=== PATIENT | female | born 1995 | race Caucasian/White ===

== ENCOUNTER 2021-02-16 08:00 | Outpatient (CLI) | payer SELFPAY | END 2021-02-16 23:59 | LOC: LAB 08:00 | PROVIDERS: ATTEND Nurse Practitioner | DX: L02.91 Cutaneous abscess, unspecified (principal) | CPT/HCPCS: 87070; 87205 ==

== ENCOUNTER 2021-06-28 07:49 | Emergency (ER) | payer OTHER ==
--- NOTE | 2021-06-28 08:19 | ED Physician Documentation ---
PD HPI UPPER EXT INJURY - Stated complaint Stated Complaint: NECK/ARM PX - Chief complaint Chief Complaint: Neuro - History obtained from History obtained from: Patient - History of Present Illness Location: Left, Shoulder, Forearm, Finger Type of injury: No: Fall, Twist (she has noted worsening of chronic neck pain, but with now feeling of radiation to shoulder and down upper arm to forearm/thumb, c/w nerve irritation, either out from neck or more likely at shoulder.) Where injury occurred: Home Timing - onset: How many days ago (few) Timing - duration: Days Timing - details: Gradual onset, Still present Improved by: No: Rest Worsened by: Moving, Palpating Associated symptoms: No: Weakness, Numbness Contributing factors: No: Anticoagulated Review of Systems Constitutional: denies: Fever, Chills Nose: denies: Rhinorrhea / runny nose, Congestion Throat: denies: Sore throat Respiratory: denies: Cough Skin: denies: Rash, Lesions PD PAST MEDICAL HISTORY - Past Medical History Cardiovascular: None Respiratory: None Neuro: Migraines - Present Medications Home Medications: Ambulatory Orders Medication Instructions Recorded Confirmed Acetaminophen [Acetaminophen Extra 500 mg PO QID PRN #50 tablet 06/28/21 Strength] Fluoxetine HCl [Prozac] 20 mg PO DAILY 06/28/21 06/28/21 dexAMETHasone [Decadron] 4 mg PO DAILY #5 tablet 06/28/21 oxyCODONE [Roxicodone] 5 mg PO Q6H PRN #15 tablet 06/28/21 tiZANidine [Zanaflex] 4 mg PO Q8H PRN #20 tablet 06/28/21 - Allergies Allergies/Adverse Reactions: Allergies Allergy/AdvReac Type Severity Reaction Status Date / Time Penicillins Allergy Unknown Verified 06/28/21 08:13 Sulfa (Sulfonamide Allergy Unknown Verified 06/28/21 08:13 Antibiotics) vancomycin Allergy Unknown Verified 06/28/21 08:13 PD ED PE NORMAL - Vitals Vital signs reviewed: Yes - General General: Alert and oriented X 3, Well developed/nourished - HEENT HEENT: PERRL, Pharynx benign - Neck Neck: Supple, no meningeal sign, No adenopathy, Other (soft tissue/muscle tenderness left paracertical area. no rash nor redness. ) - Cardiac Cardiac: RRR, No murmur Results - Vitals Vitals: Vital Signs - 24 hr 06/28/21 06/28/21 08:00 09:10 Temperature 36.5 C 36.5 C Heart Rate 74 57 L Respiratory 18 16 Rate Blood Pressure 138/85 H 120/74 O2 Saturation 98 100 Oxygen O2 Source Room air PD MEDICAL DECISION MAKING - ED course Complexity details: considered differential (seems like cervical nerve distribution. No rash nor sores. No red flags per se. ), d/w patient Departure - Departure Disposition: 01 Home, Self Care Clinical Impression: Cervical radiculopathy Condition: Stable Record reviewed to determine appropriate education?: Yes Instructions: ED Cervical Radiculopathy Follow-Up: AUGUSTO Burrell [Provider Group] Prescriptions: Acetaminophen [Acetaminophen Extra Strength] 500 mg PO QID PRN #50 tablet PRN Reason: Pain dexAMETHasone [Decadron] 4 mg PO DAILY #5 tablet oxyCODONE [Roxicodone] 5 mg PO Q6H PRN #15 tablet PRN Reason: Pain tiZANidine [Zanaflex] 4 mg PO Q8H PRN #20 tablet PRN Reason: Spasms Comments: Your symptoms sound like an irritation of a nerve root from the neck with the pattern of pain and now some numbness in the arm. We can try a combination of some anti-inflammatories and muscle relaxants along with pain medicine. Start with Decadron steroid daily for the next 5 days. You did have a dose today here in the ER. Add tizanidine muscle relaxant 3 times daily over the next week as there can be an element of spasming around the nerve roots. To that add acetaminophen 4 times daily for the pain and then oxycodone every 6- 8 hours if needed for worse pain. See how your symptoms do over the next few days. Look for signs of other symptoms such as other areas involved, rash or sores, skin sensitivity etc. These may suggest other causes. Otherwise if your symptoms persist, follow-up with your primary care later this week if possible or follow-up with walk-in or back here in the ER if not improving or worsening. I transmitted your prescriptions to [facility] in [place]. I am prescribing a short course of narcotic pain medication for you. These are potentially dangerous and addictive medications that should be used carefully. These medications may constipate you. Take an tlem-nij-qwbevie stool softener such as docusate twice daily with plenty of water while taking these medications. If you go 24 hours without a bowel movement, take dzoa-gcf-hwlhjto MiraLAX, per package instructions. Do not drink or drive while taking these medications. If you received narcotic or sedating medications while in the emergency department do not drive for 24 hours. Store this medication in a safe, secure place and out of reach of children. It is a violation of federal law to give or sell this medication to another person or to use in a manner other than prescribed. The ED will not refill narcotic prescriptions, including prescriptions lost or stolen. You can dispose of unwanted medications at the [facility]'s office or at several pharmacies such as [facility]. Discharge Date/Time: 06/28/21 09:12
[2021-06-28] MEDS ORDERED: CHERRY SYRUP 10 ML UDC PO ONE (08:39)
[2021-06-28] MEDS ORDERED: ACETAMINOPHEN 325 MG TABLET PO STA (08:39)
[2021-06-28] MEDS ORDERED: DEXAMETHASONE 10 MG/ML VIAL PO STA (08:39)
[2021-06-28] MEDS ORDERED: methocarbamoL 500 MG TABLET PO STA (08:39)
[2021-06-28 09:12] VITALS: BP 120/74
== END 2021-06-28 09:12 | disposition home or self-care (01) ==
LOC: ED 07:49
DX: M54.12 Radiculopathy, cervical region (principal)
CPT/HCPCS: 99283; 99284; A9270

== ENCOUNTER 2021-07-03 11:34 | Emergency (ER) | payer OTHER ==
[2021-07-03] MEDS ORDERED: KETOROLAC 60 MG/2 ML VIAL IM STA (12:37)
[2021-07-03] MEDS ORDERED: LIDOCAINE PATCH 5% TOP STA (12:37)
--- NOTE | 2021-07-03 12:40 | ED Physician Documentation ---
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 She is always had some level of neck pain which has never really been debilitating. 8 days ago she started to have severe left-sided neck pain radiating down to the third through fifth fingers of the left hand associated with weakness in the left hand. She was seen by my partner on Tuesday and given steroids and pain medications. Finished the steroids yesterday and pain is just as bad as it was. Denies fevers, chills. No saddle anesthesia. She has chronic stress incontinence, no overflow sounding incontinence. Review of Systems Constitutional: reports: Reviewed and negative Eyes: reports: Reviewed and negative Ears: reports: Reviewed and negative Nose: reports: Reviewed and negative Throat: reports: Reviewed and negative Cardiac: reports: Reviewed and negative PD PAST MEDICAL HISTORY - Past Medical History Past Medical History: Yes Cardiovascular: None Respiratory: None Neuro: Migraines - Present Medications Home Medications: Ambulatory Orders Medication Instructions Recorded Confirmed Acetaminophen [Acetaminophen Extra 500 mg PO QID PRN #50 tablet 06/28/21 Strength] Fluoxetine HCl [Prozac] 20 mg PO DAILY 06/28/21 06/28/21 dexAMETHasone [Decadron] 4 mg PO DAILY #5 tablet 06/28/21 oxyCODONE [Roxicodone] 5 mg PO Q6H PRN #15 tablet 06/28/21 tiZANidine [Zanaflex] 4 mg PO Q8H PRN #20 tablet 06/28/21 Morphine Ir [Ms Ir] 15 mg PO Q6H PRN #20 tablet 07/03/21 predniSONE [Deltasone] 20 mg PO [id number] #21 tab 07/03/21 - Allergies Allergies/Adverse Reactions: Allergies Allergy/AdvReac Type Severity Reaction Status Date / Time Penicillins Allergy Unknown Verified 07/03/21 11:49 Sulfa (Sulfonamide Allergy Unknown Verified 07/03/21 11:49 Antibiotics) vancomycin Allergy Unknown Verified 07/03/21 11:49 - Social History Does the pt smoke?: No Smoking Status: Never smoker PD ED PE NORMAL - Vitals Vital signs reviewed: Yes - General General: Alert and oriented X 3, No acute distress - HEENT HEENT: PERRL, EOMI - Neck Neck: Other (Tender to the left side of the neck, seemingly full range of motion.) - Extremities Extremities: Other (Weakness in flexion and extension of the left wrist with intact thumb extension and interosseous strength. Moderate loss of sensation on the medial side of the left hand.) - Neuro Neuro: Alert and oriented X 3, No motor deficit, No sensory deficit, Normal speech Eye Opening: Spontaneous Motor: Obeys Commands Verbal: Oriented GCS Score: 15 - Psych Psych: Normal mood, Normal affect Results - Vitals Vitals: Vital Signs - 24 hr 07/03/21 11:45 Temperature 37.2 C Heart Rate 73 Respiratory 16 Rate Blood Pressure 117/85 H O2 Saturation 97 Oxygen O2 Source Room air PD MEDICAL DECISION MAKING - ED course ED course: 26-year-old woman with signs and symptoms of a cervical radiculopathy, C7 likely. Discussed need for follow-up with PCM and advanced imaging which is not available today if symptoms are persistent. Departure - Departure Disposition: 01 Home, Self Care Clinical Impression: Cervical radiculopathy Condition: Good Record reviewed to determine appropriate education?: Yes Instructions: ED Cervical Radiculopathy Prescriptions: predniSONE [Deltasone] 20 mg PO [id number] #21 tab Morphine Ir [Ms Ir] 15 mg PO Q6H PRN #20 tablet PRN Reason: Pain Comments: As discussed, your symptoms are consistent with a cervical radiculopathy AKA pinched nerve in your neck. The pain can be quite severe and you will need to follow-up with your PCM to discuss further evaluation and treatment. I sent your prescriptions electronically to [facility] in [place]. I am prescribing a short course of narcotic pain medication for you. These are potentially dangerous and addictive medications that should be used carefully. These medications may constipate you. Take an naju-xai-mhrtbys stool softener (docusate) twice daily with plenty of water while taking these medications. If you go 24 hours without a bowel movement, take owyl-fdc-bmpnlpt miralax, per package instructions. Do not drink or drive while taking these medications. If you received narcotic or sedating medications while in the emergency department, do not drive for 24 hours. Store this medication in a safe, secure place and out of reach of children. It is a violation of federal law to give or sell this medication to another person or to use in a manner other than prescribed. The ED will not refill narcotic prescriptions, including prescriptions lost or stolen. To dispose of unwanted medications: 1. [facility] at [address] in [place] has a medication drop box. They accept prescription medications (in pill form) Tuesday through Tuesday 9:00 a.m. to 5:00 p.m. 2. [facility] accepts prescription medications (in pill form only) for disposal year round. Call for more information. 3. Contact the [facility] for the next [facility] sponsored prescription drug collection event. , [phone], or [phone]; Note that many narcotic pain relievers also contain Tylenol/acetaminophen. Pl ease ensure that your total dose of acetaminophen from all sources does not exceed 3 g (3000 mg) per day.
[2021-07-03 12:56] VITALS: BP 122/70
== END 2021-07-03 12:55 | disposition home or self-care (01) ==
LOC: ED 11:34
DX: M54.12 Radiculopathy, cervical region (principal)
CPT/HCPCS: 96372; 99282; 99283; A9270

== ENCOUNTER 2021-09-10 18:12 | Emergency (ER) | payer OTHER ==
--- NOTE | 2021-09-10 18:44 | ED Physician Documentation ---
PD HPI HEADACHE - Stated complaint Stated Complaint: MIGRAINE,VOMITING - Chief complaint Chief Complaint: Neuro - History obtained from History obtained from: Patient - Additional information Additional information: As a toddler she had ALL, and she also has problems with migraines. About 3 weeks ago developed a rash. It was all over and on the palms and soles. She went to her doctor who told her it was chickenpox. Rash defervesced about a week ago but then subsequently her hands peeled and she developed a migraine. She was seen again in the office and was given Nurtec and her migraine is worse after that with more vomiting. Review of Systems Constitutional: reports: Reviewed and negative Eyes: reports: Reviewed and negative Ears: reports: Reviewed and negative Throat: reports: Reviewed and negative Cardiac: reports: Reviewed and negative Respiratory: reports: Reviewed and negative PD PAST MEDICAL HISTORY - Past Medical History Cardiovascular: None Respiratory: None Neuro: Migraines - Present Medications Home Medications: Ambulatory Orders Medication Instructions Recorded Confirmed Acetaminophen [Acetaminophen Extra 500 mg PO QID PRN #50 tablet 06/28/21 Strength] Fluoxetine HCl [Prozac] 20 mg PO DAILY 06/28/21 06/28/21 dexAMETHasone [Decadron] 4 mg PO DAILY #5 tablet 06/28/21 oxyCODONE [Roxicodone] 5 mg PO Q6H PRN #15 tablet 06/28/21 tiZANidine [Zanaflex] 4 mg PO Q8H PRN #20 tablet 06/28/21 Morphine Ir [Ms Ir] 15 mg PO Q6H PRN #20 tablet 07/03/21 predniSONE [Deltasone] 20 mg PO [id number] #21 tab 07/03/21 - Allergies Allergies/Adverse Reactions: Allergies Allergy/AdvReac Type Severity Reaction Status Date / Time Penicillins Allergy Unknown Verified 09/10/21 18:24 Sulfa (Sulfonamide Allergy Unknown Verified 09/10/21 18:24 Antibiotics) vancomycin Allergy Unknown Verified 09/10/21 18:24 - Social History Does the pt smoke?: No Smoking Status: Never smoker PD ED PE NORMAL - Vitals Vital signs reviewed: Yes - General General: Alert and oriented X 3, No acute distress - HEENT HEENT: PERRL, EOMI - Neck Neck: Supple, no meningeal sign, No bony TTP, No adenopathy - Cardiac Cardiac: RRR, No murmur - Respiratory Respiratory: No respiratory distress, Clear bilaterally - Abdomen Abdomen: Non tender - Back Back: No spinal TTP - Derm Derm: Normal color, Warm and dry, Other (There is little peeling to the hands, it looks more like eczema than anything else. No other diffuse rash at this point.) - Neuro Neuro: Alert and oriented X 3, Normal speech Results - Vitals Vitals: Vital Signs - 24 hr 09/10/21 18:24 Temperature 37.1 C Heart Rate 97 Respiratory 18 Rate Blood Pressure 149/86 H O2 Saturation 99 Oxygen O2 Source Room air - Labs Labs: Laboratory Tests 09/10/21 09/10/21 09/10/21 18:53 18:53 18:53 WBC 8.3 RBC 4.28 Hgb 13.8 Hct 40.3 MCV 94.2 MCH 32.2 H MCHC 34.2 RDW 12.2 Plt Count 247 MPV 10.5 Neut # (Auto) 4.8 Lymph # (Auto) 2.2 [place] # (Auto) 0.5 Eos # (Auto) 0.7 Baso # (Auto) 0.1 Absolute Nucleated RBC 0.00 Nucleated RBC % 0.0 ESR 1 Sodium 141 Potassium 3.4 L Chloride 103 Carbon Dioxide 28 Anion Gap 10.0 BUN 11 Creatinine 0.7 Estimated GFR (MDRD) 100 Glucose 93 Calcium 9.8 Total Bilirubin 0.9 AST 16 ALT 14 Alkaline Phosphatase 42 C-Reactive Protein < 1.0 Total Protein 7.3 Albumin 5.0 Globulin 2.3 Albumin/Globulin Ratio 2.2 Urine Color Urine Clarity Urine pH Ur Specific [place] Urine Protein Urine Glucose (UA) Urine Ketones Urine Occult Blood Urine Nitrite Urine Bilirubin Urine Urobilinogen Ur Leukocyte Esterase Ur Microscopic Review Urine Culture Comments Urine HCG, Qual 09/10/21 09/10/21 18:55 18:55 WBC RBC Hgb Hct MCV MCH MCHC RDW Plt Count MPV Neut # (Auto) Lymph # (Auto) [place] # (Auto) Eos # (Auto) Baso # (Auto) Absolute Nucleated RBC Nucleated RBC % ESR Sodium Potassium Chloride Carbon Dioxide Anion Gap BUN Creatinine Estimated GFR (MDRD) Glucose Calcium Total Bilirubin AST ALT Alkaline Phosphatase C-Reactive Protein Total Protein Albumin Globulin Albumin/Globulin Ratio Urine Color YELLOW Urine Clarity CLEAR Urine pH 6.0 Ur Specific [place] 1.025 Urine Protein TRACE Urine Glucose (UA) NEGATIVE Urine Ketones TRACE Urine Occult Blood NEGATIVE Urine Nitrite NEGATIVE Urine Bilirubin NEGATIVE Urine Urobilinogen 1 (NORMAL) Ur Leukocyte Esterase NEGATIVE Ur Microscopic Review NOT INDICATED Urine Culture Comments NOT INDICATED Urine HCG, Qual NEGATIVE PD MEDICAL DECISION MAKING - ED course ED course: 26-year-old woman with resolving rash of unclear etiology. Also migraine headache. Labs were checked and unremarkable including normal sed rate and CRP making a inflammatory or infectious cause unlikely. For the migraine she was driving but was administered Toradol and Reglan with relief. Departure - Departure Disposition: 01 Home, Self Care Clinical Impression: Rash and nonspecific skin eruption Migraine Qualifiers: Migraine type: unspecified Status migrainosus presence: with status migrainosus Intractability: not intractable Qualified Code(s): G43.901 - Migraine, unspecified, not intractable, with status migrainosus Condition: Good Record reviewed to determine appropriate education?: Yes Instructions: ED Headache Migraine Comments: As discussed your inflammatory markers, specifically erythrocyte sedimentation r ate and C-reactive protein are normal. This makes a serious cause of the rash very unlikely. Return for new or worsening symptoms. Follow-up with your primary care physician for recheck next week,
[2021-09-10] MEDS ORDERED: SODIUM CHLORIDE 0.9% 1,000 ML IV STA (18:45)
[2021-09-10] MEDS ORDERED: METOCLOPRAMIDE 10 MG/2 ML VIAL IVP STA (18:45)
[2021-09-10] MEDS ORDERED: KETOROLAC 15 MG/ML VIAL IVP STA (18:45)
[2021-09-10 18:59] LABS: BASOPHILS # (AUTO) 0.1 10^3/uL (0.0-0.1); EOSINOPHILS # (AUTO) 0.7 10^3/uL (0.0-0.7); HCT - HEMATOCRIT 40.3 % (37.0-47.0); HGB - HEMOGLOBIN 13.8 g/dL (12.0-16.0); LYMPHOCYTES # (AUTO) 2.2 10^3/uL (1.5-3.5); LYMPHOCYTES % (AUTO) 26.8 %; MEAN CORPUSCULAR HEMOGLOBIN 32.2 pg (27.0-31.0); MEAN CORPUSCULAR HGB CONC 34.2 g/dL (32.0-36.0); MEAN CORPUSCULAR VOLUME 94.2 fL (81.0-99.0); MEAN PLATELET VOLUME 10.5 fL (7.9-10.8); MONOCYTES # (AUTO) 0.5 10^3/uL (0.0-1.0); MONOCYTES % (AUTO) 6.3 %; NEUTROPHILS # (AUTO) 4.8 10^3/uL (1.5-6.6); NEUTROPHILS % (AUTO) 57.7 %; PLT - PLATELET COUNT 247 10^3/uL (130-450); RED BLOOD COUNT 4.28 10^6/uL (4.20-5.40); RED CELL DISTRIBUTION WIDTH 12.2 % (12.0-15.0); WHITE BLOOD COUNT 8.3 x10^3/uL (4.8-10.8)
--- OUTSIDE RECORDS SUMMARY | 2021-09-10 19:00 | EXTERNAL MEDICAL SUMMARY RPT | Continuity of Care Document ---
:1995 Author Organization [place] Address [address] [place] [address] Phone Allergies and Intolerances date description facility type (no date) [place] [facility] (unknown) (no date) Sulfa (Sulfonamide Antibiotics) [facility] (unknown) (no date) vancomycin [facility] (unknown) Encounters No information. Functional Status No information. Immunizations No information. Medications date description facility + [facility]ocarbamol 750 [facility] gab[facility] 300 MG Oral Capsule [facility] +0000 tramadol hydrochloride 50 MG Oral Tabl et [facility] +0000 Diclofenac Sodium 0.01 MG/MG Topical G el [facility] Problems No information. Procedures date description facility +0000 General Physician [facility] Results/Labs test date author facility value unit interpret ation Result panel 1 (unknown) (no date) (unknown) (unknown) 0 /uL (unkn own) (unknown) (no date) (unknown) (unknown) 0 /uL (unkn own) (unknown) (no date) (unknown) (unknown) 0.1 % (unkn own) (unknown) (no date) (unknown) (unknown) 0.2 % (unkn own) (unknown) (no date) (unknown) (unknown) 1.7 % (unkn own) (unknown) (no date) (unknown) (unknown) 91857 /uL (unkn own) (unknown) (no date) (unknown) (unknown) 13.1 X10 3/uL (unkn own) (unknown) (no date) (unknown) (unknown) 13.5 % (unkn own) (unknown) (no date) (unknown) (unknown) 13.6 g/dL (unkn own) (unknown) (no date) (unknown) (unknown) 200 /uL (unkn own) (unknown) (no date) (unknown) (unknown) 290 X10 3/uL (unkn own) (unknown) (no date) (unknown) (unknown) 31.9 PG (unkn own) (unknown) (no date) (unknown) (unknown) 33.7 % (unkn own) (unknown) (no date) (unknown) (unknown) 4.27 X10 6/uL (unkn own) (unknown) (no date) (unknown) (unknown) 40.4 % (unkn own) (unknown) (no date) (unknown) (unknown) 6.5 % (unkn own) (unknown) (no date) (unknown) (unknown) 800 /uL (unkn own) (unknown) (no date) (unknown) (unknown) 91.5 % (unkn own) (unknown) (no date) (unknown) (unknown) 94.6 fL (unkn own) Result panel 2 (unknown) (no date) (unknown) (unknown) > 60 mL/min (unkn own) (unknown) (no date) (unknown) (unknown) < 0.5 mg/dL (unkn own) (unknown) (no date) (unknown) (unknown) 0.2 mg/dL (unkn own) (unknown) (no date) (unknown) (unknown) 0.92 mg/dL (unkn own) (unknown) (no date) (unknown) (unknown) 1.9 (units unknown) (unknown) (unknown) (no date) (unknown) (unknown) 100 mmol/L (unkn own) (unknown) (no date) (unknown) (unknown) 138 mmol/L (unkn own) (unknown) (no date) (unknown) (unknown) 142 mg/dL (unkn own) (unknown) (no date) (unknown) (unknown) 19 mg/dL (unkn own) (unknown) (no date) (unknown) (unknown) 2.5 g/dL (unkn own) (unknown) (no date) (unknown) (unknown) 20.7 (units unknown) (unknown) (unknown) (no date) (unknown) (unknown) 26 IU/L (unkn own) (unknown) (no date) (unknown) (unknown) 32 mmol/L (unkn own) (unknown) (no date) (unknown) (unknown) 4.6 mmol/L (unkn own) (unknown) (no date) (unknown) (unknown) 4.7 g/dL (unkn own) (unknown) (no date) (unknown) (unknown) 53 IU/L (unkn own) (unknown) (no date) (unknown) (unknown) 55 U/L (unkn own) (unknown) (no date) (unknown) (unknown) 7.2 g/dL (unkn own) (unknown) (no date) (unknown) (unknown) 9.2 mg/dL (unkn own) Result panel 3 (unknown) (no date) (unknown) (unknown) 0 /uL (unkn own) (unknown) (no date) (unknown) (unknown) 0 /uL (unkn own) (unknown) (no date) (unknown) (unknown) 0.1 % (unkn own) (unknown) (no date) (unknown) (unknown) 0.2 % (unkn own) (unknown) (no date) (unknown) (unknown) 1.7 % (unkn own) (unknown) (no date) (unknown) (unknown) 94545 /uL (unkn own) (unknown) (no date) (unknown) (unknown) 13.1 X10 3/uL (unkn own) (unknown) (no date) (unknown) (unknown) 13.5 % (unkn own) (unknown) (no date) (unknown) (unknown) 13.6 g/dL (unkn own) (unknown) (no date) (unknown) (unknown) 2 MM/HR (unkn own) (unknown) (no date) (unknown) (unknown) 200 /uL (unkn own) (unknown) (no date) (unknown) (unknown) 290 X10 3/uL (unkn own) (unknown) (no date) (unknown) (unknown) 31.9 PG (unkn own) (unknown) (no date) (unknown) (unknown) 33.7 % (unkn own) (unknown) (no date) (unknown) (unknown) 4.27 X10 6/uL (unkn own) (unknown) (no date) (unknown) (unknown) 40.4 % (unkn own) (unknown) (no date) (unknown) (unknown) 6.5 % (unkn own) (unknown) (no date) (unknown) (unknown) 800 /uL (unkn own) (unknown) (no date) (unknown) (unknown) 91.5 % (unkn own) (unknown) (no date) (unknown) (unknown) 94.6 fL (unkn own) Result panel 4 (unknown) (no (unknown) (unknown) (no value) (units (unk nown) date) unknown) (unknown) (no (unknown) (unknown) [address] [place] [address] (units (unknown) date) unknown) (unknown) (no (unknown) (unknown) [place], [place] (units ( unknown) date) [id number] unknown) (unknown) (no (unknown) (unknown) CT Scan Report (units (unknown) date) unknown) (unknown) (no (unknown) (unknown) [facility] (units (unknown) date) unknown) (unknown) (no (unknown) (unknown) Signed (units (unkno wn) date) unknown) (unknown) (no (unknown) (unknown) (no value) (units (unk nown) date) unknown) (unknown) (no (unknown) (unknown) 07/07/21 (units (unkno wn) date) unknown) (unknown) (no (unknown) (unknown) 1. No acute (units (un known) date) intracranial unknown) abnormalities. (unknown) (no (unknown) (unknown) Approved by: (units (u nknown) date) Paul Aranda M.D. unknown) on 07/07/2021 at 14:59 (unknown) (no (unknown) (unknown) Approved by: (units (u nknown) date) Paul Aranda M.D. unknown) on 07/07/2021 at 15:05 (unknown) (no (unknown) (unknown) Bones: No (units (unk nown) date) fractures or unknown) dislocations. There is loss of normal cervical (unknown) (no (unknown) (unknown) Brain: No (units (unk nown) date) midline shift. unknown) No intracranial masses or hemorrhage. Wood-white (unknown) (no (unknown) (unknown) COMPARISON: (units (un known) date) None. unknown) (unknown) (no (unknown) (unknown) CSF spaces: (units (un known) date) Basal cisterns unknown) are patent. No extra-axial fluid collections. (unknown) (no (unknown) (unknown) Dictated by: (units (u nknown) date) Paul Aranda M.D. unknown) on 07/07/2021 at 14:58 (unknown) (no (unknown) (unknown) Dictated by: (units (u nknown) date) Paul Aranda M.D. unknown) on 07/07/2021 at 15:00 (unknown) (no (unknown) (unknown) FINDINGS: (units (unkn own) date) unknown) (unknown) (no (unknown) (unknown) IMPRESSION: (units (un known) date) unknown) (unknown) (no (unknown) (unknown) IMPRESSION: (units (un known) date) Loss of normal unknown) cervical lordosis. No fracture. (unknown) (no (unknown) (unknown) INDICATIONS: (units (u nknown) date) head and neck unknown) pain x3 weeks (unknown) (no (unknown) (unknown) Image quality: (units (unknown) date) Excellent. unknown) (unknown) (no (unknown) (unknown) Noncontrast 3 mm (units (unknown) date) thick sections unknown) acquired from the skull base to the T4 level. (unknown) (no (unknown) (unknown) Noncontrast 4.5 (units (unknown) date) mm thick angled unknown) axial sections acquired from the foramen magnum (unknown) (no (unknown) (unknown) Sinuses: (units (unkno wn) date) Visualized unknown) sinuses and mastoids are clear. (unknown) (no (unknown) (unknown) Skull and face: (units (unknown) date) Calvarium and unknown) visualized facial bones are intact, without (unknown) (no (unknown) (unknown) Soft tissues: (units ( unknown) date) Prevertebral soft unknown) tissues are normal in thickness. No (unknown) (no (unknown) (unknown) TECHNIQUE: (units (unk nown) date) unknown) (unknown) (no (unknown) (unknown) Visualized (units (unk nown) date) superior ribs are unknown) intact. (unknown) (no (unknown) (unknown) and coronal (units (un known) date) reformats were unknown) then constructed. For radiation dose reduction, the (unknown) (no (unknown) (unknown) are normal in (units ( unknown) date) size and shape. unknown) (unknown) (no (unknown) (unknown) hematomas. No (units (unknown) date) apical unknown) pneumothoraces. (unknown) (no (unknown) (unknown) interface is (units (u nknown) date) normal. unknown) (unknown) (no (unknown) (unknown) lesions. (units (unkno wn) date) unknown) (unknown) (no (unknown) (unknown) size. (units (unkno wn) date) unknown) (unknown) (no (unknown) (unknown) vertex, with (units (u nknown) date) coronal and unknown) sagittal reformats. For radiation dose reduction, the (unknown) (no (unknown) (unknown) was used: (units (unkn own) date) automated unknown) exposure control, adjustment of mA and/or kV according to (unknown) (no (unknown) (unknown) [id number] (units (unkno wn) date) unknown) (unknown) (no (unknown) (unknown) Accession (units (unkn own) date) Number: unknown) [id number] (unknown) (no (unknown) (unknown) Accession (units (unkn own) date) Number: unknown) [id number] (unknown) (no (unknown) (unknown) Age/Sex: 26 / F (units (unknown) date) Date of unknown) Service: (unknown) (no (unknown) (unknown) : 1995 (units (unknown) date) Acct:[id number] unknown) (unknown) (no (unknown) (unknown) Loc: ED (units (unkno wn) date) unknown) (unknown) (no (unknown) (unknown) Ordering (units (unkno wn) date) Provider: unknown) Latonya Mishra (unknown) (no (unknown) (unknown) PROCEDURE: CT (units (unknown) date) CERVICAL SPINE WO unknown) CON (unknown) (no (unknown) (unknown) PROCEDURE: CT (units (unknown) date) HEAD/BRAIN WO CON unknown) (unknown) (no (unknown) (unknown) Patient: (units (unkno wn) date) [address] L unknown) MR#: [id number] (unknown) (no (unknown) (unknown) Procedure: CT (units ( unknown) date) cervical spine wo unknown) con (unknown) (no (unknown) (unknown) Procedure: CT (units ( unknown) date) head/brain wo con unknown) (unknown) (no (unknown) (unknown) Sagittal (units (unkno wn) date) unknown) (unknown) (no (unknown) (unknown) Ventricles (units (unk nown) date) unknown) (unknown) (no (unknown) (unknown) following (units (unkn own) date) unknown) (unknown) (no (unknown) (unknown) lordosis. (units (unkn own) date) unknown) (unknown) (no (unknown) (unknown) matter (units (unkno wn) date) unknown) (unknown) (no (unknown) (unknown) paravertebral (units ( unknown) date) unknown) (unknown) (no (unknown) (unknown) patient (units (unkno wn) date) unknown) (unknown) (no (unknown) (unknown) suspicious (units (unk nown) date) unknown) (unknown) (no (unknown) (unknown) to the (units (unkno wn) date) unknown) Result panel 5 (unknown) (no (unknown) (unknown) (no value) (units (unk nown) date) unknown) (unknown) (no (unknown) (unknown) *Please continue (units (unknown) date) to take your unknown) regular medications as directed. (unknown) (no (unknown) (unknown) Date of Service: (units (unknown) date) 07/07/21 unknown) (unknown) (no (unknown) (unknown) (no value) (units (unk nown) date) unknown) (unknown) (no (unknown) (unknown) 07/07/21 14:12 (units (unknown) date) unknown) (unknown) (no (unknown) (unknown) 1 patch topical (units (unknown) date) BID PRN (Reason: unknown) pain) Qty: 15 0RF (unknown) (no (unknown) (unknown) 2 g topical QID (units (unknown) date) Qty: 100 0RF unknown) (unknown) (no (unknown) (unknown) 600 mg PO TID 14 (units (unknown) date) Days Qty: 84 0RF unknown) (unknown) (no (unknown) (unknown) Allergies (units (unkn own) date) unknown) (unknown) (no (unknown) (unknown) ED Orders (units (unkn own) date) unknown) (unknown) (no (unknown) (unknown) Emergency Report (units (unknown) date) unknown) (unknown) (no (unknown) (unknown) [facility] (units (unknown) date) [address] unknown) [place] [address] (unknown) (no (unknown) (unknown) Lab Results (units (un known) date) unknown) (unknown) (no (unknown) (unknown) Previous Rx's (units ( unknown) date) unknown) (unknown) (no (unknown) (unknown) Rx Instructions: (units (unknown) date) unknown) (unknown) (no (unknown) (unknown) Skin (units (unkno wn) date) unknown) (unknown) (no (unknown) (unknown) Stop: 07/07/21 (units (unknown) date) 15:19 unknown) (unknown) (no (unknown) (unknown) Vital Signs - 8 (units (unknown) date) hr unknown) (unknown) (no (unknown) (unknown) [ ] New (units (unkno wn) date) medication written unknown) as a paper prescription (unknown) (no (unknown) (unknown) [ ] No new (units (unk nown) date) medications given unknown) (unknown) (no (unknown) (unknown) [ x] New (units (unkno wn) date) medication unknown) prescriptions sent to your pharmacy: [ [facility] (unknown) (no (unknown) (unknown) apply to single (units (unknown) date) elbow, wrist or unknown) hand; for hand includes palm/fingers/back of (unknown) (no (unknown) (unknown) leave on most (units ( unknown) date) painful area for unknown) up to 12 hrs (unknown) (no (unknown) (unknown) (no value) (units (unk nown) date) unknown) (unknown) (no (unknown) (unknown) 07/07/21 07/07/21 (units (unknown) date) Range/Units unknown) (unknown) (no (unknown) (unknown) 14:12 14:12 (units (un known) date) unknown) (unknown) (no (unknown) (unknown) diclofenac sodium (units (unknown) date) [Voltaren unknown) Arthritis Pain] 1 % gel (unknown) (no (unknown) (unknown) gabapentin 300 mg (units (unknown) date) capsule unknown) (unknown) (no (unknown) (unknown) lidocaine (units (unkn own) date) [Lidoderm] 5 % unknown) adhesive patch,medicated (unknown) (no (unknown) (unknown) 07/07/21 (units (unkno wn) date) unknown) (unknown) (no (unknown) (unknown) 3 weeks of (units (unk nown) date) left-sided neck unknown) pain, neuropathy, fatigue, multiple locations of (unknown) (no (unknown) (unknown) Acute neck pain, (units (unknown) date) Fatigue unknown) (unknown) (no (unknown) (unknown) Farson] (units (unkno wn) date) unknown) (unknown) (no (unknown) (unknown) Medication (units (unk nown) date) Instructions unknown) Recorded (unknown) (no (unknown) (unknown) Peripheral (units (unk nown) date) neuropathy type: unknown) polyneuropathy, unspecified Qualified Code(s): (unknown) (no (unknown) (unknown) try and stay (units (u nknown) date) active as your unknown) body allows, this will help release Endo (unknown) (no (unknown) (unknown) (Lidoderm) (units (unk nown) date) unknown) (unknown) (no (unknown) (unknown) (Voltaren (units (unkn own) date) Arthritis Pain) unknown) (unknown) (no (unknown) (unknown) *If you do not (units (unknown) date) have a primary unknown) care provider please contact [phone] to (unknown) (no (unknown) (unknown) *Please follow up (units (unknown) date) with your primary unknown) care provider in 2-3 days, call for an (unknown) (no (unknown) (unknown) *Return to (units (unk nown) date) Emergency unknown) Department if you should have any new, worsening or (unknown) (no (unknown) (unknown) *What to do: (units (u nknown) date) unknown) (unknown) (no (unknown) (unknown) *You have been (units (unknown) date) diagnosed with unknown) pain in multiple locations, fatigue, insomnia, (unknown) (no (unknown) (unknown) 07/07/21 14:12 (units (unknown) date) unknown) (unknown) (no (unknown) (unknown) 07/07/21 15:33 (units (unknown) date) unknown) (unknown) (no (unknown) (unknown) 12:48 (units (unkno wn) date) unknown) (unknown) (no (unknown) (unknown) 9601 (units (unkno wn) date) unknown) (unknown) (no (unknown) (unknown) ALT 53 H (<35) (units (unknown) date) IU/L unknown) (unknown) (no (unknown) (unknown) AST 26 (14-36) (units (unknown) date) IU/L unknown) (unknown) (no (unknown) (unknown) Acetaminophen (units ( unknown) date) (Acetaminophen 325 unknown) Mg Tablet) 975 mg PO NOW ONE (unknown) (no (unknown) (unknown) Activity (units (unkno wn) date) Restrictions/Addit unknown) ional Instructions: (unknown) (no (unknown) (unknown) Age/Sex: 26 / F (units (unknown) date) unknown) (unknown) (no (unknown) (unknown) Albumin 4.7 (units ( unknown) date) (3.5-5.0) g/dL unknown) (unknown) (no (unknown) (unknown) Albumin/Globulin (units (unknown) date) Ratio 1.9 unknown) (1.0-2.8) (unknown) (no (unknown) (unknown) Alkaline (units (unkno wn) date) Phosphatase 55 unknown) (38-126) U/L (unknown) (no (unknown) (unknown) Allergy/AdvReac (units (unknown) date) Type Severity unknown) Reaction Status Date / Time (unknown) (no (unknown) (unknown) Antibiotics) (units (u nknown) date) unknown) (unknown) (no (unknown) (unknown) BUN 19 H (units (unk nown) date) (7-17) mg/dL unknown) (unknown) (no (unknown) (unknown) BUN/Creatinine (units (unknown) date) Ratio 20.7 unknown) (6-22) (unknown) (no (unknown) (unknown) Baso # (Auto) 0 (units (unknown) date) (0-100) /uL unknown) (unknown) (no (unknown) (unknown) Baso % (Auto) (units ( unknown) date) 0.2 (0-2) % unknown) (unknown) (no (unknown) (unknown) Blood Pressure (units (unknown) date) 143/72 H 07/07/21 unknown) 12:48 (unknown) (no (unknown) (unknown) Blood Pressure (units (unknown) date) 143/72 H unknown) (unknown) (no (unknown) (unknown) C-Reactive (units (unk nown) date) Protein < 0.5 unknown) (<1.0) mg/dL (unknown) (no (unknown) (unknown) CBC Auto Diff (units ( unknown) date) [Complete Blood unknown) Count AUTO DIFF] Stat (unknown) (no (unknown) (unknown) CMP (units (unkno wn) date) [Comprehensive unknown) Metabolic Panel] Stat (unknown) (no (unknown) (unknown) CRP [C-Reactive (units (unknown) date) Protein Quant] unknown) Stat (unknown) (no (unknown) (unknown) CT cervical spine (units (unknown) date) wo con Stat unknown) (unknown) (no (unknown) (unknown) CT head/brain wo (units (unknown) date) con Stat unknown) (unknown) (no (unknown) (unknown) Calcium 9.2 (units ( unknown) date) (8.4-10.2) mg/dL unknown) (unknown) (no (unknown) (unknown) Carbon Dioxide (units (unknown) date) 32 (22-32) unknown) mmol/L (unknown) (no (unknown) (unknown) Cardio: denies (units (unknown) date) chest pain, unknown) palpitations, edema (unknown) (no (unknown) (unknown) Cardiovascular: (units (unknown) date) regular rate and unknown) rhythm, no peripheral edema, warm extremities (unknown) (no (unknown) (unknown) Chief Complaint: (units (unknown) date) Neck Pain/Injury unknown) (unknown) (no (unknown) (unknown) Chloride 100 (units (unknown) date) (98-107) mmol/L unknown) (unknown) (no (unknown) (unknown) Clinical (units (unkno wn) date) Impression: unknown) (unknown) (no (unknown) (unknown) Course (units (unkno wn) date) unknown) (unknown) (no (unknown) (unknown) Creatinine 0.92 (units (unknown) date) (0.52-1.04) unknown) mg/dL (unknown) (no (unknown) (unknown) : 1995 (units (unknown) date) Acct:[id number] unknown) (unknown) (no (unknown) (unknown) Departure (units (unkn own) date) unknown) (unknown) (no (unknown) (unknown) Discharge Plan (units (unknown) date) unknown) (unknown) (no (unknown) (unknown) Discontinued (units (u nknown) date) Medications unknown) (unknown) (no (unknown) (unknown) ER Physician: (units ( unknown) date) Latonya Mishra unknown) [employer] (unknown) (no (unknown) (unknown) ESR 2 (0-20) (units (unknown) date) MM/HR unknown) (unknown) (no (unknown) (unknown) Eos # (Auto) 0 (units (unknown) date) (0-450) /uL unknown) (unknown) (no (unknown) (unknown) Eos % (Auto) 0.1 (units (unknown) date) L (2-4) % unknown) (unknown) (no (unknown) (unknown) Erythrocyte (units (un known) date) Sedimentation Rate unknown) Stat (unknown) (no (unknown) (unknown) Estimated GFR > (units (unknown) date) 60 (>60) mL/min unknown) (unknown) (no (unknown) (unknown) Exam (units (unkno wn) date) unknown) (unknown) (no (unknown) (unknown) Exam Narrative: (units (unknown) date) unknown) (unknown) (no (unknown) (unknown) Eyes: denies (units (u nknown) date) visual changes, unknown) eye pain (unknown) (no (unknown) (unknown) Eyes: pupils (units (u nknown) date) equal round and unknown) reactive, EOMI, conjunctiva normal (unknown) (no (unknown) (unknown) G62.9 - (units (unkno wn) date) Polyneuropathy, unknown) unspecified (unknown) (no (unknown) (unknown) GI: abdomen soft, (units (unknown) date) nontender to unknown) palpation, nondistended, no masses, no exquisite (unknown) (no (unknown) (unknown) GI: denies (units (unk n) date) abdominal pain, unknown) nausea, vomiting, or diarrhea (unknown) (no (unknown) (unknown) : denies (units (unk n) date) dysuria, unknown) hematuria, urinary retention, frequency or incontinence (unknown) (no (unknown) (unknown) Gabapentin (units (un) date) (Gabapentin 300 Mg unknown) Capsule) 300 mg PO NOW ONE (unknown) (no (unknown) (unknown) General (units (o wn) date) unknown) (unknown) (no (unknown) (unknown) General: (units (o wn) date) cooperative, unknown) comfortable, in no acute distress, well developed and well (unknown) (no (unknown) (unknown) General: denies (units (unknown) date) fever, chills, unknown) malaise, sweats, endorses daily and crippling (unknown) (no (unknown) (unknown) GenericComposite[ (units (unknown) date) Plt Count 290 unknown) (150-400) X10^3/uL ] (unknown) (no (unknown) (unknown) GenericComposite[ (units (unknown) date) RBC 4.27 unknown) (4.0-5.2) X10^6/uL ] (unknown) (no (unknown) (unknown) GenericComposite[ (units (unknown) date) WBC 13.1 H unknown) (4.5-11.0) X10^3/uL ] (unknown) (no (unknown) (unknown) Globulin 2.5 (units (unknown) date) (1.7-4.1) g/dL unknown) (unknown) (no (unknown) (unknown) Glucose 142 H (units (unknown) date) (70-100) mg/dL unknown) (unknown) (no (unknown) (unknown) HPI - Neck (units (unk nown) date) Pain/Injury unknown) (unknown) (no (unknown) (unknown) HPI Narrative: (units (unknown) date) unknown) (unknown) (no (unknown) (unknown) Hct 40.4 (units (unkn own) date) (36-46) % unknown) (unknown) (no (unknown) (unknown) Head/Neck: denies (units (unknown) date) headache, neck unknown) pain, dizziness (unknown) (no (unknown) (unknown) Head: atraumatic, (units (unknown) date) symmetrical facial unknown) expressions (unknown) (no (unknown) (unknown) Hgb 13.6 (units (unkn own) date) (12.0-16.0) g/dL unknown) (unknown) (no (unknown) (unknown) History of (units (unk nown) date) Present Illness unknown) (unknown) (no (unknown) (unknown) Independently (units ( unknown) date) reviewed vitals unknown) signs and nursing notes. (unknown) (no (unknown) (unknown) Initial Vital (units ( unknown) date) Signs unknown) (unknown) (no (unknown) (unknown) Initial Vital (units ( unknown) date) Signs: unknown) (unknown) (no (unknown) (unknown) Instructions: (units ( unknown) date) Fibromyalgia unknown) (Alternative Therapy), Complex Regional Pain (unknown) (no (unknown) (unknown) Lab Data (units (unkno wn) date) unknown) (unknown) (no (unknown) (unknown) Labs: (units (unkno wn) date) unknown) (unknown) (no (unknown) (unknown) Latuda 2 months (units (unknown) date) ago cold turkey unknown) because she ran out and did not have a (unknown) (no (unknown) (unknown) Lidocaine (units (unkn own) date) (Lidocaine Patch 1 unknown) Each Adh..Patch) 1 each TOP NOW ONE (unknown) (no (unknown) (unknown) Lymph # (Auto) (units (unknown) date) 800 L unknown) (4449-5115) /uL (unknown) (no (unknown) (unknown) Lymph % (Auto) (units (unknown) date) 6.5 L (25-40) % unknown) (unknown) (no (unknown) (unknown) MCH 31.9 (units (unkn own) date) (26-34) PG unknown) (unknown) (no (unknown) (unknown) MCHC 33.7 (units (unk nown) date) (30-36) % unknown) (unknown) (no (unknown) (unknown) MCV 94.6 (units (unkn own) date) (80-100) fL unknown) (unknown) (no (unknown) (unknown) MDM - Neck (units (unk nown) date) Pain/Injury unknown) (unknown) (no (unknown) (unknown) MDM Narrative (units ( unknown) date) unknown) (unknown) (no (unknown) (unknown) MSK: denies joint (units (unknown) date) pain, muscle unknown) weakness (unknown) (no (unknown) (unknown) MSK: moves all (units ( unknown) date) extremities, unknown) ambulatory w/steady gait, neurovascularly intact, no (unknown) (no (unknown) (unknown) Medical decision (units (unknown) date) making narrative: unknown) (unknown) (no (unknown) (unknown) Mode of arrival: (units (unknown) date) Ambulatory unknown) (unknown) (no (unknown) (unknown) [place] # (Auto) (units ( unknown) date) 200 (0-900) /uL unknown) (unknown) (no (unknown) (unknown) [place] % (Auto) (units ( unknown) date) 1.7 L (3-14) % unknown) (unknown) (no (unknown) (unknown) Mouth/Throat: (units ( unknown) date) uvula midline, unknown) moist mucus membranes (unknown) (no (unknown) (unknown) Narrative (units (unkn own) date) unknown) (unknown) (no (unknown) (unknown) Narrative: (units (unk nown) date) unknown) (unknown) (no (unknown) (unknown) Neck: supple, (units ( unknown) date) atraumatic, unknown) without lymphadenopathy. Patient has left trapezius (unknown) (no (unknown) (unknown) Neuro: denies (units ( unknown) date) numbness, tingling unknown) (unknown) (no (unknown) (unknown) Neuro: normal (units ( unknown) date) speech and unknown) cognition, A+O x3, normal tone (unknown) (no (unknown) (unknown) Neut # (Auto) (units ( unknown) date) 24342 H unknown) ([id number]) /uL (unknown) (no (unknown) (unknown) Neut % (Auto) (units ( unknown) date) 91.5 H (50-75) unknown) % (unknown) (no (unknown) (unknown) New (units (unkno wn) date) unknown) (unknown) (no (unknown) (unknown) Nose: nares (units (un known) date) patent, no unknown) rhinorrhea (unknown) (no (unknown) (unknown) Ordered: (units (unkno wn) date) unknown) (unknown) (no (unknown) (unknown) Orders (units (unkno wn) date) unknown) (unknown) (no (unknown) (unknown) Patient (units (unkno wn) date) Disposition: Home unknown) (unknown) (no (unknown) (unknown) Patient History (units (unknown) date) unknown) (unknown) (no (unknown) (unknown) Patient states (units (unknown) date) she does not want unknown) to start taking Latuda again because she did (unknown) (no (unknown) (unknown) Patient: (units (unkno wn) date) [address]ittni [address] unknown) MR#: [id number] (unknown) (no (unknown) (unknown) Penicillins (units (un known) date) Allergy Verified unknown) 07/07/21 12:53 (unknown) (no (unknown) (unknown) Peripheral (units (unk nown) date) neuropathy unknown) (unknown) (no (unknown) (unknown) Potassium 4.6 (units (unknown) date) (3.4-5.1) mmol/L unknown) (unknown) (no (unknown) (unknown) Prescriptions: (units (unknown) date) unknown) (unknown) (no (unknown) (unknown) Psych: mental (units ( unknown) date) status is grossly unknown) normal, congruent mood, normal affect, pleasant (unknown) (no (unknown) (unknown) Pulse Oximetry (units (unknown) date) 98 07/07/21 unknown) 12:48 (unknown) (no (unknown) (unknown) Pulse Oximetry 98 (units (unknown) date) unknown) (unknown) (no (unknown) (unknown) Pulse Rate 65 (units (unknown) date) 07/07/21 12:48 unknown) (unknown) (no (unknown) (unknown) Pulse Rate 65 (units ( unknown) date) unknown) (unknown) (no (unknown) (unknown) Qualifiers: (units (un known) date) unknown) (unknown) (no (unknown) (unknown) RDW 13.5 (units (unkn own) date) (11.6-14.8) % unknown) (unknown) (no (unknown) (unknown) Referrals: (units (unk nown) date) unknown) (unknown) (no (unknown) (unknown) Related Data (units (u nknown) date) unknown) (unknown) (no (unknown) (unknown) Respiratory Rate (units (unknown) date) 16 07/07/21 unknown) 12:48 (unknown) (no (unknown) (unknown) Respiratory Rate (units (unknown) date) 16 unknown) (unknown) (no (unknown) (unknown) Respiratory: (units (u nknown) date) denies dyspnea, unknown) cough, orthopnea (unknown) (no (unknown) (unknown) Respiratory: (units (u nknown) date) normal effort, unknown) able to speak in complete sentences, no audible (unknown) (no (unknown) (unknown) Result diagrams: (units (unknown) date) unknown) (unknown) (no (unknown) (unknown) Review of Systems (units (unknown) date) unknown) (unknown) (no (unknown) (unknown) Signed By: (units (unk nown) date) unknown) (unknown) (no (unknown) (unknown) Skin: brisk (units (un known) date) capillary refill, unknown) no rash, no erythema (unknown) (no (unknown) (unknown) Skin: denies (units (u nknown) date) rash, itching, unknown) skin lesions or other (unknown) (no (unknown) (unknown) Smoking Status: (units (unknown) date) Current every day unknown) smoker (unknown) (no (unknown) (unknown) Smoking Status: (units (unknown) date) Current every day unknown) smoker (unknown) (no (unknown) (unknown) Social History (units (unknown) date) (Reviewed 07/07/21 unknown) @ 15:40 by TOMY Horton) (unknown) (no (unknown) (unknown) Sodium 138 (units (u nknown) date) (137-145) mmol/L unknown) (unknown) (no (unknown) (unknown) Stated Complaint: (units (unknown) date) NECK PAIN TINGLING unknown) OF HAND AND ARMS TIRED (unknown) (no (unknown) (unknown) Substance Use (units ( unknown) date) Type: does not use unknown) (unknown) (no (unknown) (unknown) Sulfa (units (unkno wn) date) (Sulfonamide unknown) Allergy Verified 07/07/21 12:53 (unknown) (no (unknown) (unknown) Syndrome, DI for (units (unknown) date) Neck Pain unknown) (unknown) (no (unknown) (unknown) Temperature 98 F (units (unknown) date) 07/07/21 12:48 unknown) (unknown) (no (unknown) (unknown) Temperature 98 F (units (unknown) date) unknown) (unknown) (no (unknown) (unknown) This is a (units (unkno wn) date) 26-year-old female unknown) presents to the emergency department complaining of (unknown) (no (unknown) (unknown) This is a (units (unkn own) date) 26-year-old female unknown) who presents to the emergency department (unknown) (no (unknown) (unknown) This is treated (units (unknown) date) with multi unknown) modalities including SSRIs, complementary therapies (unknown) (no (unknown) (unknown) Tan Nguyen (units (unknown) date) MD Jamison unknown) [Physician] - (unknown) (no (unknown) (unknown) Time Seen by (units (u nknown) date) Provider: 07/07/21 unknown) 14:42 (unknown) (no (unknown) (unknown) Total Bilirubin (units (unknown) date) 0.2 (0.2-1.3) unknown) mg/dL (unknown) (no (unknown) (unknown) Total Protein (units ( unknown) date) 7.2 (6.3-8.2) unknown) g/dL (unknown) (no (unknown) (unknown) Tylenol and (units (un known) date) states none of unknown) that was very helpful. Patient endorses lidocaine (unknown) (no (unknown) (unknown) Vital Signs (units (un known) date) unknown) (unknown) (no (unknown) (unknown) Vital signs: (units (u nknown) date) unknown) (unknown) (no (unknown) (unknown) [Embedded Image (units (unknown) date) Not Available] unknown) (unknown) (no (unknown) (unknown) activity, stay (units (unknown) date) hydrated, eat food unknown) with ibuprofen so that you do not get an (unknown) (no (unknown) (unknown) alcohol intake (units (unknown) date) frequency: a few unknown) times a week (unknown) (no (unknown) (unknown) and cooperative (units (unknown) date) unknown) (unknown) (no (unknown) (unknown) another (units (unkno wn) date) prescription of unknown) steroids, muscle relaxers, and morphine tablets without (unknown) (no (unknown) (unknown) any other testing (units (unknown) date) completed. unknown) Patient states that she has had 2 urine test this (unknown) (no (unknown) (unknown) appointment. Let (units (unknown) date) them know you were unknown) seen in the Emergency Department and that we (unknown) (no (unknown) (unknown) asked that you be (units (unknown) date) seen for unknown) follow-up. We will electronically transmit a record (unknown) (no (unknown) (unknown) behavioral (units (unk nown) date) therapy, other unknown) oral medications which may work for you, and there is (unknown) (no (unknown) (unknown) cannabinoids (units (u nknown) date) which will treat unknown) your pain from your brain. I wish you the best, (unknown) (no (unknown) (unknown) chills, (units (unkno wn) date) diaphoresis, unknown) abdominal pain, states that she threw up yesterday a.m. but (unknown) (no (unknown) (unknown) cognitive (units (unkn own) date) dysfunction, and unknown) peripheral neuropathy. These are all symptoms of (unknown) (no (unknown) (unknown) complaining of (units (unknown) date) left-sided neck unknown) pain for the last 3 weeks, peripheral neuropathy (unknown) (no (unknown) (unknown) concerning (units (unk nown) date) symptoms, such as unknown) [fever greater than 101F, chills, worsening pain, (unknown) (no (unknown) (unknown) continue to have (units (unknown) date) symptoms. Please unknown) follow-up with a specialist before changing (unknown) (no (unknown) (unknown) days, and (units (unkno wn) date) oxycodone with unknown) muscle relaxers. She states that it did not help much, (unknown) (no (unknown) (unknown) denies any (units (unk nown) date) diarrhea, rash unknown) isolated pain in 1 area. Patient states that she (unknown) (no (unknown) (unknown) diclofenac sodium (units (unknown) date) 1 % topical gel 2 unknown) g TOPICAL QID #100 g 07/07/21 (unknown) (no (unknown) (unknown) establish care (units (unknown) date) with one of the unknown) [facility] primary care providers. (unknown) (no (unknown) (unknown) fatigue (units (unkno wn) date) unknown) (unknown) (no (unknown) (unknown) feels depressed, (units (unknown) date) she has a unknown) psychiatrist appointment on for July 16, 2021. (unknown) (no (unknown) (unknown) fibromyalgia (units (u nknown) date) which is stemming unknown) some under treated for chemicals your brain. (unknown) (no (unknown) (unknown) from her neck. (units (unknown) date) She went to unknown) [place] emergency, was prescribed steroids for 5 (unknown) (no (unknown) (unknown) gabapentin 300 mg (units (unknown) date) capsule 600 mg PO unknown) TID 14 Days #84 caplet 07/07/21 (unknown) (no (unknown) (unknown) groomed (units (unkno wn) date) unknown) (unknown) (no (unknown) (unknown) hand (units (unkno wn) date) unknown) (unknown) (no (unknown) (unknown) in all of her (units ( unknown) date) extremities, unknown) fatigue, depressed mood, and difficulty completing (unknown) (no (unknown) (unknown) incontinence, (units ( unknown) date) dizziness, vision unknown) changes. (unknown) (no (unknown) (unknown) lidocaine 5 % (units ( unknown) date) topical patch 1 unknown) patch TOPICAL BID PRN #15 ea 07/07/21 (unknown) (no (unknown) (unknown) like exercise, (units (unknown) date) yoga, acupuncture, unknown) talk therapy, and actually the 1st to (unknown) (no (unknown) (unknown) likely (units (unkno wn) date) contributing to unknown) her mild leukocytosis of 13.1. (unknown) (no (unknown) (unknown) medications for (units (unknown) date) this neck pain and unknown) neuropathy without any improvement in her (unknown) (no (unknown) (unknown) medications or (units (unknown) date) stopping them unknown) altogether. Please continue taking the Prozac as (unknown) (no (unknown) (unknown) medications used (units (unknown) date) in combo therapy unknown) are gabapentin and like you are on. Please (unknown) (no (unknown) (unknown) muscle relaxers (units (unknown) date) as necessary for unknown) muscle spasms. Please use heat, light (unknown) (no (unknown) (unknown) muscle tension to (units (unknown) date) palpation, no unknown) rash, no masses no tenderness over C-spine (unknown) (no (unknown) (unknown) no evidence that (units (unknown) date) opioids are unknown) effective treatment of this. Evidence suggests (unknown) (no (unknown) (unknown) no other (units (unkno wn) date) vomiting. States unknown) that she had a negative COVID test at home, she (unknown) (no (unknown) (unknown) none of those (units ( unknown) date) have helped at unknown) all. Patient denies any lower extremity weakness, (unknown) (no (unknown) (unknown) not think it (units (u nknown) date) helped her. unknown) Patient has been using lidocaine patches which she (unknown) (no (unknown) (unknown) of today's note (units (unknown) date) if your PCP is in unknown) our system (unknown) (no (unknown) (unknown) pain started on (units (unknown) date) 06/20/2021 with unknown) neuropathy symptoms down into her fingertips (unknown) (no (unknown) (unknown) pain, and has (units ( unknown) date) tried opiates, unknown) muscle relaxers, lidocaine patches, incident (unknown) (no (unknown) (unknown) patches as being (units (unknown) date) the most helpful. unknown) She states she stopped taking Latuda cold (unknown) (no (unknown) (unknown) persistent (units (unk nown) date) vomiting or other unknown) bothersome symptoms] (unknown) (no (unknown) (unknown) please go to your (units (unknown) date) appointment on June unknown) , follow-up with your primary care (unknown) (no (unknown) (unknown) prescriber. 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 Patient states that she stop taking (unknown) (no (unknown) (unknown) starting (units (unkno wn) date) approximately 2 unknown) weeks ago. Patient states that her left-sided neck (unknown) (no (unknown) (unknown) states are the (units (unknown) date) most helpful, unknown) taking morphine tabs, muscle relaxers, and states (unknown) (no (unknown) (unknown) symptoms. She (units (unknown) date) has been afebrile, unknown) completed 2 courses of steroids, this is (unknown) (no (unknown) (unknown) tenderness with (units (unknown) date) exam, without unknown) guarding or rebound. (unknown) (no (unknown) (unknown) that she has been (units (unknown) date) to would be unknown) emergency department 2 times for this neck pain (unknown) (no (unknown) (unknown) that studies show (units (unknown) date) opiates have unknown) adverse effects on chronic pain syndrome. Please (unknown) (no (unknown) (unknown) turkey 2 months (units (unknown) date) ago, she is on 20 unknown) mg of Prozac daily, has been using all these (unknown) (no (unknown) (unknown) ulcer. I wish (units (unknown) date) you the best with unknown) your follow-up. (unknown) (no (unknown) (unknown) vancomycin (units (unk nown) date) AdvReac Redness unknown) of Verified 07/07/21 12:53 (unknown) (no (unknown) (unknown) weakness (units (unkno wn) date) unknown) (unknown) (no (unknown) (unknown) week for (units (unkno wn) date) and they unknown) were both negative. Patient endorses a headache, (unknown) (no (unknown) (unknown) wheezing, (units (unkn own) date) stridor, or rales. unknown) No retractions or tachypnea. (unknown) (no (unknown) (unknown) you are, take (units ( unknown) date) ibuprofen or unknown) Tylenol with food and water as needed for your pain, Result panel 6 (unknown) (no (unknown) (unknown) (no value) (units (unk nown) date) unknown) (unknown) (no (unknown) (unknown) *Please continue (units (unknown) date) to take your unknown) regular medications as directed. (unknown) (no (unknown) (unknown) Date of Service: (units (unknown) date) 07/07/21 unknown) (unknown) (no (unknown) (unknown) (no value) (units (unk nown) date) unknown) (unknown) (no (unknown) (unknown) 07/07/21 14:12 (units (unknown) date) unknown) (unknown) (no (unknown) (unknown) 1 patch topical (units (unknown) date) BID PRN (Reason: unknown) pain) Qty: 15 0RF (unknown) (no (unknown) (unknown) 2 g topical QID (units (unknown) date) Qty: 100 0RF unknown) (unknown) (no (unknown) (unknown) 600 mg PO TID 14 (units (unknown) date) Days Qty: 84 0RF unknown) (unknown) (no (unknown) (unknown) Allergies (units (unkn own) date) unknown) (unknown) (no (unknown) (unknown) Documented by: (units (unknown) date) ARIAN unknown) (unknown) (no (unknown) (unknown) ED Orders (units (unkn own) date) unknown) (unknown) (no (unknown) (unknown) Emergency Report (units (unknown) date) unknown) (unknown) (no (unknown) (unknown) [facility] (units (unknown) date) [address] [place] [address] unknown) [place] [address] (unknown) (no (unknown) (unknown) Lab Results (units (un known) date) unknown) (unknown) (no (unknown) (unknown) Last Admin: (units (un known) date) 07/07/21 15:36 unknown) Dose: 300 mg (unknown) (no (unknown) (unknown) Last Admin: (units (un known) date) 07/07/21 15:36 unknown) Dose: 975 mg (unknown) (no (unknown) (unknown) Last Admin: (units (un known) date) 07/07/21 15:37 unknown) Dose: 1 each (unknown) (no (unknown) (unknown) Previous Rx's (units ( unknown) date) unknown) (unknown) (no (unknown) (unknown) Rx Instructions: (units (unknown) date) unknown) (unknown) (no (unknown) (unknown) Skin (units (unkno wn) date) unknown) (unknown) (no (unknown) (unknown) Stop: 07/07/21 (units (unknown) date) 15:19 unknown) (unknown) (no (unknown) (unknown) Vital Signs - 8 (units (unknown) date) hr unknown) (unknown) (no (unknown) (unknown) [ ] New (units (unkno wn) date) medication written unknown) as a paper prescription (unknown) (no (unknown) (unknown) [ ] No new (units (unk nown) date) medications given unknown) (unknown) (no (unknown) (unknown) [ x] New (units (unkno wn) date) medication unknown) prescriptions sent to your pharmacy: [ [facility] (unknown) (no (unknown) (unknown) apply to single (units (unknown) date) elbow, wrist or unknown) hand; for hand includes palm/fingers/back of (unknown) (no (unknown) (unknown) leave on most (units ( unknown) date) painful area for unknown) up to 12 hrs (unknown) (no (unknown) (unknown) (no value) (units (unk nown) date) unknown) (unknown) (no (unknown) (unknown) 07/07/21 07/07/21 (units (unknown) date) Range/Units unknown) (unknown) (no (unknown) (unknown) 14:12 14:12 (units (un known) date) unknown) (unknown) (no (unknown) (unknown) diclofenac sodium (units (unknown) date) [Voltaren unknown) Arthritis Pain] 1 % gel (unknown) (no (unknown) (unknown) gabapentin 300 mg (units (unknown) date) capsule unknown) (unknown) (no (unknown) (unknown) lidocaine (units (unkn own) date) [Lidoderm] 5 % unknown) adhesive patch,medicated (unknown) (no (unknown) (unknown) 07/07/21 (units (unkno wn) date) unknown) (unknown) (no (unknown) (unknown) 3 weeks of (units (unk nown) date) left-sided neck unknown) pain, neuropathy, fatigue, multiple locations of (unknown) (no (unknown) (unknown) Acute neck pain, (units (unknown) date) Fatigue unknown) (unknown) (no (unknown) (unknown) Farson] (units (unkno wn) date) unknown) (unknown) (no (unknown) (unknown) Medication (units (unk nown) date) Instructions unknown) Recorded (unknown) (no (unknown) (unknown) Peripheral (units (unk nown) date) neuropathy type: unknown) polyneuropathy, unspecified Qualified Code(s): (unknown) (no (unknown) (unknown) try and stay (units (u nknown) date) active as your unknown) body allows, this will help release Endo (unknown) (no (unknown) (unknown) (Lidoderm) (units (unk nown) date) unknown) (unknown) (no (unknown) (unknown) (Voltaren (units (unkn own) date) Arthritis Pain) unknown) (unknown) (no (unknown) (unknown) *If you do not (units (unknown) date) have a primary unknown) care provider please contact [phone] to (unknown) (no (unknown) (unknown) *Please follow up (units (unknown) date) with your primary unknown) care provider in 2-3 days, call for an (unknown) (no (unknown) (unknown) *Return to (units (unk nown) date) Emergency unknown) Department if you should have any new, worsening or (unknown) (no (unknown) (unknown) *What to do: (units (u nknown) date) unknown) (unknown) (no (unknown) (unknown) *You have been (units (unknown) date) diagnosed with unknown) pain in multiple locations, fatigue, insomnia, (unknown) (no (unknown) (unknown) 07/07/21 14:12 (units (unknown) date) unknown) (unknown) (no (unknown) (unknown) 07/07/21 15:33 (units (unknown) date) unknown) (unknown) (no (unknown) (unknown) 07/07/21 15:43 (units (unknown) date) unknown) (unknown) (no (unknown) (unknown) 12:48 (units (unkno wn) date) unknown) (unknown) (no (unknown) (unknown) 9601 (units (unkno wn) date) unknown) (unknown) (no (unknown) (unknown) ALT 53 H (<35) (units (unknown) date) IU/L unknown) (unknown) (no (unknown) (unknown) AST 26 (14-36) (units (unknown) date) IU/L unknown) (unknown) (no (unknown) (unknown) Acetaminophen (units ( unknown) date) (Acetaminophen 325 unknown) Mg Tablet) 975 mg PO NOW ONE (unknown) (no (unknown) (unknown) Activity (units (unkno wn) date) Restrictions/Addit unknown) ional Instructions: (unknown) (no (unknown) (unknown) Age/Sex: 26 / F (units (unknown) date) unknown) (unknown) (no (unknown) (unknown) Albumin 4.7 (units ( unknown) date) (3.5-5.0) g/dL unknown) (unknown) (no (unknown) (unknown) Albumin/Globulin (units (unknown) date) Ratio 1.9 unknown) (1.0-2.8) (unknown) (no (unknown) (unknown) Alkaline (units (unkno wn) date) Phosphatase 55 unknown) (38-126) U/L (unknown) (no (unknown) (unknown) Allergy/AdvReac (units (unknown) date) Type Severity unknown) Reaction Status Date / Time (unknown) (no (unknown) (unknown) Antibiotics) (units (u nknown) date) unknown) (unknown) (no (unknown) (unknown) BUN 19 H (units (unk nown) date) (7-17) mg/dL unknown) (unknown) (no (unknown) (unknown) BUN/Creatinine (units (unknown) date) Ratio 20.7 unknown) (6-22) (unknown) (no (unknown) (unknown) Baso # (Auto) 0 (units (unknown) date) (0-100) /uL unknown) (unknown) (no (unknown) (unknown) Baso % (Auto) (units ( unknown) date) 0.2 (0-2) % unknown) (unknown) (no (unknown) (unknown) Blood Pressure (units (unknown) date) 143/72 H 07/07/21 unknown) 12:48 (unknown) (no (unknown) (unknown) Blood Pressure (units (unknown) date) 143/72 H unknown) (unknown) (no (unknown) (unknown) C-Reactive (units (unk nown) date) Protein < 0.5 unknown) (<1.0) mg/dL (unknown) (no (unknown) (unknown) CBC Auto Diff (units ( unknown) date) [Complete Blood unknown) Count AUTO DIFF] Stat (unknown) (no (unknown) (unknown) CMP (units (unkno wn) date) [Comprehensive unknown) Metabolic Panel] Stat (unknown) (no (unknown) (unknown) CRP [C-Reactive (units (unknown) date) Protein Quant] unknown) Stat (unknown) (no (unknown) (unknown) CT C-spine (units (unk nown) date) unknown) (unknown) (no (unknown) (unknown) CT cervical spine (units (unknown) date) wo con Stat unknown) (unknown) (no (unknown) (unknown) CT head/brain wo (units (unknown) date) con Stat unknown) (unknown) (no (unknown) (unknown) Calcium 9.2 (units ( unknown) date) (8.4-10.2) mg/dL unknown) (unknown) (no (unknown) (unknown) Carbon Dioxide (units (unknown) date) 32 (22-32) unknown) mmol/L (unknown) (no (unknown) (unknown) Cardio: denies (units (unknown) date) chest pain, unknown) palpitations, edema (unknown) (no (unknown) (unknown) Cardiovascular: (units (unknown) date) regular rate and unknown) rhythm, no peripheral edema, warm extremities (unknown) (no (unknown) (unknown) Chief Complaint: (units (unknown) date) Neck Pain/Injury unknown) (unknown) (no (unknown) (unknown) Chloride 100 (units (unknown) date) (98-107) mmol/L unknown) (unknown) (no (unknown) (unknown) Clinical (units (unkno wn) date) Impression: unknown) (unknown) (no (unknown) (unknown) Course (units (unkno wn) date) unknown) (unknown) (no (unknown) (unknown) Creatinine 0.92 (units (unknown) date) (0.52-1.04) unknown) mg/dL (unknown) (no (unknown) (unknown) : 1995 (units (unknown) date) Acct:[id number] unknown) (unknown) (no (unknown) (unknown) Departure (units (unkn own) date) unknown) (unknown) (no (unknown) (unknown) Discharge Plan (units (unknown) date) unknown) (unknown) (no (unknown) (unknown) Discontinued (units (u nknown) date) Medications unknown) (unknown) (no (unknown) (unknown) ER Physician: (units ( unknown) date) GabrielawLatonya unknown) [employer] (unknown) (no (unknown) (unknown) ESR 2 (0-20) (units (unknown) date) MM/HR unknown) (unknown) (no (unknown) (unknown) Eos # (Auto) 0 (units (unknown) date) (0-450) /uL unknown) (unknown) (no (unknown) (unknown) Eos % (Auto) 0.1 (units (unknown) date) L (2-4) % unknown) (unknown) (no (unknown) (unknown) Erythrocyte (units (un known) date) Sedimentation Rate unknown) Stat (unknown) (no (unknown) (unknown) Estimated GFR > (units (unknown) date) 60 (>60) mL/min unknown) (unknown) (no (unknown) (unknown) Exam (units (unkno wn) date) unknown) (unknown) (no (unknown) (unknown) Exam Narrative: (units (unknown) date) unknown) (unknown) (no (unknown) (unknown) Eyes: denies (units (u nknown) date) visual changes, unknown) eye pain (unknown) (no (unknown) (unknown) Eyes: pupils (units (u nknown) date) equal round and unknown) reactive, EOMI, conjunctiva normal (unknown) (no (unknown) (unknown) G62.9 - (units (unkno wn) date) Polyneuropathy, unknown) unspecified (unknown) (no (unknown) (unknown) GI: abdomen soft, (units (unknown) date) nontender to unknown) palpation, nondistended, no masses, no exquisite (unknown) (no (unknown) (unknown) GI: denies (units (unk nown) date) abdominal pain, unknown) nausea, vomiting, or diarrhea (unknown) (no (unknown) (unknown) : denies (units (unk nown) date) dysuria, unknown) hematuria, urinary retention, frequency or incontinence (unknown) (no (unknown) (unknown) Gabapentin (units (unk nown) date) (Gabapentin 300 Mg unknown) Capsule) 300 mg PO NOW ONE (unknown) (no (unknown) (unknown) General (units (unkno wn) date) unknown) (unknown) (no (unknown) (unknown) General: (units (unkno wn) date) cooperative, unknown) comfortable, in no acute distress, well developed and well (unknown) (no (unknown) (unknown) General: denies (units (unknown) date) fever, chills, unknown) malaise, sweats, endorses daily and crippling (unknown) (no (unknown) (unknown) GenericComposite[ (units (unknown) date) Plt Count 290 unknown) (150-400) X10^3/uL ] (unknown) (no (unknown) (unknown) GenericComposite[ (units (unknown) date) RBC 4.27 unknown) (4.0-5.2) X10^6/uL ] (unknown) (no (unknown) (unknown) GenericComposite[ (units (unknown) date) WBC 13.1 H unknown) (4.5-11.0) X10^3/uL ] (unknown) (no (unknown) (unknown) Globulin 2.5 (units (unknown) date) (1.7-4.1) g/dL unknown) (unknown) (no (unknown) (unknown) Glucose 142 H (units (unknown) date) (70-100) mg/dL unknown) (unknown) (no (unknown) (unknown) HPI - Neck (units (unk nown) date) Pain/Injury unknown) (unknown) (no (unknown) (unknown) HPI Narrative: (units (unknown) date) unknown) (unknown) (no (unknown) (unknown) Hct 40.4 (units (unkn own) date) (36-46) % unknown) (unknown) (no (unknown) (unknown) Head/Neck: denies (units (unknown) date) headache, neck unknown) pain, dizziness (unknown) (no (unknown) (unknown) Head: atraumatic, (units (unknown) date) symmetrical facial unknown) expressions (unknown) (no (unknown) (unknown) Hgb 13.6 (units (unkn own) date) (12.0-16.0) g/dL unknown) (unknown) (no (unknown) (unknown) History of (units (unk nown) date) Present Illness unknown) (unknown) (no (unknown) (unknown) Independently (units ( unknown) date) reviewed vitals unknown) signs and nursing notes. (unknown) (no (unknown) (unknown) Initial Vital (units ( unknown) date) Signs unknown) (unknown) (no (unknown) (unknown) Initial Vital (units ( unknown) date) Signs: unknown) (unknown) (no (unknown) (unknown) Instructions: (units ( unknown) date) Fibromyalgia unknown) (Alternative Therapy), Complex Regional Pain (unknown) (no (unknown) (unknown) Lab Data (units (unkno wn) date) unknown) (unknown) (no (unknown) (unknown) Labs: (units (unkno wn) date) unknown) (unknown) (no (unknown) (unknown) Latuda 2 months (units (unknown) date) ago cold turkey unknown) because she ran out and did not have a (unknown) (no (unknown) (unknown) Lidocaine (units (unkn own) date) (Lidocaine Patch 1 unknown) Each Adh..Patch) 1 each TOP NOW ONE (unknown) (no (unknown) (unknown) Lymph # (Auto) (units (unknown) date) 800 L unknown) (4374-1470) /uL (unknown) (no (unknown) (unknown) Lymph % (Auto) (units (unknown) date) 6.5 L (25-40) % unknown) (unknown) (no (unknown) (unknown) MCH 31.9 (units (unkn own) date) (26-34) PG unknown) (unknown) (no (unknown) (unknown) MCHC 33.7 (units (unk nown) date) (30-36) % unknown) (unknown) (no (unknown) (unknown) MCV 94.6 (units (unkn own) date) (80-100) fL unknown) (unknown) (no (unknown) (unknown) MDM - Neck (units (unk nown) date) Pain/Injury unknown) (unknown) (no (unknown) (unknown) MDM Narrative (units ( unknown) date) unknown) (unknown) (no (unknown) (unknown) MSK: denies joint (units (unknown) date) pain, muscle unknown) weakness (unknown) (no (unknown) (unknown) MSK: moves all (units ( unknown) date) extremities, unknown) ambulatory w/steady gait, neurovascularly intact, no (unknown) (no (unknown) (unknown) Medical decision (units (unknown) date) making narrative: unknown) (unknown) (no (unknown) (unknown) Mode of arrival: (units (unknown) date) Ambulatory unknown) (unknown) (no (unknown) (unknown) Appling # (Auto) (units ( unknown) date) 200 (0-900) /uL unknown) (unknown) (no (unknown) (unknown) [place] % (Auto) (units ( unknown) date) 1.7 L (3-14) % unknown) (unknown) (no (unknown) (unknown) Mouth/Throat: (units ( unknown) date) uvula midline, unknown) moist mucus membranes (unknown) (no (unknown) (unknown) Narrative (units (unkn own) date) unknown) (unknown) (no (unknown) (unknown) Narrative: (units (unk nown) date) unknown) (unknown) (no (unknown) (unknown) Neck: supple, (units ( unknown) date) atraumatic, unknown) without lymphadenopathy. Patient has left trapezius (unknown) (no (unknown) (unknown) Neuro: denies (units ( unknown) date) numbness, tingling unknown) (unknown) (no (unknown) (unknown) Neuro: normal (units ( unknown) date) speech and unknown) cognition, A+O x3, normal tone (unknown) (no (unknown) (unknown) Neut # (Auto) (units ( unknown) date) 21673 H unknown) (7555-7849) /uL (unknown) (no (unknown) (unknown) Neut % (Auto) (units ( unknown) date) 91.5 H (50-75) unknown) % (unknown) (no (unknown) (unknown) New (units (unkno wn) date) unknown) (unknown) (no (unknown) (unknown) Nose: nares (units (un known) date) patent, no unknown) rhinorrhea (unknown) (no (unknown) (unknown) Ordered: (units (unkno wn) date) unknown) (unknown) (no (unknown) (unknown) Orders (units (unkno wn) date) unknown) (unknown) (no (unknown) (unknown) Patient (units (unkno wn) date) Disposition: Home unknown) (unknown) (no (unknown) (unknown) Patient History (units (unknown) date) unknown) (unknown) (no (unknown) (unknown) Patient states (units (unknown) date) she does not want unknown) to start taking Latuda again because she did (unknown) (no (unknown) (unknown) Patient: (units (unkno wn) date) brittni Lane unknown) MR#: [id number] (unknown) (no (unknown) (unknown) Penicillins (units (un known) date) Allergy Verified unknown) 07/07/21 12:53 (unknown) (no (unknown) (unknown) Peripheral (units (unk nown) date) neuropathy unknown) (unknown) (no (unknown) (unknown) Potassium 4.6 (units (unknown) date) (3.4-5.1) mmol/L unknown) (unknown) (no (unknown) (unknown) Prescriptions: (units (unknown) date) unknown) (unknown) (no (unknown) (unknown) Psych: mental (units ( unknown) date) status is grossly unknown) normal, congruent mood, normal affect, pleasant (unknown) (no (unknown) (unknown) Pulse Oximetry (units (unknown) date) 98 07/07/21 unknown) 12:48 (unknown) (no (unknown) (unknown) Pulse Oximetry 98 (units (unknown) date) unknown) (unknown) (no (unknown) (unknown) Pulse Rate 65 (units (unknown) date) 07/07/21 12:48 unknown) (unknown) (no (unknown) (unknown) Pulse Rate 65 (units ( unknown) date) unknown) (unknown) (no (unknown) (unknown) Qualifiers: (units (un known) date) unknown) (unknown) (no (unknown) (unknown) RDW 13.5 (units (unkn own) date) (11.6-14.8) % unknown) (unknown) (no (unknown) (unknown) Referrals: (units (unk nown) date) unknown) (unknown) (no (unknown) (unknown) Related Data (units (u nknown) date) unknown) (unknown) (no (unknown) (unknown) Respiratory Rate (units (unknown) date) 16 07/07/21 unknown) 12:48 (unknown) (no (unknown) (unknown) Respiratory Rate (units (unknown) date) 16 unknown) (unknown) (no (unknown) (unknown) Respiratory: (units (u nknown) date) denies dyspnea, unknown) cough, orthopnea (unknown) (no (unknown) (unknown) Respiratory: (units (u nknown) date) normal effort, unknown) able to speak in complete sentences, no audible (unknown) (no (unknown) (unknown) Result diagrams: (units (unknown) date) unknown) (unknown) (no (unknown) (unknown) Review of Systems (units (unknown) date) unknown) (unknown) (no (unknown) (unknown) Signed By: (units (unk nown) date) unknown) (unknown) (no (unknown) (unknown) Skin: brisk (units (un known) date) capillary refill, unknown) no rash, no erythema (unknown) (no (unknown) (unknown) Skin: denies (units (u nknown) date) rash, itching, unknown) skin lesions or other (unknown) (no (unknown) (unknown) Smoking Status: (units (unknown) date) Current every day unknown) smoker (unknown) (no (unknown) (unknown) Smoking Status: (units (unknown) date) Current every day unknown) smoker (unknown) (no (unknown) (unknown) Social History (units (unknown) date) (Reviewed 07/07/21 unknown) @ 15:40 by TOMY Horton) (unknown) (no (unknown) (unknown) Sodium 138 (units (u nknown) date) (137-145) mmol/L unknown) (unknown) (no (unknown) (unknown) Stated Complaint: (units (unknown) date) NECK PAIN TINGLING unknown) OF HAND AND ARMS TIRED (unknown) (no (unknown) (unknown) Substance Use (units ( unknown) date) Type: does not use unknown) (unknown) (no (unknown) (unknown) Sulfa (units (unkno wn) date) (Sulfonamide unknown) Allergy Verified 07/07/21 12:53 (unknown) (no (unknown) (unknown) Syndrome, DI for (units (unknown) date) Neck Pain unknown) (unknown) (no (unknown) (unknown) Temperature 98 F (units (unknown) date) 07/07/21 12:48 unknown) (unknown) (no (unknown) (unknown) Temperature 98 F (units (unknown) date) unknown) (unknown) (no (unknown) (unknown) This is a (units (unkno wn) date) 26-year-old female unknown) presents to the emergency department complaining of (unknown) (no (unknown) (unknown) This is a (units (unkn own) date) 26-year-old female unknown) who presents to the emergency department (unknown) (no (unknown) (unknown) This is treated (units (unknown) date) with multi unknown) modalities including SSRIs, complementary therapies (unknown) (no (unknown) (unknown) Tan Nguyen (units (unknown) date) MD Jamison unknown) [Physician] - (unknown) (no (unknown) (unknown) Time Seen by (units (u nknown) date) Provider: 07/07/21 unknown) 14:42 (unknown) (no (unknown) (unknown) Total Bilirubin (units (unknown) date) 0.2 (0.2-1.3) unknown) mg/dL (unknown) (no (unknown) (unknown) Total Protein (units ( unknown) date) 7.2 (6.3-8.2) unknown) g/dL (unknown) (no (unknown) (unknown) Tylenol and (units (un known) date) states none of unknown) that was very helpful. Patient endorses lidocaine (unknown) (no (unknown) (unknown) Tylenol, (units (unkno wn) date) gabapentin, and a unknown) lidocaine patch in the emergency department she (unknown) (no (unknown) (unknown) UA Complete (units (un known) date) [Urinalysis and unknown) Microscopic] Stat (unknown) (no (unknown) (unknown) Vital Signs (units (un known) date) unknown) (unknown) (no (unknown) (unknown) Vital signs: (units (u nknown) date) unknown) (unknown) (no (unknown) (unknown) [Embedded Image (units (unknown) date) Not Available] unknown) (unknown) (no (unknown) (unknown) activity, stay (units (unknown) date) hydrated, eat food unknown) with ibuprofen so that you do not get an (unknown) (no (unknown) (unknown) alcohol intake (units (unknown) date) frequency: a few unknown) times a week (unknown) (no (unknown) (unknown) already has (units (un known) date) opiates and muscle unknown) relaxers at home but when she was offered (unknown) (no (unknown) (unknown) and cooperative (units (unknown) date) unknown) (unknown) (no (unknown) (unknown) another (units (unkno wn) date) prescription of unknown) steroids, muscle relaxers, and morphine tablets without (unknown) (no (unknown) (unknown) any other testing (units (unknown) date) completed. unknown) Patient states that she has had 2 urine test this (unknown) (no (unknown) (unknown) appointment. Let (units (unknown) date) them know you were unknown) seen in the Emergency Department and that we (unknown) (no (unknown) (unknown) asked that you be (units (unknown) date) seen for unknown) follow-up. We will electronically transmit a record (unknown) (no (unknown) (unknown) behavioral (units (unk nown) date) therapy, other unknown) oral medications which may work for you, and there is (unknown) (no (unknown) (unknown) brain/head/C-spin (units (unknown) date) e. CT head unknown) (unknown) (no (unknown) (unknown) cannabinoids (units (u nknown) date) which will treat unknown) your pain from your brain. I wish you the best, (unknown) (no (unknown) (unknown) chills, (units (unkno wn) date) diaphoresis, unknown) abdominal pain, states that she threw up yesterday a.m. but (unknown) (no (unknown) (unknown) cognitive (units (unkn own) date) dysfunction, and unknown) peripheral neuropathy. These are all symptoms of (unknown) (no (unknown) (unknown) complaining of (units (unknown) date) left-sided neck unknown) pain for the last 3 weeks, peripheral neuropathy (unknown) (no (unknown) (unknown) concerning (units (unk nown) date) symptoms, such as unknown) [fever greater than 101F, chills, worsening pain, (unknown) (no (unknown) (unknown) continue to have (units (unknown) date) symptoms. Please unknown) follow-up with a specialist before changing (unknown) (no (unknown) (unknown) days, and (units (unkno wn) date) oxycodone with unknown) muscle relaxers. She states that it did not help much, (unknown) (no (unknown) (unknown) declined and (units (u nknown) date) states that we are unknown) not doing anything for her. Or there was a (unknown) (no (unknown) (unknown) denies any (units (unk nown) date) diarrhea, rash unknown) isolated pain in 1 area. Patient states that she (unknown) (no (unknown) (unknown) diclofenac sodium (units (unknown) date) 1 % topical gel 2 unknown) g TOPICAL QID #100 g 07/07/21 (unknown) (no (unknown) (unknown) elevated, patient (units (unknown) date) states that unknown) lidocaine patches were the most helpful in she (unknown) (no (unknown) (unknown) establish care (units (unknown) date) with one of the unknown) [facility] primary care providers. (unknown) (no (unknown) (unknown) fatigue (units (unkno wn) date) unknown) (unknown) (no (unknown) (unknown) feels depressed, (units (unknown) date) she has a unknown) psychiatrist appointment on for July 16, 2021. (unknown) (no (unknown) (unknown) fibromyalgia (units (u nknown) date) symptoms. Opted unknown) to rule out tumor or fracture with a CT (unknown) (no (unknown) (unknown) fibromyalgia (units (u nknown) date) which is stemming unknown) some under treated for chemicals your brain. (unknown) (no (unknown) (unknown) from her neck. (units (unknown) date) She went to unknown) [place] emergency, was prescribed steroids for 5 (unknown) (no (unknown) (unknown) gabapentin 300 mg (units (unknown) date) capsule 600 mg PO unknown) TID 14 Days #84 caplet 07/07/21 (unknown) (no (unknown) (unknown) groomed (units (unkno wn) date) unknown) (unknown) (no (unknown) (unknown) hand (units (unkno wn) date) unknown) (unknown) (no (unknown) (unknown) in all of her (units ( unknown) date) extremities, unknown) fatigue, depressed mood, and difficulty completing (unknown) (no (unknown) (unknown) incontinence, (units ( unknown) date) dizziness, vision unknown) changes. (unknown) (no (unknown) (unknown) lidocaine 5 % (units ( unknown) date) topical patch 1 unknown) patch TOPICAL BID PRN #15 ea 07/07/21 (unknown) (no (unknown) (unknown) like exercise, (units (unknown) date) yoga, acupuncture, unknown) talk therapy, and actually the 1st to (unknown) (no (unknown) (unknown) likely (units (unkno wn) date) contributing to unknown) her mild leukocytosis of 13.1. CRP and ESR were not (unknown) (no (unknown) (unknown) medications for (units (unknown) date) this neck pain and unknown) neuropathy without any improvement in her (unknown) (no (unknown) (unknown) medications or (units (unknown) date) stopping them unknown) altogether. Please continue taking the Prozac as (unknown) (no (unknown) (unknown) medications used (units (unknown) date) in combo therapy unknown) are gabapentin and like you are on. Please (unknown) (no (unknown) (unknown) muscle relaxers (units (unknown) date) as necessary for unknown) muscle spasms. Please use heat, light (unknown) (no (unknown) (unknown) muscle tension to (units (unknown) date) palpation, no unknown) rash, no masses no tenderness over C-spine (unknown) (no (unknown) (unknown) mutual decision (units (unknown) date) making between unknown) patient and myself to start her on gabapentin (unknown) (no (unknown) (unknown) no evidence that (units (unknown) date) opioids are unknown) effective treatment of this. Evidence suggests (unknown) (no (unknown) (unknown) no other (units (unkno wn) date) vomiting. States unknown) that she had a negative COVID test at home, she (unknown) (no (unknown) (unknown) none of those (units ( unknown) date) have helped at unknown) all. Patient denies any lower extremity weakness, (unknown) (no (unknown) (unknown) not think it (units (u nknown) date) helped her. unknown) Patient has been using lidocaine patches which she (unknown) (no (unknown) (unknown) of today's note (units (unknown) date) if your PCP is in unknown) our system (unknown) (no (unknown) (unknown) pain started on (units (unknown) date) 06/20/2021 with unknown) neuropathy symptoms down into her fingertips (unknown) (no (unknown) (unknown) pain, and has (units ( unknown) date) tried opiates, unknown) muscle relaxers, lidocaine patches, incident (unknown) (no (unknown) (unknown) patches as being (units (unknown) date) the most helpful. unknown) She states she stopped taking Latuda cold (unknown) (no (unknown) (unknown) persistent (units (unk nown) date) vomiting or other unknown) bothersome symptoms] (unknown) (no (unknown) (unknown) please go to your (units (unknown) date) appointment on June) , follow-up with your primary care (unknown) (no (unknown) (unknown) prescriber. 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 Patient states that she stop taking (unknown) (no (unknown) (unknown) starting (units (unkno wn) date) approximately 2 unknown) weeks ago. Patient states that her left-sided neck (unknown) (no (unknown) (unknown) states are the (units (unknown) date) most helpful, unknown) taking morphine tabs, muscle relaxers, and states (unknown) (no (unknown) (unknown) symptoms. She (units (unknown) date) has been afebrile, unknown) completed 2 courses of steroids, this is (unknown) (no (unknown) (unknown) tenderness with (units (unknown) date) exam, without unknown) guarding or rebound. (unknown) (no (unknown) (unknown) that she has been (units (unknown) date) to would be unknown) emergency department 2 times for this neck pain (unknown) (no (unknown) (unknown) that studies show (units (unknown) date) opiates have unknown) adverse effects on chronic pain syndrome. Please (unknown) (no (unknown) (unknown) turkey 2 months (units (unknown) date) ago, she is on 20 unknown) mg of Prozac daily, has been using all these (unknown) (no (unknown) (unknown) ulcer. I wish (units (unknown) date) you the best with unknown) your follow-up. (unknown) (no (unknown) (unknown) until she sees (units (unknown) date) her psychiatrist unknown) in 9 days to help treat her for her likely (unknown) (no (unknown) (unknown) vancomycin (units (unk nown) date) AdvReac Redness unknown) of Verified 07/07/21 12:53 (unknown) (no (unknown) (unknown) weakness (units (unkno wn) date) unknown) (unknown) (no (unknown) (unknown) week for (units (unkno wn) date) and they unknown) were both negative. Patient endorses a headache, (unknown) (no (unknown) (unknown) wheezing, (units (unkn own) date) stridor, or rales. unknown) No retractions or tachypnea. (unknown) (no (unknown) (unknown) you are, take (units ( unknown) date) ibuprofen or unknown) Tylenol with food and water as needed for your pain, Result panel 7 (unknown) (no (unknown) (unknown) (no value) (units (unk nown) date) unknown) (unknown) (no (unknown) (unknown) *Please continue (units (unknown) date) to take your unknown) regular medications as directed. (unknown) (no (unknown) (unknown) Date of Service: (units (unknown) date) 07/07/21 unknown) (unknown) (no (unknown) (unknown) (no value) (units (unk nown) date) unknown) (unknown) (no (unknown) (unknown) 07/07/21 14:12 (units (unknown) date) unknown) (unknown) (no (unknown) (unknown) 1 patch topical (units (unknown) date) BID PRN (Reason: unknown) pain) Qty: 15 0RF (unknown) (no (unknown) (unknown) 2 g topical QID (units (unknown) date) Qty: 100 0RF unknown) (unknown) (no (unknown) (unknown) 600 mg PO TID 14 (units (unknown) date) Days Qty: 84 0RF unknown) (unknown) (no (unknown) (unknown) Allergies (units (unkn own) date) unknown) (unknown) (no (unknown) (unknown) Documented by: (units (unknown) date) ARIAN unknown) (unknown) (no (unknown) (unknown) ED Orders (units (unkn own) date) unknown) (unknown) (no (unknown) (unknown) Emergency Report (units (unknown) date) unknown) (unknown) (no (unknown) (unknown) [facility] (units (unknown) date) [address] [place] [address] unknown) [place] [address] (unknown) (no (unknown) (unknown) Lab Results (units (un known) date) unknown) (unknown) (no (unknown) (unknown) Last Admin: (units (un known) date) 07/07/21 15:36 unknown) Dose: 300 mg (unknown) (no (unknown) (unknown) Last Admin: (units (un known) date) 07/07/21 15:36 unknown) Dose: 975 mg (unknown) (no (unknown) (unknown) Last Admin: (units (un known) date) 07/07/21 15:37 unknown) Dose: 1 each (unknown) (no (unknown) (unknown) Previous Rx's (units ( unknown) date) unknown) (unknown) (no (unknown) (unknown) Rx Instructions: (units (unknown) date) unknown) (unknown) (no (unknown) (unknown) Skin (units (unkno wn) date) unknown) (unknown) (no (unknown) (unknown) Stop: 07/07/21 (units (unknown) date) 15:19 unknown) (unknown) (no (unknown) (unknown) Vital Signs - 8 hr (units (unknown) date) unknown) (unknown) (no (unknown) (unknown) [ ] New medication (units (unknown) date) written as a paper unknown) prescription (unknown) (no (unknown) (unknown) [ ] No new (units (unk nown) date) medications given unknown) (unknown) (no (unknown) (unknown) [ x] New (units (unkno wn) date) medication unknown) prescriptions sent to your pharmacy: [ [facility] (unknown) (no (unknown) (unknown) apply to single (units (unknown) date) elbow, wrist or unknown) hand; for hand includes palm/fingers/back of (unknown) (no (unknown) (unknown) leave on most (units ( unknown) date) painful area for up unknown) to 12 hrs (unknown) (no (unknown) (unknown) (no value) (units (unk nown) date) unknown) (unknown) (no (unknown) (unknown) 07/07/21 07/07/21 (units (unknown) date) Range/Units unknown) (unknown) (no (unknown) (unknown) 14:12 14:12 (units (un known) date) unknown) (unknown) (no (unknown) (unknown) diclofenac sodium (units (unknown) date) [Voltaren Arthritis unknown) Pain] 1 % gel (unknown) (no (unknown) (unknown) gabapentin 300 mg (units (unknown) date) capsule unknown) (unknown) (no (unknown) (unknown) lidocaine (units (unkn own) date) [Lidoderm] 5 % unknown) adhesive patch,medicated (unknown) (no (unknown) (unknown) 07/07/21 (units (unkno wn) date) unknown) (unknown) (no (unknown) (unknown) 3 weeks of (units (unk nown) date) left-sided neck unknown) pain, neuropathy, fatigue, multiple locations of (unknown) (no (unknown) (unknown) Acute neck pain, (units (unknown) date) Fatigue unknown) (unknown) (no (unknown) (unknown) Farson] (units (unkno wn) date) unknown) (unknown) (no (unknown) (unknown) Medication (units (unk nown) date) Instructions unknown) Recorded (unknown) (no (unknown) (unknown) Peripheral (units (unk nown) date) neuropathy type: unknown) polyneuropathy, unspecified Qualified Code(s): (unknown) (no (unknown) (unknown) acute intracranial (units (unknown) date) abnormality, your unknown) CT of your cervical spine shows loss of (unknown) (no (unknown) (unknown) continue to have (units (unknown) date) symptoms. Please unknown) follow-up with a specialist before changing (unknown) (no (unknown) (unknown) shows loss of (units ( unknown) date) cervical lordosis unknown) without any stenosis or acute abnormality. UA (unknown) (no (unknown) (unknown) (Lidoderm) (units (unk nown) date) unknown) (unknown) (no (unknown) (unknown) (Voltaren (units (unkn own) date) Arthritis Pain) unknown) (unknown) (no (unknown) (unknown) *If you do not (units (unknown) date) have a primary care unknown) provider please contact [phone] to (unknown) (no (unknown) (unknown) *Please follow up (units (unknown) date) with your primary unknown) care provider in 2-3 days, call for an (unknown) (no (unknown) (unknown) *Return to (units (unk nown) date) Emergency unknown) Department if you should have any new, worsening or (unknown) (no (unknown) (unknown) *What to do: (units (u nknown) date) unknown) (unknown) (no (unknown) (unknown) *You have been (units (unknown) date) diagnosed with pain unknown) in multiple locations, fatigue, insomnia, (unknown) (no (unknown) (unknown) 07/07/21 14:12 (units (unknown) date) unknown) (unknown) (no (unknown) (unknown) 07/07/21 15:33 (units (unknown) date) unknown) (unknown) (no (unknown) (unknown) 07/07/21 15:43 (units (unknown) date) unknown) (unknown) (no (unknown) (unknown) 12:48 (units (unkno wn) date) unknown) (unknown) (no (unknown) (unknown) 9601 (units (unkno wn) date) unknown) (unknown) (no (unknown) (unknown) ALT 53 H (<35) (units (unknown) date) IU/L unknown) (unknown) (no (unknown) (unknown) AST 26 (14-36) (units (unknown) date) IU/L unknown) (unknown) (no (unknown) (unknown) Acetaminophen (units ( unknown) date) (Acetaminophen 325 unknown) Mg Tablet) 975 mg PO NOW ONE (unknown) (no (unknown) (unknown) Activity (units (unkno wn) date) Restrictions/Additi unknown) onal Instructions: (unknown) (no (unknown) (unknown) Age/Sex: 26 / F (units (unknown) date) unknown) (unknown) (no (unknown) (unknown) Albumin 4.7 (units ( unknown) date) (3.5-5.0) g/dL unknown) (unknown) (no (unknown) (unknown) Albumin/Globulin (units (unknown) date) Ratio 1.9 unknown) (1.0-2.8) (unknown) (no (unknown) (unknown) Alkaline (units (unkno wn) date) Phosphatase 55 unknown) (38-126) U/L (unknown) (no (unknown) (unknown) Allergy/AdvReac (units (unknown) date) Type Severity unknown) Reaction Status Date / Time (unknown) (no (unknown) (unknown) Antibiotics) (units (u nknown) date) unknown) (unknown) (no (unknown) (unknown) BUN 19 H (7-17) (units (unknown) date) mg/dL unknown) (unknown) (no (unknown) (unknown) BUN/Creatinine (units (unknown) date) Ratio 20.7 unknown) (6-22) (unknown) (no (unknown) (unknown) Baso # (Auto) 0 (units (unknown) date) (0-100) /uL unknown) (unknown) (no (unknown) (unknown) Baso % (Auto) 0.2 (units (unknown) date) (0-2) % unknown) (unknown) (no (unknown) (unknown) Blood Pressure (units (unknown) date) 143/72 H 07/07/21 unknown) 12:48 (unknown) (no (unknown) (unknown) Blood Pressure (units (unknown) date) 143/72 H unknown) (unknown) (no (unknown) (unknown) C-Reactive Protein (units (unknown) date) < 0.5 (<1.0) unknown) mg/dL (unknown) (no (unknown) (unknown) CBC Auto Diff (units ( unknown) date) [Complete Blood unknown) Count AUTO DIFF] Stat (unknown) (no (unknown) (unknown) CMP [Comprehensive (units (unknown) date) Metabolic Panel] unknown) Stat (unknown) (no (unknown) (unknown) CRP [C-Reactive (units (unknown) date) Protein Quant] Stat unknown) (unknown) (no (unknown) (unknown) CT cervical spine (units (unknown) date) wo con Stat unknown) (unknown) (no (unknown) (unknown) CT head/brain wo (units (unknown) date) con Stat unknown) (unknown) (no (unknown) (unknown) Calcium 9.2 (units ( unknown) date) (8.4-10.2) mg/dL unknown) (unknown) (no (unknown) (unknown) Carbon Dioxide (units (unknown) date) 32 (22-32) mmol/L unknown) (unknown) (no (unknown) (unknown) Cardio: denies (units (unknown) date) chest pain, unknown) palpitations, edema (unknown) (no (unknown) (unknown) Cardiovascular: (units (unknown) date) regular rate and unknown) rhythm, no peripheral edema, warm extremities (unknown) (no (unknown) (unknown) Chief Complaint: (units (unknown) date) Neck Pain/Injury unknown) (unknown) (no (unknown) (unknown) Chloride 100 (units (unknown) date) (98-107) mmol/L unknown) (unknown) (no (unknown) (unknown) Clinical (units (unkno wn) date) Impression: unknown) (unknown) (no (unknown) (unknown) Course (units (unkno wn) date) unknown) (unknown) (no (unknown) (unknown) Creatinine 0.92 (units (unknown) date) (0.52-1.04) mg/dL unknown) (unknown) (no (unknown) (unknown) : 1995 (units (unknown) date) Acct:[id number] unknown) (unknown) (no (unknown) (unknown) Departure (units (unkn own) date) unknown) (unknown) (no (unknown) (unknown) Discharge Plan (units (unknown) date) unknown) (unknown) (no (unknown) (unknown) Discontinued (units (u nknown) date) Medications unknown) (unknown) (no (unknown) (unknown) ER Physician: (units ( unknown) date) Latonya Mishra unknown) [employer] (unknown) (no (unknown) (unknown) ESR 2 (0-20) (units (unknown) date) MM/HR unknown) (unknown) (no (unknown) (unknown) Endocannabinoids (units (unknown) date) which will treat unknown) your pain from your brain. I wish you the (unknown) (no (unknown) (unknown) Eos # (Auto) 0 (units (unknown) date) (0-450) /uL unknown) (unknown) (no (unknown) (unknown) Eos % (Auto) 0.1 (units (unknown) date) L (2-4) % unknown) (unknown) (no (unknown) (unknown) Erythrocyte (units (un known) date) Sedimentation Rate unknown) Stat (unknown) (no (unknown) (unknown) Estimated GFR > (units (unknown) date) 60 (>60) mL/min unknown) (unknown) (no (unknown) (unknown) Evidence suggests (units (unknown) date) that opiates have unknown) adverse effects on chronic pain syndromes. (unknown) (no (unknown) (unknown) Exam (units (unkno wn) date) unknown) (unknown) (no (unknown) (unknown) Exam Narrative: (units (unknown) date) unknown) (unknown) (no (unknown) (unknown) Eyes: denies (units (u nknown) date) visual changes, eye unknown) pain (unknown) (no (unknown) (unknown) Eyes: pupils equal (units (unknown) date) round and reactive, unknown) EOMI, conjunctiva normal (unknown) (no (unknown) (unknown) G62.9 - (units (unkno wn) date) Polyneuropathy, unknown) unspecified (unknown) (no (unknown) (unknown) GI: abdomen soft, (units (unknown) date) nontender to unknown) palpation, nondistended, no masses, no exquisite (unknown) (no (unknown) (unknown) GI: denies (units (unk n) date) abdominal pain, unknown) nausea, vomiting, or diarrhea (unknown) (no (unknown) (unknown) : denies (units (unk n) date) dysuria, hematuria, unknown) urinary retention, frequency or incontinence (unknown) (no (unknown) (unknown) Gabapentin (units () date) (Gabapentin 300 Mg unknown) Capsule) 300 mg PO NOW ONE (unknown) (no (unknown) (unknown) General (units (unkno wn) date) unknown) (unknown) (no (unknown) (unknown) General: (units (o wn) date) cooperative, unknown) comfortable, in no acute distress, well developed and well (unknown) (no (unknown) (unknown) General: denies (units (unknown) date) fever, chills, unknown) malaise, sweats, endorses daily and crippling (unknown) (no (unknown) (unknown) GenericComposite[P (units (unknown) date) lt Count 290 unknown) (150-400) X10^3/uL ] (unknown) (no (unknown) (unknown) GenericComposite[R (units (unknown) date) BC 4.27 unknown) (4.0-5.2) X10^6/uL ] (unknown) (no (unknown) (unknown) GenericComposite[W (units (unknown) date) BC 13.1 H unknown) (4.5-11.0) X10^3/uL ] (unknown) (no (unknown) (unknown) Globulin 2.5 (units (unknown) date) (1.7-4.1) g/dL unknown) (unknown) (no (unknown) (unknown) Glucose 142 H (units (unknown) date) (70-100) mg/dL unknown) (unknown) (no (unknown) (unknown) HPI - Neck (units (unk nown) date) Pain/Injury unknown) (unknown) (no (unknown) (unknown) HPI Narrative: (units (unknown) date) unknown) (unknown) (no (unknown) (unknown) Hct 40.4 (units (unkn own) date) (36-46) % unknown) (unknown) (no (unknown) (unknown) Head/Neck: denies (units (unknown) date) headache, neck unknown) pain, dizziness (unknown) (no (unknown) (unknown) Head: atraumatic, (units (unknown) date) symmetrical facial unknown) expressions (unknown) (no (unknown) (unknown) Hgb 13.6 (units (unkn own) date) (12.0-16.0) g/dL unknown) (unknown) (no (unknown) (unknown) History of Present (units (unknown) date) Illness unknown) (unknown) (no (unknown) (unknown) Independently (units ( unknown) date) reviewed vitals unknown) signs and nursing notes. (unknown) (no (unknown) (unknown) Initial Vital (units ( unknown) date) Signs unknown) (unknown) (no (unknown) (unknown) Initial Vital (units ( unknown) date) Signs: unknown) (unknown) (no (unknown) (unknown) Instructions: (units ( unknown) date) Fibromyalgia unknown) (Alternative Therapy), Complex Regional Pain (unknown) (no (unknown) (unknown) Lab Data (units (unkno wn) date) unknown) (unknown) (no (unknown) (unknown) Labs: (units (unkno wn) date) unknown) (unknown) (no (unknown) (unknown) Latuda 2 months (units (unknown) date) ago cold turkey unknown) because she ran out and did not have a (unknown) (no (unknown) (unknown) Lidocaine (units (unkn own) date) (Lidocaine Patch 1 unknown) Each Adh..Patch) 1 each TOP NOW ONE (unknown) (no (unknown) (unknown) Lymph # (Auto) (units (unknown) date) 800 L (2662-5947) unknown) /uL (unknown) (no (unknown) (unknown) Lymph % (Auto) (units (unknown) date) 6.5 L (25-40) % unknown) (unknown) (no (unknown) (unknown) MCH 31.9 (units (unkn own) date) (26-34) PG unknown) (unknown) (no (unknown) (unknown) MCHC 33.7 (units (unk nown) date) (30-36) % unknown) (unknown) (no (unknown) (unknown) MCV 94.6 (units (unkn own) date) (80-100) fL unknown) (unknown) (no (unknown) (unknown) MDM - Neck (units (unk nown) date) Pain/Injury unknown) (unknown) (no (unknown) (unknown) MDM Narrative (units ( unknown) date) unknown) (unknown) (no (unknown) (unknown) MSK: denies joint (units (unknown) date) pain, muscle unknown) weakness (unknown) (no (unknown) (unknown) MSK: moves all (units ( unknown) date) extremities, unknown) ambulatory w/steady gait, neurovascularly intact, no (unknown) (no (unknown) (unknown) Medical decision (units (unknown) date) making narrative: unknown) (unknown) (no (unknown) (unknown) Mode of arrival: (units (unknown) date) Ambulatory unknown) (unknown) (no (unknown) (unknown) [place] # (Auto) 200 (units (unknown) date) (0-900) /uL unknown) (unknown) (no (unknown) (unknown) [place] % (Auto) 1.7 (units (unknown) date) L (3-14) % unknown) (unknown) (no (unknown) (unknown) Mouth/Throat: (units ( unknown) date) uvula midline, unknown) moist mucus membranes (unknown) (no (unknown) (unknown) Narrative (units (unkn own) date) unknown) (unknown) (no (unknown) (unknown) Narrative: (units (unk nown) date) unknown) (unknown) (no (unknown) (unknown) Neck: supple, (units ( unknown) date) atraumatic, without unknown) lymphadenopathy. Patient has left trapezius (unknown) (no (unknown) (unknown) Neuro: denies (units ( unknown) date) numbness, tingling unknown) (unknown) (no (unknown) (unknown) Neuro: normal (units ( unknown) date) speech and unknown) cognition, A+O x3, normal tone (unknown) (no (unknown) (unknown) Neut # (Auto) (units ( unknown) date) 85430 H unknown) (0199-4014) /uL (unknown) (no (unknown) (unknown) Neut % (Auto) (units ( unknown) date) 91.5 H (50-75) % unknown) (unknown) (no (unknown) (unknown) New (units (unkno wn) date) unknown) (unknown) (no (unknown) (unknown) Nose: nares (units (un known) date) patent, no unknown) rhinorrhea (unknown) (no (unknown) (unknown) Ordered: (units (unkno wn) date) unknown) (unknown) (no (unknown) (unknown) Orders (units (unkno wn) date) unknown) (unknown) (no (unknown) (unknown) Patient (units (unkno wn) date) Disposition: Home unknown) (unknown) (no (unknown) (unknown) Patient History (units (unknown) date) unknown) (unknown) (no (unknown) (unknown) Patient states she (units (unknown) date) does not want to unknown) start taking Latuda again because she did (unknown) (no (unknown) (unknown) Patient: (units (unkno wn) date) brittni [address] L unknown) MR#: [id number] (unknown) (no (unknown) (unknown) Penicillins (units (un known) date) Allergy Verified unknown) 07/07/21 12:53 (unknown) (no (unknown) (unknown) Peripheral (units (unk nown) date) neuropathy unknown) (unknown) (no (unknown) (unknown) Please see how the (units (unknown) date) gabapentin helps unknown) your pain, there are other interventions (unknown) (no (unknown) (unknown) Please try and (units (unknown) date) stay active as your unknown) body allows, this will help release (unknown) (no (unknown) (unknown) Potassium 4.6 (units (unknown) date) (3.4-5.1) mmol/L unknown) (unknown) (no (unknown) (unknown) is (units (u nknown) date) negative, CRP ESR unknown) are not elevated. (unknown) (no (unknown) (unknown) Prescriptions: (units (unknown) date) unknown) (unknown) (no (unknown) (unknown) Psych: mental (units ( unknown) date) status is grossly unknown) normal, congruent mood, normal affect, pleasant (unknown) (no (unknown) (unknown) Pulse Oximetry 98 (units (unknown) date) 07/07/21 12:48 unknown) (unknown) (no (unknown) (unknown) Pulse Oximetry 98 (units (unknown) date) unknown) (unknown) (no (unknown) (unknown) Pulse Rate 65 (units (unknown) date) 07/07/21 12:48 unknown) (unknown) (no (unknown) (unknown) Pulse Rate 65 (units ( unknown) date) unknown) (unknown) (no (unknown) (unknown) Qualifiers: (units (un known) date) unknown) (unknown) (no (unknown) (unknown) RDW 13.5 (units (unkn own) date) (11.6-14.8) % unknown) (unknown) (no (unknown) (unknown) Referrals: (units (unk nown) date) unknown) (unknown) (no (unknown) (unknown) Related Data (units (u nknown) date) unknown) (unknown) (no (unknown) (unknown) Respiratory Rate (units (unknown) date) 16 07/07/21 12:48 unknown) (unknown) (no (unknown) (unknown) Respiratory Rate (units (unknown) date) 16 unknown) (unknown) (no (unknown) (unknown) Respiratory: (units (u nknown) date) denies dyspnea, unknown) cough, orthopnea (unknown) (no (unknown) (unknown) Respiratory: (units (u nknown) date) normal effort, able unknown) to speak in complete sentences, no audible (unknown) (no (unknown) (unknown) Result diagrams: (units (unknown) date) unknown) (unknown) (no (unknown) (unknown) Review of Systems (units (unknown) date) unknown) (unknown) (no (unknown) (unknown) Signed By: (units (unk nown) date) unknown) (unknown) (no (unknown) (unknown) Skin: brisk (units (un known) date) capillary refill, unknown) no rash, no erythema (unknown) (no (unknown) (unknown) Skin: denies rash, (units (unknown) date) itching, skin unknown) lesions or other (unknown) (no (unknown) (unknown) Smoking Status: (units (unknown) date) Current every day unknown) smoker (unknown) (no (unknown) (unknown) Smoking Status: (units (unknown) date) Current every day unknown) smoker (unknown) (no (unknown) (unknown) Social History (units (unknown) date) (Reviewed 07/07/21 unknown) @ 15:40 by TOMY Horton) (unknown) (no (unknown) (unknown) Sodium 138 (units (u nknown) date) (137-145) mmol/L unknown) (unknown) (no (unknown) (unknown) Stated Complaint: (units (unknown) date) NECK PAIN TINGLING unknown) OF HAND AND ARMS TIRED (unknown) (no (unknown) (unknown) Substance Use (units ( unknown) date) Type: does not use unknown) (unknown) (no (unknown) (unknown) Sulfa (Sulfonamide (units (unknown) date) Allergy Verified unknown) 07/07/21 12:53 (unknown) (no (unknown) (unknown) Syndrome, DI for (units (unknown) date) Neck Pain unknown) (unknown) (no (unknown) (unknown) Temperature 98 F (units (unknown) date) 07/07/21 12:48 unknown) (unknown) (no (unknown) (unknown) Temperature 98 F (units (unknown) date) unknown) (unknown) (no (unknown) (unknown) This is a (units (unkno wn) date) 26-year-old female unknown) presents to the emergency department complaining of (unknown) (no (unknown) (unknown) This is a (units (unkn own) date) 26-year-old female unknown) who presents to the emergency department (unknown) (no (unknown) (unknown) This is treated (units (unknown) date) with multi unknown) modalities including SSRIs, complementary therapies (unknown) (no (unknown) (unknown) Tan Nguyen (units (unknown) date) MD Jamison unknown) [Physician] - (unknown) (no (unknown) (unknown) Time Seen by (units (u nknown) date) Provider: 07/07/21 unknown) 14:42 (unknown) (no (unknown) (unknown) Total Bilirubin (units (unknown) date) 0.2 (0.2-1.3) unknown) mg/dL (unknown) (no (unknown) (unknown) Total Protein (units ( unknown) date) 7.2 (6.3-8.2) unknown) g/dL (unknown) (no (unknown) (unknown) Tylenol and states (units (unknown) date) none of that was unknown) very helpful. Patient endorses lidocaine (unknown) (no (unknown) (unknown) Tylenol, (units (unkno wn) date) gabapentin, and a unknown) lidocaine patch in the emergency department she (unknown) (no (unknown) (unknown) UA Complete (units (un known) date) [Urinalysis and unknown) Microscopic] Stat (unknown) (no (unknown) (unknown) Vital Signs (units (un known) date) unknown) (unknown) (no (unknown) (unknown) Vital signs: (units (u nknown) date) unknown) (unknown) (no (unknown) (unknown) [Embedded Image (units (unknown) date) Not Available] unknown) (unknown) (no (unknown) (unknown) activity, stay (units (unknown) date) hydrated, eat food unknown) with ibuprofen so that you do not get an (unknown) (no (unknown) (unknown) alcohol intake (units (unknown) date) frequency: a few unknown) times a week (unknown) (no (unknown) (unknown) already has (units (un known) date) opiates and muscle unknown) relaxers at home but when she was offered (unknown) (no (unknown) (unknown) and cooperative (units (unknown) date) unknown) (unknown) (no (unknown) (unknown) another (units (unkno wn) date) prescription of unknown) steroids, muscle relaxers, and morphine tablets without (unknown) (no (unknown) (unknown) any other testing (units (unknown) date) completed. Patient unknown) states that she has had 2 urine test this (unknown) (no (unknown) (unknown) appointment. Let (units (unknown) date) them know you were unknown) seen in the Emergency Department and that we (unknown) (no (unknown) (unknown) are all normal (units (unknown) date) without suspicion unknown) for abnormality. Great news! (unknown) (no (unknown) (unknown) asked that you be (units (unknown) date) seen for follow-up. unknown) We will electronically transmit a record (unknown) (no (unknown) (unknown) best, please go to (units (unknown) date) your appointment on unknown) July 16, follow-up with your primary (unknown) (no (unknown) (unknown) brain/head/C-spine. (units (unknown) date) CT head shows no unknown) acute intracranial abnormality, CT C-spine (unknown) (no (unknown) (unknown) care provider for a (units (unknown) date) referral to unknown) physical therapy and /or advanced imaging if you (unknown) (no (unknown) (unknown) chills, (units (unkno wn) date) diaphoresis, unknown) abdominal pain, states that she threw up yesterday a.m. but (unknown) (no (unknown) (unknown) cognitive (units (unkn own) date) dysfunction, and unknown) peripheral neuropathy. These are all symptoms of (unknown) (no (unknown) (unknown) complaining of (units (unknown) date) left-sided neck unknown) pain for the last 3 weeks, peripheral neuropathy (unknown) (no (unknown) (unknown) concerning (units (unk nown) date) symptoms, such as unknown) [fever greater than 101F, chills, worsening pain, (unknown) (no (unknown) (unknown) days, and oxycodone (units (unknown) date) with muscle unknown) relaxers. She states that it did not help much, (unknown) (no (unknown) (unknown) declined and (units (u nknown) date) states that we are unknown) not doing anything for her. Or there was a (unknown) (no (unknown) (unknown) denies any (units (unk nown) date) diarrhea, rash unknown) isolated pain in 1 area. Patient states that she (unknown) (no (unknown) (unknown) diclofenac sodium (units (unknown) date) 1 % topical gel 2 g unknown) TOPICAL QID #100 g 07/07/21 (unknown) (no (unknown) (unknown) elevated, patient (units (unknown) date) states that unknown) lidocaine patches were the most helpful in she (unknown) (no (unknown) (unknown) establish care (units (unknown) date) with one of the unknown) [facility] primary care providers. (unknown) (no (unknown) (unknown) fatigue (units (unkno wn) date) unknown) (unknown) (no (unknown) (unknown) feels depressed, (units (unknown) date) she has a unknown) psychiatrist appointment on for July 16, 2021. (unknown) (no (unknown) (unknown) fibromyalgia (units (u nknown) date) symptoms. Opted to unknown) rule out tumor or fracture with a CT (unknown) (no (unknown) (unknown) fibromyalgia which (units (unknown) date) is stemming from unknown) undertreated neurochemicals your brain. (unknown) (no (unknown) (unknown) from her neck. (units (unknown) date) She went to [facility] unknown) emergency, was prescribed steroids for 5 (unknown) (no (unknown) (unknown) gabapentin 300 mg (units (unknown) date) capsule 600 mg PO unknown) TID 14 Days #84 caplet 07/07/21 (unknown) (no (unknown) (unknown) groomed (units (unkno wn) date) unknown) (unknown) (no (unknown) (unknown) hand (units (unkno wn) date) unknown) (unknown) (no (unknown) (unknown) in all of her (units ( unknown) date) extremities, unknown) fatigue, depressed mood, and difficulty completing (unknown) (no (unknown) (unknown) include prozac and (units (unknown) date) gabapentin if not unknown) improved on prozac. Your CT brain shows no (unknown) (no (unknown) (unknown) incontinence, (units ( unknown) date) dizziness, vision unknown) changes. (unknown) (no (unknown) (unknown) lidocaine 5 % (units ( unknown) date) topical patch 1 unknown) patch TOPICAL BID PRN #15 ea 07/07/21 (unknown) (no (unknown) (unknown) like cognitive (units (unknown) date) behavioral therapy, unknown) other oral medications which may work for (unknown) (no (unknown) (unknown) like exercise, (units (unknown) date) yoga, acupuncture, unknown) talk therapy, and first line medications (unknown) (no (unknown) (unknown) likely (units (unkno wn) date) contributing to her unknown) mild leukocytosis of 13.1. CRP and ESR were not (unknown) (no (unknown) (unknown) medications for (units (unknown) date) this neck pain and unknown) neuropathy without any improvement in her (unknown) (no (unknown) (unknown) medications or (units (unknown) date) stopping them unknown) altogether. Please continue taking the Prozac as (unknown) (no (unknown) (unknown) muscle relaxers as (units (unknown) date) necessary for unknown) muscle spasms. Please use heat, light (unknown) (no (unknown) (unknown) muscle tension to (units (unknown) date) palpation, no rash, unknown) no masses no tenderness over C-spine (unknown) (no (unknown) (unknown) mutual decision (units (unknown) date) making between unknown) patient and myself to start her on gabapentin (unknown) (no (unknown) (unknown) no other vomiting. (units (unknown) date) States that she unknown) had a negative COVID test at home, she (unknown) (no (unknown) (unknown) none of those have (units (unknown) date) helped at all. unknown) Patient denies any lower extremity weakness, (unknown) (no (unknown) (unknown) normal cervical (units (unknown) date) curvature but no unknown) fracture, stenosis, masses, and soft tissues (unknown) (no (unknown) (unknown) not think it (units (u nknown) date) helped her. unknown) Patient has been using lidocaine patches which she (unknown) (no (unknown) (unknown) of today's note if (units (unknown) date) your PCP is in our unknown) system (unknown) (no (unknown) (unknown) pain started on (units (unknown) date) 06/20/2021 with unknown) neuropathy symptoms down into her fingertips (unknown) (no (unknown) (unknown) pain, and has (units ( unknown) date) tried opiates, unknown) muscle relaxers, lidocaine patches, incident (unknown) (no (unknown) (unknown) patches as being (units (unknown) date) the most helpful. 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 Patient states that she stop taking (unknown) (no (unknown) (unknown) starting (units (unkno wn) date) approximately 2 unknown) weeks ago. Patient states that her left-sided neck (unknown) (no (unknown) (unknown) states are the (units (unknown) date) most helpful, unknown) taking morphine tabs, muscle relaxers, and states (unknown) (no (unknown) (unknown) symptoms. She has (units (unknown) date) been afebrile, unknown) completed 2 courses of steroids, this is (unknown) (no (unknown) (unknown) tenderness with (units (unknown) date) exam, without unknown) guarding or rebound. (unknown) (no (unknown) (unknown) that she has been (units (unknown) date) to would be unknown) emergency department 2 times for this neck pain (unknown) (no (unknown) (unknown) turkey 2 months (units (unknown) date) ago, she is on 20 unknown) mg of Prozac daily, has been using all these (unknown) (no (unknown) (unknown) ulcer. I wish you (units (unknown) date) the best with your unknown) follow-up. (unknown) (no (unknown) (unknown) until she sees her (units (unknown) date) psychiatrist in 9 unknown) days to help treat her for her likely (unknown) (no (unknown) (unknown) vancomycin AdvReac (units (unknown) date) Redness of unknown) Verified 07/07/21 12:53 (unknown) (no (unknown) (unknown) weakness (units (unkno wn) date) unknown) (unknown) (no (unknown) (unknown) week for (units (unknown) date) and they were both unknown) negative. Patient endorses a headache, (unknown) (no (unknown) (unknown) wheezing, stridor, (units (unknown) date) or rales. No unknown) retractions or tachypnea. (unknown) (no (unknown) (unknown) you are, take (units ( unknown) date) ibuprofen or unknown) Tylenol with food and water as needed for your pain, (unknown) (no (unknown) (unknown) you, and there is (units (unknown) date) no evidence that unknown) opioids are effective treatment of this. Result panel 8 (unknown) (no (unknown) (unknown) (no value) (units (unk nown) date) unknown) (unknown) (no (unknown) (unknown) *Please continue (units (unknown) date) to take your unknown) regular medications as directed. (unknown) (no (unknown) (unknown) Date of Service: (units (unknown) date) 07/07/21 unknown) (unknown) (no (unknown) (unknown) (no value) (units (unk nown) date) unknown) (unknown) (no (unknown) (unknown) 07/07/21 14:12 (units (unknown) date) unknown) (unknown) (no (unknown) (unknown) 1 patch topical (units (unknown) date) BID PRN (Reason: unknown) pain) Qty: 15 0RF (unknown) (no (unknown) (unknown) 2 g topical QID (units (unknown) date) Qty: 100 0RF unknown) (unknown) (no (unknown) (unknown) 600 mg PO TID 14 (units (unknown) date) Days Qty: 84 0RF unknown) (unknown) (no (unknown) (unknown) Allergies (units (unkn own) date) unknown) (unknown) (no (unknown) (unknown) Documented by: (units (unknown) date) ABBYKI unknown) (unknown) (no (unknown) (unknown) ED Orders (units (unkn own) date) unknown) (unknown) (no (unknown) (unknown) Emergency Report (units (unknown) date) unknown) (unknown) (no (unknown) (unknown) [facility] (units (unknown) date) [address] [place] [address] unknown) [place] [address] (unknown) (no (unknown) (unknown) Lab Results (units (un known) date) unknown) (unknown) (no (unknown) (unknown) Last Admin: (units (un known) date) 07/07/21 15:36 unknown) Dose: 300 mg (unknown) (no (unknown) (unknown) Last Admin: (units (un known) date) 07/07/21 15:36 unknown) Dose: 975 mg (unknown) (no (unknown) (unknown) Last Admin: (units (un known) date) 07/07/21 15:37 unknown) Dose: 1 each (unknown) (no (unknown) (unknown) Previous Rx's (units ( unknown) date) unknown) (unknown) (no (unknown) (unknown) Rx Instructions: (units (unknown) date) unknown) (unknown) (no (unknown) (unknown) Skin (units (unkno wn) date) unknown) (unknown) (no (unknown) (unknown) Stop: 07/07/21 (units (unknown) date) 15:19 unknown) (unknown) (no (unknown) (unknown) Vital Signs - 8 hr (units (unknown) date) unknown) (unknown) (no (unknown) (unknown) [ ] New medication (units (unknown) date) written as a paper unknown) prescription (unknown) (no (unknown) (unknown) [ ] No new (units (unk nown) date) medications given unknown) (unknown) (no (unknown) (unknown) [ x] New (units (unkno wn) date) medication unknown) prescriptions sent to your pharmacy: [ [facility] (unknown) (no (unknown) (unknown) apply to single (units (unknown) date) elbow, wrist or unknown) hand; for hand includes palm/fingers/back of (unknown) (no (unknown) (unknown) leave on most (units ( unknown) date) painful area for up unknown) to 12 hrs (unknown) (no (unknown) (unknown) (no value) (units (unk nown) date) unknown) (unknown) (no (unknown) (unknown) 07/07/21 07/07/21 (units (unknown) date) Range/Units unknown) (unknown) (no (unknown) (unknown) 14:12 14:12 (units (un known) date) unknown) (unknown) (no (unknown) (unknown) diclofenac sodium (units (unknown) date) [Voltaren Arthritis unknown) Pain] 1 % gel (unknown) (no (unknown) (unknown) gabapentin 300 mg (units (unknown) date) capsule unknown) (unknown) (no (unknown) (unknown) lidocaine (units (unkn own) date) [Lidoderm] 5 % unknown) adhesive patch,medicated (unknown) (no (unknown) (unknown) 07/07/21 (units (unkno wn) date) unknown) (unknown) (no (unknown) (unknown) 3 weeks of (units (unk nown) date) left-sided neck unknown) pain, neuropathy, fatigue, multiple locations of (unknown) (no (unknown) (unknown) Acute neck pain, (units (unknown) date) Fatigue unknown) (unknown) (no (unknown) (unknown) Farson] (units (unkno wn) date) unknown) (unknown) (no (unknown) (unknown) Medication (units (unk nown) date) Instructions unknown) Recorded (unknown) (no (unknown) (unknown) Peripheral (units (unk nown) date) neuropathy type: unknown) polyneuropathy, unspecified Qualified Code(s): (unknown) (no (unknown) (unknown) acute intracranial (units (unknown) date) abnormality, your unknown) CT of your cervical spine shows loss of (unknown) (no (unknown) (unknown) continue to have (units (unknown) date) symptoms. Please unknown) follow-up with a specialist before changing (unknown) (no (unknown) (unknown) shows loss of (units ( unknown) date) cervical lordosis unknown) without any stenosis or acute abnormality. UA (unknown) (no (unknown) (unknown) (Lidoderm) (units (unk nown) date) unknown) (unknown) (no (unknown) (unknown) (Voltaren (units (unkn own) date) Arthritis Pain) unknown) (unknown) (no (unknown) (unknown) *If you do not (units (unknown) date) have a primary care unknown) provider please contact [phone] to (unknown) (no (unknown) (unknown) *Please follow up (units (unknown) date) with your primary unknown) care provider in 2-3 days, call for an (unknown) (no (unknown) (unknown) *Return to (units (unk nown) date) Emergency unknown) Department if you should have any new, worsening or (unknown) (no (unknown) (unknown) *What to do: (units (u nknown) date) unknown) (unknown) (no (unknown) (unknown) *You have been (units (unknown) date) diagnosed with pain unknown) in multiple locations, fatigue, insomnia, (unknown) (no (unknown) (unknown) 07/07/21 14:12 (units (unknown) date) unknown) (unknown) (no (unknown) (unknown) 07/07/21 15:33 (units (unknown) date) unknown) (unknown) (no (unknown) (unknown) 07/07/21 15:43 (units (unknown) date) unknown) (unknown) (no (unknown) (unknown) 07/07/21 16:18 (units (unknown) date) unknown) (unknown) (no (unknown) (unknown) 12:48 (units (unkno wn) date) unknown) (unknown) (no (unknown) (unknown) 9601 (units (unkno wn) date) unknown) (unknown) (no (unknown) (unknown) ALT 53 H (<35) (units (unknown) date) IU/L unknown) (unknown) (no (unknown) (unknown) AST 26 (14-36) (units (unknown) date) IU/L unknown) (unknown) (no (unknown) (unknown) Acetaminophen (units ( unknown) date) (Acetaminophen 325 unknown) Mg Tablet) 975 mg PO NOW ONE (unknown) (no (unknown) (unknown) Activity (units (unkno wn) date) Restrictions/Additi unknown) onal Instructions: (unknown) (no (unknown) (unknown) Age/Sex: 26 / F (units (unknown) date) unknown) (unknown) (no (unknown) (unknown) Albumin 4.7 (units ( unknown) date) (3.5-5.0) g/dL unknown) (unknown) (no (unknown) (unknown) Albumin/Globulin (units (unknown) date) Ratio 1.9 unknown) (1.0-2.8) (unknown) (no (unknown) (unknown) Alkaline (units (unkno wn) date) Phosphatase 55 unknown) (38-126) U/L (unknown) (no (unknown) (unknown) Allergy/AdvReac (units (unknown) date) Type Severity unknown) Reaction Status Date / Time (unknown) (no (unknown) (unknown) Antibiotics) (units (u nknown) date) unknown) (unknown) (no (unknown) (unknown) BUN 19 H (7-17) (units (unknown) date) mg/dL unknown) (unknown) (no (unknown) (unknown) BUN/Creatinine (units (unknown) date) Ratio 20.7 unknown) (6-22) (unknown) (no (unknown) (unknown) Baso # (Auto) 0 (units (unknown) date) (0-100) /uL unknown) (unknown) (no (unknown) (unknown) Baso % (Auto) 0.2 (units (unknown) date) (0-2) % unknown) (unknown) (no (unknown) (unknown) Blood Pressure (units (unknown) date) 143/72 H 07/07/21 unknown) 12:48 (unknown) (no (unknown) (unknown) Blood Pressure (units (unknown) date) 143/72 H unknown) (unknown) (no (unknown) (unknown) C-Reactive Protein (units (unknown) date) < 0.5 (<1.0) unknown) mg/dL (unknown) (no (unknown) (unknown) CBC Auto Diff (units ( unknown) date) [Complete Blood unknown) Count AUTO DIFF] Stat (unknown) (no (unknown) (unknown) CMP [Comprehensive (units (unknown) date) Metabolic Panel] unknown) Stat (unknown) (no (unknown) (unknown) CRP [C-Reactive (units (unknown) date) Protein Quant] Stat unknown) (unknown) (no (unknown) (unknown) CT cervical spine (units (unknown) date) wo con Stat unknown) (unknown) (no (unknown) (unknown) CT head/brain wo (units (unknown) date) con Stat unknown) (unknown) (no (unknown) (unknown) Calcium 9.2 (units ( unknown) date) (8.4-10.2) mg/dL unknown) (unknown) (no (unknown) (unknown) Carbon Dioxide (units (unknown) date) 32 (22-32) mmol/L unknown) (unknown) (no (unknown) (unknown) Cardio: denies (units (unknown) date) chest pain, unknown) palpitations, edema (unknown) (no (unknown) (unknown) Cardiovascular: (units (unknown) date) regular rate and unknown) rhythm, no peripheral edema, warm extremities (unknown) (no (unknown) (unknown) Chief Complaint: (units (unknown) date) Neck Pain/Injury unknown) (unknown) (no (unknown) (unknown) Chloride 100 (units (unknown) date) (98-107) mmol/L unknown) (unknown) (no (unknown) (unknown) Clinical (units (unkno wn) date) Impression: unknown) (unknown) (no (unknown) (unknown) Course (units (unkno wn) date) unknown) (unknown) (no (unknown) (unknown) Creatinine 0.92 (units (unknown) date) (0.52-1.04) mg/dL unknown) (unknown) (no (unknown) (unknown) : 1995 (units (unknown) date) Acct:[id number] unknown) (unknown) (no (unknown) (unknown) Departure (units (unkn own) date) unknown) (unknown) (no (unknown) (unknown) Discharge Plan (units (unknown) date) unknown) (unknown) (no (unknown) (unknown) Discontinued (units (u nknown) date) Medications unknown) (unknown) (no (unknown) (unknown) ER Physician: (units ( unknown) date) Latonya Mishra unknown) [employer]END[employer] (unknown) (no (unknown) (unknown) ESR 2 (0-20) (units (unknown) date) MM/HR unknown) (unknown) (no (unknown) (unknown) Endocannabinoids (units (unknown) date) which will treat unknown) your pain from your brain. I wish you the (unknown) (no (unknown) (unknown) Eos # (Auto) 0 (units (unknown) date) (0-450) /uL unknown) (unknown) (no (unknown) (unknown) Eos % (Auto) 0.1 (units (unknown) date) L (2-4) % unknown) (unknown) (no (unknown) (unknown) Erythrocyte (units (un known) date) Sedimentation Rate unknown) Stat (unknown) (no (unknown) (unknown) Estimated GFR > (units (unknown) date) 60 (>60) mL/min unknown) (unknown) (no (unknown) (unknown) Evidence suggests (units (unknown) date) that opiates have unknown) adverse effects on chronic pain syndromes. (unknown) (no (unknown) (unknown) Exam (units (unkno wn) date) unknown) (unknown) (no (unknown) (unknown) Exam Narrative: (units (unknown) date) unknown) (unknown) (no (unknown) (unknown) Eyes: denies (units (u nknown) date) visual changes, eye unknown) pain (unknown) (no (unknown) (unknown) Eyes: pupils equal (units (unknown) date) round and reactive, unknown) EOMI, conjunctiva normal (unknown) (no (unknown) (unknown) G62.9 - (units (unkno wn) date) Polyneuropathy, unknown) unspecified (unknown) (no (unknown) (unknown) GI: abdomen soft, (units (unknown) date) nontender to unknown) palpation, nondistended, no masses, no exquisite (unknown) (no (unknown) (unknown) GI: denies (units (unk nown) date) abdominal pain, unknown) nausea, vomiting, or diarrhea (unknown) (no (unknown) (unknown) : denies (units (unk nown) date) dysuria, hematuria, unknown) urinary retention, frequency or incontinence (unknown) (no (unknown) (unknown) Gabapentin (units (unk nown) date) (Gabapentin 300 Mg unknown) Capsule) 300 mg PO NOW ONE (unknown) (no (unknown) (unknown) General (units (unkno wn) date) unknown) (unknown) (no (unknown) (unknown) General: (units (unkno wn) date) cooperative, unknown) comfortable, in no acute distress, well developed and well (unknown) (no (unknown) (unknown) General: denies (units (unknown) date) fever, chills, unknown) malaise, sweats, endorses daily and crippling (unknown) (no (unknown) (unknown) GenericComposite[P (units (unknown) date) lt Count 290 unknown) (150-400) X10^3/uL ] (unknown) (no (unknown) (unknown) GenericComposite[R (units (unknown) date) BC 4.27 unknown) (4.0-5.2) X10^6/uL ] (unknown) (no (unknown) (unknown) GenericComposite[W (units (unknown) date) BC 13.1 H unknown) (4.5-11.0) X10^3/uL ] (unknown) (no (unknown) (unknown) Globulin 2.5 (units (unknown) date) (1.7-4.1) g/dL unknown) (unknown) (no (unknown) (unknown) Glucose 142 H (units (unknown) date) (70-100) mg/dL unknown) (unknown) (no (unknown) (unknown) HPI - Neck (units (unk nown) date) Pain/Injury unknown) (unknown) (no (unknown) (unknown) HPI Narrative: (units (unknown) date) unknown) (unknown) (no (unknown) (unknown) Hct 40.4 (units (unkn own) date) (36-46) % unknown) (unknown) (no (unknown) (unknown) Head/Neck: denies (units (unknown) date) headache, neck unknown) pain, dizziness (unknown) (no (unknown) (unknown) Head: atraumatic, (units (unknown) date) symmetrical facial unknown) expressions (unknown) (no (unknown) (unknown) Hgb 13.6 (units (unkn own) date) (12.0-16.0) g/dL unknown) (unknown) (no (unknown) (unknown) History of Present (units (unknown) date) Illness unknown) (unknown) (no (unknown) (unknown) Independently (units ( unknown) date) reviewed vitals unknown) signs and nursing notes. (unknown) (no (unknown) (unknown) Initial Vital (units ( unknown) date) Signs unknown) (unknown) (no (unknown) (unknown) Initial Vital (units ( unknown) date) Signs: unknown) (unknown) (no (unknown) (unknown) Instructions: (units ( unknown) date) Fibromyalgia unknown) (Alternative Therapy), Complex Regional Pain (unknown) (no (unknown) (unknown) Lab Data (units (unkno wn) date) unknown) (unknown) (no (unknown) (unknown) Labs: (units (unkno wn) date) unknown) (unknown) (no (unknown) (unknown) Latuda 2 months (units (unknown) date) ago cold turkey unknown) because she ran out and did not have a (unknown) (no (unknown) (unknown) Lidocaine (units (unkn own) date) (Lidocaine Patch 1 unknown) Each Adh..Patch) 1 each TOP NOW ONE (unknown) (no (unknown) (unknown) Lymph # (Auto) (units (unknown) date) 800 L (0466-8902) unknown) /uL (unknown) (no (unknown) (unknown) Lymph % (Auto) (units (unknown) date) 6.5 L (25-40) % unknown) (unknown) (no (unknown) (unknown) MCH 31.9 (units (unkn own) date) (26-34) PG unknown) (unknown) (no (unknown) (unknown) MCHC 33.7 (units (unk nown) date) (30-36) % unknown) (unknown) (no (unknown) (unknown) MCV 94.6 (units (unkn own) date) (80-100) fL unknown) (unknown) (no (unknown) (unknown) MDM - Neck (units (unk nown) date) Pain/Injury unknown) (unknown) (no (unknown) (unknown) MDM Narrative (units ( unknown) date) unknown) (unknown) (no (unknown) (unknown) MSK: denies joint (units (unknown) date) pain, muscle unknown) weakness (unknown) (no (unknown) (unknown) MSK: moves all (units ( unknown) date) extremities, unknown) ambulatory w/steady gait, neurovascularly intact, no (unknown) (no (unknown) (unknown) Medical decision (units (unknown) date) making narrative: unknown) (unknown) (no (unknown) (unknown) Mode of arrival: (units (unknown) date) Ambulatory unknown) (unknown) (no (unknown) (unknown) [place]ling # (Auto) 200 (units (unknown) date) (0-900) /uL unknown) (unknown) (no (unknown) (unknown) [place] % (Auto) 1.7 (units (unknown) date) L (3-14) % unknown) (unknown) (no (unknown) (unknown) Mouth/Throat: (units ( unknown) date) uvula midline, unknown) moist mucus membranes (unknown) (no (unknown) (unknown) Narrative (units (unkn own) date) unknown) (unknown) (no (unknown) (unknown) Narrative: (units (unk nown) date) unknown) (unknown) (no (unknown) (unknown) Neck: supple, (units ( unknown) date) atraumatic, without unknown) lymphadenopathy. Patient has left trapezius (unknown) (no (unknown) (unknown) Neuro: denies (units ( unknown) date) numbness, tingling unknown) (unknown) (no (unknown) (unknown) Neuro: normal (units ( unknown) date) speech and unknown) cognition, A+O x3, normal tone (unknown) (no (unknown) (unknown) Neut # (Auto) (units ( unknown) date) 53919 H unknown) (5213-6198) /uL (unknown) (no (unknown) (unknown) Neut % (Auto) (units ( unknown) date) 91.5 H (50-75) % unknown) (unknown) (no (unknown) (unknown) New (units (unkno wn) date) unknown) (unknown) (no (unknown) (unknown) Nose: nares (units (un known) date) patent, no unknown) rhinorrhea (unknown) (no (unknown) (unknown) Ordered: (units (unkno wn) date) unknown) (unknown) (no (unknown) (unknown) Orders (units (unkno wn) date) unknown) (unknown) (no (unknown) (unknown) Patient (units (unkno wn) date) Disposition: Home unknown) (unknown) (no (unknown) (unknown) Patient History (units (unknown) date) unknown) (unknown) (no (unknown) (unknown) Patient states she (units (unknown) date) does not want to unknown) start taking Latuda again because she did (unknown) (no (unknown) (unknown) Patient: (units (unkno wn) date) [address]ittni [address] unknown) MR#: [id number] (unknown) (no (unknown) (unknown) Penicillins (units (un known) date) Allergy Verified unknown) 07/07/21 12:53 (unknown) (no (unknown) (unknown) Peripheral (units (unk nown) date) neuropathy unknown) (unknown) (no (unknown) (unknown) Please see how the (units (unknown) date) gabapentin helps unknown) your pain, there are other interventions (unknown) (no (unknown) (unknown) Please try and (units (unknown) date) stay active as your unknown) body allows, this will help release (unknown) (no (unknown) (unknown) Potassium 4.6 (units (unknown) date) (3.4-5.1) mmol/L unknown) (unknown) (no (unknown) (unknown) is (units (u nknown) date) negative, CRP ESR unknown) are not elevated. (unknown) (no (unknown) (unknown) Prescriptions: (units (unknown) date) unknown) (unknown) (no (unknown) (unknown) Psych: mental (units ( unknown) date) status is grossly unknown) normal, congruent mood, normal affect, pleasant (unknown) (no (unknown) (unknown) Pulse Oximetry 98 (units (unknown) date) 07/07/21 12:48 unknown) (unknown) (no (unknown) (unknown) Pulse Oximetry 98 (units (unknown) date) unknown) (unknown) (no (unknown) (unknown) Pulse Rate 65 (units (unknown) date) 07/07/21 12:48 unknown) (unknown) (no (unknown) (unknown) Pulse Rate 65 (units ( unknown) date) unknown) (unknown) (no (unknown) (unknown) Qualifiers: (units (un known) date) unknown) (unknown) (no (unknown) (unknown) RDW 13.5 (units (unkn own) date) (11.6-14.8) % unknown) (unknown) (no (unknown) (unknown) Referrals: (units (unk nown) date) unknown) (unknown) (no (unknown) (unknown) Related Data (units (u nknown) date) unknown) (unknown) (no (unknown) (unknown) Respiratory Rate (units (unknown) date) 16 07/07/21 12:48 unknown) (unknown) (no (unknown) (unknown) Respiratory Rate (units (unknown) date) 16 unknown) (unknown) (no (unknown) (unknown) Respiratory: (units (u nknown) date) denies dyspnea, unknown) cough, orthopnea (unknown) (no (unknown) (unknown) Respiratory: (units (u nknown) date) normal effort, able unknown) to speak in complete sentences, no audible (unknown) (no (unknown) (unknown) Result diagrams: (units (unknown) date) unknown) (unknown) (no (unknown) (unknown) Review of Systems (units (unknown) date) unknown) (unknown) (no (unknown) (unknown) Signed By: (units (unk nown) date) unknown) (unknown) (no (unknown) (unknown) Skin: brisk (units (un known) date) capillary refill, unknown) no rash, no erythema (unknown) (no (unknown) (unknown) Skin: denies rash, (units (unknown) date) itching, skin unknown) lesions or other (unknown) (no (unknown) (unknown) Smoking Status: (units (unknown) date) Current every day unknown) smoker (unknown) (no (unknown) (unknown) Smoking Status: (units (unknown) date) Current every day unknown) smoker (unknown) (no (unknown) (unknown) Social History (units (unknown) date) (Reviewed 07/07/21 unknown) @ 15:40 by Latonya Mishra [employer]) (unknown) (no (unknown) (unknown) Sodium 138 (units (u nknown) date) (137-145) mmol/L unknown) (unknown) (no (unknown) (unknown) Stated Complaint: (units (unknown) date) NECK PAIN TINGLING unknown) OF HAND AND ARMS TIRED (unknown) (no (unknown) (unknown) Substance Use (units ( unknown) date) Type: does not use unknown) (unknown) (no (unknown) (unknown) Sulfa (Sulfonamide (units (unknown) date) Allergy Verified unknown) 07/07/21 12:53 (unknown) (no (unknown) (unknown) Syndrome, DI for (units (unknown) date) Neck Pain unknown) (unknown) (no (unknown) (unknown) Temperature 98 F (units (unknown) date) 07/07/21 12:48 unknown) (unknown) (no (unknown) (unknown) Temperature 98 F (units (unknown) date) unknown) (unknown) (no (unknown) (unknown) This is a (units (unkno wn) date) 26-year-old female unknown) presents to the emergency department complaining of (unknown) (no (unknown) (unknown) This is a (units (unkn own) date) 26-year-old female unknown) who presents to the emergency department (unknown) (no (unknown) (unknown) This is treated (units (unknown) date) with multi unknown) modalities including SSRIs, complementary therapies (unknown) (no (unknown) (unknown) Tan Nguyen (units (unknown) date) MD Jamison unknown) [Physician] - (unknown) (no (unknown) (unknown) Time Seen by (units (u nknown) date) Provider: 07/07/21 unknown) 14:42 (unknown) (no (unknown) (unknown) Total Bilirubin (units (unknown) date) 0.2 (0.2-1.3) unknown) mg/dL (unknown) (no (unknown) (unknown) Total Protein (units ( unknown) date) 7.2 (6.3-8.2) unknown) g/dL (unknown) (no (unknown) (unknown) Tylenol and states (units (unknown) date) none of that was unknown) very helpful. Patient endorses lidocaine (unknown) (no (unknown) (unknown) Tylenol, (units (unkno wn) date) gabapentin, and a unknown) lidocaine patch in the emergency department she (unknown) (no (unknown) (unknown) UA Complete (units (un known) date) [Urinalysis and unknown) Microscopic] Stat (unknown) (no (unknown) (unknown) Urine Culture Stat (units (unknown) date) unknown) (unknown) (no (unknown) (unknown) Urine Microscopic (units (unknown) date) Stat unknown) (unknown) (no (unknown) (unknown) Vital Signs (units (un known) date) unknown) (unknown) (no (unknown) (unknown) Vital signs: (units (u nknown) date) unknown) (unknown) (no (unknown) (unknown) [Embedded Image (units (unknown) date) Not Available] unknown) (unknown) (no (unknown) (unknown) activity, stay (units (unknown) date) hydrated, eat food unknown) with ibuprofen so that you do not get an (unknown) (no (unknown) (unknown) alcohol intake (units (unknown) date) frequency: a few unknown) times a week (unknown) (no (unknown) (unknown) already has (units (un known) date) opiates and muscle unknown) relaxers at home but when she was offered (unknown) (no (unknown) (unknown) and cooperative (units (unknown) date) unknown) (unknown) (no (unknown) (unknown) another (units (unkno wn) date) prescription of unknown) steroids, muscle relaxers, and morphine tablets without (unknown) (no (unknown) (unknown) any other testing (units (unknown) date) completed. Patient unknown) states that she has had 2 urine test this (unknown) (no (unknown) (unknown) appointment. Let (units (unknown) date) them know you were unknown) seen in the Emergency Department and that we (unknown) (no (unknown) (unknown) are all normal (units (unknown) date) without suspicion unknown) for abnormality. Great news! (unknown) (no (unknown) (unknown) asked that you be (units (unknown) date) seen for follow-up. unknown) We will electronically transmit a record (unknown) (no (unknown) (unknown) best, please go to (units (unknown) date) your appointment on unknown) July 16, follow-up with your primary (unknown) (no (unknown) (unknown) brain/head/C-spine. (units (unknown) date) CT head shows no unknown) acute intracranial abnormality, CT C-spine (unknown) (no (unknown) (unknown) care provider for a (units (unknown) date) referral to unknown) physical therapy and /or advanced imaging if you (unknown) (no (unknown) (unknown) chills, (units (unkno wn) date) diaphoresis, unknown) abdominal pain, states that she threw up yesterday a.m. but (unknown) (no (unknown) (unknown) cognitive (units (unkn own) date) dysfunction, and unknown) peripheral neuropathy. These are all symptoms of (unknown) (no (unknown) (unknown) complaining of (units (unknown) date) left-sided neck unknown) pain for the last 3 weeks, peripheral neuropathy (unknown) (no (unknown) (unknown) concerning (units (unk nown) date) symptoms, such as unknown) [fever greater than 101F, chills, worsening pain, (unknown) (no (unknown) (unknown) days, and oxycodone (units (unknown) date) with muscle unknown) relaxers. She states that it did not help much, (unknown) (no (unknown) (unknown) declined and (units (u nknown) date) states that we are unknown) not doing anything for her. Or there was a (unknown) (no (unknown) (unknown) denies any (units (unk nown) date) diarrhea, rash unknown) isolated pain in 1 area. Patient states that she (unknown) (no (unknown) (unknown) diclofenac sodium (units (unknown) date) 1 % topical gel 2 g unknown) TOPICAL QID #100 g 07/07/21 (unknown) (no (unknown) (unknown) elevated, patient (units (unknown) date) states that unknown) lidocaine patches were the most helpful in she (unknown) (no (unknown) (unknown) establish care (units (unknown) date) with one of the unknown) [facility] primary care providers. (unknown) (no (unknown) (unknown) fatigue (units (unkno wn) date) unknown) (unknown) (no (unknown) (unknown) feels depressed, (units (unknown) date) she has a unknown) psychiatrist appointment on for July 16, 2021. (unknown) (no (unknown) (unknown) fibromyalgia (units (u nknown) date) symptoms. Opted to unknown) rule out tumor or fracture with a CT (unknown) (no (unknown) (unknown) fibromyalgia which (units (unknown) date) is stemming from unknown) undertreated neurochemicals your brain. (unknown) (no (unknown) (unknown) from her neck. (units (unknown) date) [facility], was prescribed steroids for 5 (unknown) (no (unknown) (unknown) gabapentin 300 mg (units (unknown) date) capsule 600 mg PO unknown) TID 14 Days #84 caplet 07/07/21 (unknown) (no (unknown) (unknown) groomed (units (unkno wn) date) unknown) (unknown) (no (unknown) (unknown) hand (units (unkno wn) date) unknown) (unknown) (no (unknown) (unknown) in all of her (units ( unknown) date) extremities, unknown) fatigue, depressed mood, and difficulty completing (unknown) (no (unknown) (unknown) include prozac and (units (unknown) date) gabapentin if not unknown) improved on prozac. Your CT brain shows no (unknown) (no (unknown) (unknown) incontinence, (units ( unknown) date) dizziness, vision unknown) changes. (unknown) (no (unknown) (unknown) lidocaine 5 % (units ( unknown) date) topical patch 1 unknown) patch TOPICAL BID PRN #15 ea 07/07/21 (unknown) (no (unknown) (unknown) like cognitive (units (unknown) date) behavioral therapy, unknown) other oral medications which may work for (unknown) (no (unknown) (unknown) like exercise, (units (unknown) date) yoga, acupuncture, unknown) talk therapy, and first line medications (unknown) (no (unknown) (unknown) likely (units (unkno wn) date) contributing to her unknown) mild leukocytosis of 13.1. CRP and ESR were not (unknown) (no (unknown) (unknown) medications for (units (unknown) date) this neck pain and unknown) neuropathy without any improvement in her (unknown) (no (unknown) (unknown) medications or (units (unknown) date) stopping them unknown) altogether. Please continue taking the Prozac as (unknown) (no (unknown) (unknown) muscle relaxers as (units (unknown) date) necessary for unknown) muscle spasms. Please use heat, light (unknown) (no (unknown) (unknown) muscle tension to (units (unknown) date) palpation, no rash, unknown) no masses no tenderness over C-spine (unknown) (no (unknown) (unknown) mutual decision (units (unknown) date) making between unknown) patient and myself to start her on gabapentin (unknown) (no (unknown) (unknown) no other vomiting. (units (unknown) date) States that she unknown) had a negative COVID test at home, she (unknown) (no (unknown) (unknown) none of those have (units (unknown) date) helped at all. unknown) Patient denies any lower extremity weakness, (unknown) (no (unknown) (unknown) normal cervical (units (unknown) date) curvature but no unknown) fracture, stenosis, masses, and soft tissues (unknown) (no (unknown) (unknown) not think it (units (u nknown) date) helped her. unknown) Patient has been using lidocaine patches which she (unknown) (no (unknown) (unknown) of today's note if (units (unknown) date) your PCP is in our unknown) system (unknown) (no (unknown) (unknown) pain started on (units (unknown) date) 06/20/2021 with unknown) neuropathy symptoms down into her fingertips (unknown) (no (unknown) (unknown) pain, and has (units ( unknown) date) tried opiates, unknown) muscle relaxers, lidocaine patches, incident (unknown) (no (unknown) (unknown) patches as being (units (unknown) date) the most helpful. 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 Patient states that she stop taking (unknown) (no (unknown) (unknown) starting (units (unkno wn) date) approximately 2 unknown) weeks ago. Patient states that her left-sided neck (unknown) (no (unknown) (unknown) states are the (units (unknown) date) most helpful, unknown) taking morphine tabs, muscle relaxers, and states (unknown) (no (unknown) (unknown) symptoms. She has (units (unknown) date) been afebrile, unknown) completed 2 courses of steroids, this is (unknown) (no (unknown) (unknown) tenderness with (units (unknown) date) exam, without unknown) guarding or rebound. (unknown) (no (unknown) (unknown) that she has been (units (unknown) date) to would be unknown) emergency department 2 times for this neck pain (unknown) (no (unknown) (unknown) turkey 2 months (units (unknown) date) ago, she is on 20 unknown) mg of Prozac daily, has been using all these (unknown) (no (unknown) (unknown) ulcer. I wish you (units (unknown) date) the best with your unknown) follow-up. (unknown) (no (unknown) (unknown) until she sees her (units (unknown) date) psychiatrist in 9 unknown) days to help treat her for her likely (unknown) (no (unknown) (unknown) vancomycin AdvReac (units (unknown) date) Redness of unknown) Verified 07/07/21 12:53 (unknown) (no (unknown) (unknown) weakness (units (unkno wn) date) unknown) (unknown) (no (unknown) (unknown) week for (units (unknown) date) and they were both unknown) negative. Patient endorses a headache, (unknown) (no (unknown) (unknown) wheezing, stridor, (units (unknown) date) or rales. No unknown) retractions or tachypnea. (unknown) (no (unknown) (unknown) you are, take (units ( unknown) date) ibuprofen or unknown) Tylenol with food and water as needed for your pain, (unknown) (no (unknown) (unknown) you, and there is (units (unknown) date) no evidence that unknown) opioids are effective treatment of this. Result panel 9 (unknown) (no (unknown) (unknown) (no value) (units (unk nown) date) unknown) (unknown) (no (unknown) (unknown) Radiologist's (units ( unknown) date) Impression: unknown) (unknown) (no (unknown) (unknown) *Please continue (units (unknown) date) to take your unknown) regular medications as directed. (unknown) (no (unknown) (unknown) Date of Service: (units (unknown) date) 07/07/21 unknown) (unknown) (no (unknown) (unknown) (no value) (units (unk nown) date) unknown) (unknown) (no (unknown) (unknown) 07/07/21 14:12 (units (unknown) date) unknown) (unknown) (no (unknown) (unknown) 1 patch topical (units (unknown) date) BID PRN (Reason: unknown) pain) Qty: 15 0RF (unknown) (no (unknown) (unknown) 2 g topical QID (units (unknown) date) Qty: 100 0RF unknown) (unknown) (no (unknown) (unknown) 50 mg PO BID PRN (units (unknown) date) (Reason: pain) Qty: unknown) 20 0RF (unknown) (no (unknown) (unknown) 600 mg PO TID 14 (units (unknown) date) Days Qty: 84 0RF unknown) (unknown) (no (unknown) (unknown) 750 mg PO Q8H PRN (units (unknown) date) (Reason: muscle unknown) spasm, insomnia) Qty: 20 0RF (unknown) (no (unknown) (unknown) Allergies (units (unkn own) date) unknown) (unknown) (no (unknown) (unknown) Documented by: (units (unknown) date) KWOYSKI unknown) (unknown) (no (unknown) (unknown) ED Orders (units (unkn own) date) unknown) (unknown) (no (unknown) (unknown) Emergency Report (units (unknown) date) unknown) (unknown) (no (unknown) (unknown) [facility] (units (unknown) date) [address] unknown) [place] [address] (unknown) (no (unknown) (unknown) Lab Results (units (un known) date) unknown) (unknown) (no (unknown) (unknown) Last Admin: (units (un known) date) 07/07/21 15:36 unknown) Dose: 300 mg (unknown) (no (unknown) (unknown) Last Admin: (units (un known) date) 07/07/21 15:36 unknown) Dose: 975 mg (unknown) (no (unknown) (unknown) Last Admin: (units (un known) date) 07/07/21 15:37 unknown) Dose: 1 each (unknown) (no (unknown) (unknown) Point of Care (units ( unknown) date) Testing unknown) (unknown) (no (unknown) (unknown) Previous Rx's (units ( unknown) date) unknown) (unknown) (no (unknown) (unknown) Rx Instructions: (units (unknown) date) unknown) (unknown) (no (unknown) (unknown) Skin (units (unkno wn) date) unknown) (unknown) (no (unknown) (unknown) Stop: 07/07/21 (units (unknown) date) 15:19 unknown) (unknown) (no (unknown) (unknown) Stop: 07/07/21 (units (unknown) date) 16:31 unknown) (unknown) (no (unknown) (unknown) Stop: 07/07/21 (units (unknown) date) 16:32 unknown) (unknown) (no (unknown) (unknown) Urine Dip (units (unkn own) date) unknown) (unknown) (no (unknown) (unknown) Vital Signs - 8 hr (units (unknown) date) unknown) (unknown) (no (unknown) (unknown) [ ] New medication (units (unknown) date) written as a paper unknown) prescription (unknown) (no (unknown) (unknown) [ ] No new (units (unk nown) date) medications given unknown) (unknown) (no (unknown) (unknown) [ x] New (units (unkno wn) date) medication unknown) prescriptions sent to your pharmacy: [ [facility] (unknown) (no (unknown) (unknown) apply to single (units (unknown) date) elbow, wrist or unknown) hand; for hand includes palm/fingers/back of (unknown) (no (unknown) (unknown) leave on most (units ( unknown) date) painful area for up unknown) to 12 hrs (unknown) (no (unknown) (unknown) (no value) (units (unk nown) date) unknown) (unknown) (no (unknown) (unknown) 07/07/21 07/07/21 (units (unknown) date) Range/Units unknown) (unknown) (no (unknown) (unknown) 14:12 14:12 (units (un known) date) unknown) (unknown) (no (unknown) (unknown) diclofenac sodium (units (unknown) date) [Voltaren Arthritis unknown) Pain] 1 % gel (unknown) (no (unknown) (unknown) gabapentin 300 mg (units (unknown) date) capsule unknown) (unknown) (no (unknown) (unknown) lidocaine (units (unkn own) date) [Lidoderm] 5 % unknown) adhesive patch,medicated (unknown) (no (unknown) (unknown) methocarbamol 750 (units (unknown) date) mg tablet unknown) (unknown) (no (unknown) (unknown) tramadol [Ultram] (units (unknown) date) 50 mg tablet unknown) (unknown) (no (unknown) (unknown) 07/07/21 (units (unkno wn) date) unknown) (unknown) (no (unknown) (unknown) 3 weeks of (units (unk nown) date) left-sided neck unknown) pain, neuropathy, fatigue, multiple locations of (unknown) (no (unknown) (unknown) Acute neck pain, (units (unknown) date) Fatigue unknown) (unknown) (no (unknown) (unknown) Farson] (units (unkno wn) date) unknown) (unknown) (no (unknown) (unknown) Medication (units (unk nown) date) Instructions unknown) Recorded (unknown) (no (unknown) (unknown) Peripheral (units (unk n) date) neuropathy type: unknown) polyneuropathy, unspecified Qualified Code(s): (unknown) (no (unknown) (unknown) acute intracranial (units (unknown) date) abnormality, your unknown) CT of your cervical spine shows loss of (unknown) (no (unknown) (unknown) as sudden onset, (units (unknown) date) increasing unknown) frequency, immunocompromise, systemic signs (fever, (unknown) (no (unknown) (unknown) chills, stiff (units ( unknown) date) neck, or rash), unknown) focal neurologic findings, trauma, blood (unknown) (no (unknown) (unknown) continue to have (units (unknown) date) symptoms. Please unknown) follow-up with a specialist before changing (unknown) (no (unknown) (unknown) instructed. (units (un known) date) Patient understands unknown) plan and agrees to discharge home. All (unknown) (no (unknown) (unknown) shows loss of (units ( unknown) date) cervical lordosis unknown) without any stenosis or acute abnormality. UA (unknown) (no (unknown) (unknown) sign, altered (units ( unknown) date) mental status or unknown) fever. (unknown) (no (unknown) (unknown) (Lidoderm) (units (unk nown) date) unknown) (unknown) (no (unknown) (unknown) (Voltaren (units (unkn own) date) Arthritis Pain) unknown) (unknown) (no (unknown) (unknown) *If you do not (units (unknown) date) have a primary care unknown) provider please contact [phone] to (unknown) (no (unknown) (unknown) *Please follow up (units (unknown) date) with your primary unknown) care provider in 2-3 days, call for an (unknown) (no (unknown) (unknown) *Return to (units (unk nown) date) Emergency unknown) Department if you should have any new, worsening or (unknown) (no (unknown) (unknown) *What to do: (units (u nknown) date) unknown) (unknown) (no (unknown) (unknown) *You have been (units (unknown) date) diagnosed with pain unknown) in multiple locations, fatigue, insomnia, (unknown) (no (unknown) (unknown) 07/07/21 14:12 (units (unknown) date) unknown) (unknown) (no (unknown) (unknown) 07/07/21 15:33 (units (unknown) date) unknown) (unknown) (no (unknown) (unknown) 07/07/21 16:24 (units (unknown) date) unknown) (unknown) (no (unknown) (unknown) 1. No acute (units (un known) date) intracranial unknown) abnormalities. (unknown) (no (unknown) (unknown) 12:48 (units (unkno wn) date) unknown) (unknown) (no (unknown) (unknown) 9601 (units (unkno wn) date) unknown) (unknown) (no (unknown) (unknown) ? (units (unkno wn) date) unknown) (unknown) (no (unknown) (unknown) ALT 53 H (<35) (units (unknown) date) IU/L unknown) (unknown) (no (unknown) (unknown) AST 26 (14-36) (units (unknown) date) IU/L unknown) (unknown) (no (unknown) (unknown) Acetaminophen (units ( unknown) date) (Acetaminophen 325 unknown) Mg Tablet) 975 mg PO NOW ONE (unknown) (no (unknown) (unknown) Activity (units (unkno wn) date) Restrictions/Additi unknown) onal Instructions: (unknown) (no (unknown) (unknown) Age/Sex: 26 / F (units (unknown) date) unknown) (unknown) (no (unknown) (unknown) Albumin 4.7 (units ( unknown) date) (3.5-5.0) g/dL unknown) (unknown) (no (unknown) (unknown) Albumin/Globulin (units (unknown) date) Ratio 1.9 unknown) (1.0-2.8) (unknown) (no (unknown) (unknown) Alkaline (units (unkno wn) date) Phosphatase 55 unknown) (38-126) U/L (unknown) (no (unknown) (unknown) Allergy/AdvReac (units (unknown) date) Type Severity unknown) Reaction Status Date / Time (unknown) (no (unknown) (unknown) Antibiotics) (units (u nknown) date) unknown) (unknown) (no (unknown) (unknown) Approved by: Paul Vossunits (unknown) date) Concetta Aranda on unknown) 07/07/2021 at 14:59 ? (unknown) (no (unknown) (unknown) Approved by: Paul Vossunits (unknown) date) Concetta Aranda on unknown) 07/07/2021 at 15:05 ? (unknown) (no (unknown) (unknown) BUN 19 H (7-17) (units (unknown) date) mg/dL unknown) (unknown) (no (unknown) (unknown) BUN/Creatinine (units (unknown) date) Ratio 20.7 unknown) (6-22) (unknown) (no (unknown) (unknown) Baso # (Auto) 0 (units (unknown) date) (0-100) /uL unknown) (unknown) (no (unknown) (unknown) Baso % (Auto) 0.2 (units (unknown) date) (0-2) % unknown) (unknown) (no (unknown) (unknown) Bedside Urine (units ( unknown) date) Bilirubin - unknown) Negative (unknown) (no (unknown) (unknown) Bedside Urine (units ( unknown) date) Glucose Negative unknown) (unknown) (no (unknown) (unknown) Bedside Urine (units ( unknown) date) Ketone - unknown) Negative (unknown) (no (unknown) (unknown) Bedside Urine (units ( unknown) date) Leukocytes - unknown) Negative (unknown) (no (unknown) (unknown) Bedside Urine (units ( unknown) date) Nitrite - unknown) Negative (unknown) (no (unknown) (unknown) Bedside Urine (units ( unknown) date) Occult Blood - unknown) Negative (unknown) (no (unknown) (unknown) Bedside Urine (units ( unknown) date) Protein - unknown) Negative (unknown) (no (unknown) (unknown) Bedside Urine (units ( unknown) date) Urobilinogen - unknown) Negative (unknown) (no (unknown) (unknown) Bedside Urine pH (units (unknown) date) 7.5 unknown) (unknown) (no (unknown) (unknown) Blood Pressure (units (unknown) date) 143/72 H 07/07/21 unknown) 12:48 (unknown) (no (unknown) (unknown) Blood Pressure (units (unknown) date) 143/72 H unknown) (unknown) (no (unknown) (unknown) Bones:? No (units (unk nown) date) fractures or unknown) dislocations.? There is loss of normal cervical (unknown) (no (unknown) (unknown) Brain:? No midline (units (unknown) date) shift.? No unknown) intracranial masses or hemorrhage.? Wood-white (unknown) (no (unknown) (unknown) C-Reactive Protein (units (unknown) date) < 0.5 (<1.0) unknown) mg/dL (unknown) (no (unknown) (unknown) CBC Auto Diff (units ( unknown) date) [Complete Blood unknown) Count AUTO DIFF] Stat (unknown) (no (unknown) (unknown) CMP [Comprehensive (units (unknown) date) Metabolic Panel] unknown) Stat (unknown) (no (unknown) (unknown) COMPARISON:? None. (units (unknown) date) unknown) (unknown) (no (unknown) (unknown) CRP [C-Reactive (units (unknown) date) Protein Quant] Stat unknown) (unknown) (no (unknown) (unknown) CSF spaces:? Basal (units (unknown) date) cisterns are unknown) patent.? No extra-axial fluid collections.? (unknown) (no (unknown) (unknown) CT - cervical (units ( unknown) date) spine: unknown) (unknown) (no (unknown) (unknown) CT cervical spine (units (unknown) date) wo con Stat unknown) (unknown) (no (unknown) (unknown) CT head/brain wo (units (unknown) date) con Stat unknown) (unknown) (no (unknown) (unknown) CT scan - head: (units (unknown) date) unknown) (unknown) (no (unknown) (unknown) Calcium 9.2 (units ( unknown) date) (8.4-10.2) mg/dL unknown) (unknown) (no (unknown) (unknown) Carbon Dioxide (units (unknown) date) 32 (22-32) mmol/L unknown) (unknown) (no (unknown) (unknown) Cardio: denies (units (unknown) date) chest pain, unknown) palpitations, edema (unknown) (no (unknown) (unknown) Cardiovascular: (units (unknown) date) regular rate and unknown) rhythm, no peripheral edema, warm extremities (unknown) (no (unknown) (unknown) Chief Complaint: (units (unknown) date) Neck Pain/Injury unknown) (unknown) (no (unknown) (unknown) Chloride 100 (units (unknown) date) (98-107) mmol/L unknown) (unknown) (no (unknown) (unknown) Clinical (units (unkno wn) date) Impression: unknown) (unknown) (no (unknown) (unknown) Course (units (unkno wn) date) unknown) (unknown) (no (unknown) (unknown) Creatinine 0.92 (units (unknown) date) (0.52-1.04) mg/dL unknown) (unknown) (no (unknown) (unknown) : 1995 (units (unknown) date) Acct:[id number] unknown) (unknown) (no (unknown) (unknown) Departure (units (unkn own) date) unknown) (unknown) (no (unknown) (unknown) Dictated by: Paul (units (unknown) date) Concetta Aranda on unknown) 07/07/2021 at 14:58 ? ? (unknown) (no (unknown) (unknown) Dictated by: Paul (units (unknown) date) Concetta Aranda on unknown) 07/07/2021 at 15:00 ? ? 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 I wish you the (unknown) (no (unknown) (unknown) Eos # (Auto) 0 (units (unknown) date) (0-450) /uL unknown) (unknown) (no (unknown) (unknown) Eos % (Auto) 0.1 (units (unknown) date) L (2-4) % unknown) (unknown) (no (unknown) (unknown) Erythrocyte (units (un known) date) Sedimentation Rate unknown) Stat (unknown) (no (unknown) (unknown) Esterase (units (o wn) date) unknown) (unknown) (no (unknown) (unknown) Estimated GFR > (units (unknown) date) 60 (>60) mL/min unknown) (unknown) (no (unknown) (unknown) Evidence suggests (units (unknown) date) that opiates have unknown) adverse effects on chronic pain syndromes. (unknown) (no (unknown) (unknown) Exam (units (o wn) date) unknown) (unknown) (no (unknown) (unknown) Exam Narrative: (units (unknown) date) unknown) (unknown) (no (unknown) (unknown) Eyes: denies (units (u nknown) date) visual changes, eye unknown) pain (unknown) (no (unknown) (unknown) Eyes: pupils equal (units (unknown) date) round and reactive, unknown) EOMI, conjunctiva normal (unknown) (no (unknown) (unknown) FINDINGS:? (units (unk n) date) unknown) (unknown) (no (unknown) (unknown) G62.9 - (units (o ) date) Polyneuropathy, unknown) unspecified (unknown) (no (unknown) (unknown) GI: abdomen soft, (units (unknown) date) nontender to unknown) palpation, nondistended, no masses, no exquisite (unknown) (no (unknown) (unknown) GI: denies (units (unk n) date) abdominal pain, unknown) nausea, vomiting, or diarrhea (unknown) (no (unknown) (unknown) : denies (units (unk n) date) dysuria, hematuria, unknown) urinary retention, frequency or incontinence (unknown) (no (unknown) (unknown) Gabapentin (units (unk n) date) (Gabapentin 300 Mg unknown) Capsule) 300 mg PO NOW ONE (unknown) (no (unknown) (unknown) General (units (o wn) date) unknown) (unknown) (no (unknown) (unknown) General: (units (o wn) date) cooperative, unknown) comfortable, in no acute distress, well developed and well (unknown) (no (unknown) (unknown) General: denies (units (unknown) date) fever, chills, unknown) malaise, sweats, endorses daily and crippling (unknown) (no (unknown) (unknown) GenericComposite[P (units (unknown) date) lt Count 290 unknown) (150-400) X10^3/uL ] (unknown) (no (unknown) (unknown) GenericComposite[R (units (unknown) date) BC 4.27 unknown) (4.0-5.2) X10^6/uL ] (unknown) (no (unknown) (unknown) GenericComposite[W (units (unknown) date) BC 13.1 H unknown) (4.5-11.0) X10^3/uL ] (unknown) (no (unknown) (unknown) Giant cell (units (unk nown) date) arteritis unknown) considered, but thought unlikely given lack of unilateral (unknown) (no (unknown) (unknown) Globulin 2.5 (units (unknown) date) (1.7-4.1) g/dL unknown) (unknown) (no (unknown) (unknown) Glucose 142 H (units (unknown) date) (70-100) mg/dL unknown) (unknown) (no (unknown) (unknown) HPI - Neck (units (unk nown) date) Pain/Injury unknown) (unknown) (no (unknown) (unknown) HPI Narrative: (units (unknown) date) unknown) (unknown) (no (unknown) (unknown) HTN Emergency (units ( unknown) date) considered, but unknown) thought unlikely given normal vitals (unknown) (no (unknown) (unknown) Hct 40.4 (units (unkn own) date) (36-46) % unknown) (unknown) (no (unknown) (unknown) Head/Neck: denies (units (unknown) date) headache, neck unknown) pain, dizziness (unknown) (no (unknown) (unknown) Head: atraumatic, (units (unknown) date) symmetrical facial unknown) expressions (unknown) (no (unknown) (unknown) Hgb 13.6 (units (unkn own) date) (12.0-16.0) g/dL unknown) (unknown) (no (unknown) (unknown) History of Present (units (unknown) date) Illness unknown) (unknown) (no (unknown) (unknown) IMPRESSION:? (units (u nknown) date) unknown) (unknown) (no (unknown) (unknown) IMPRESSION:? Loss (units (unknown) date) of normal cervical unknown) lordosis.? No fracture. (unknown) (no (unknown) (unknown) INDICATIONS:? head (units (unknown) date) and neck pain x3 unknown) weeks (unknown) (no (unknown) (unknown) Image quality:? (units (unknown) date) Excellent.? unknown) (unknown) (no (unknown) (unknown) Imaging Data (units (u nknown) date) unknown) (unknown) (no (unknown) (unknown) Independently (units ( unknown) date) reviewed vitals unknown) signs and nursing notes. (unknown) (no (unknown) (unknown) Initial Vital (units ( unknown) date) Signs unknown) (unknown) (no (unknown) (unknown) Initial Vital (units ( unknown) date) Signs: unknown) (unknown) (no (unknown) (unknown) Instructions: (units ( unknown) date) Fibromyalgia unknown) (Alternative Therapy), Complex Regional Pain (unknown) (no (unknown) (unknown) Ketorolac (units (unkn own) date) Tromethamine unknown) (Ketorolac 30 Mg/Ml Vial) 15 mg IM NOW ONE (unknown) (no (unknown) (unknown) Lab Data (units (unkno wn) date) unknown) (unknown) (no (unknown) (unknown) Labs: (units (unkno wn) date) unknown) (unknown) (no (unknown) (unknown) Latuda 2 months (units (unknown) date) ago cold turkey unknown) because she ran out and did not have a (unknown) (no (unknown) (unknown) Lidocaine (units (unkn own) date) (Lidocaine Patch 1 unknown) Each Adh..Patch) 1 each TOP NOW ONE (unknown) (no (unknown) (unknown) Lymph # (Auto) (units (unknown) date) 800 L (1132-3596) unknown) /uL (unknown) (no (unknown) (unknown) Lymph % (Auto) (units (unknown) date) 6.5 L (25-40) % unknown) (unknown) (no (unknown) (unknown) MCH 31.9 (units (unkn own) date) (26-34) PG unknown) (unknown) (no (unknown) (unknown) MCHC 33.7 (units (unk nown) date) (30-36) % unknown) (unknown) (no (unknown) (unknown) MCV 94.6 (units (unkn own) date) (80-100) fL unknown) (unknown) (no (unknown) (unknown) MDM - Neck (units (unk nown) date) Pain/Injury unknown) (unknown) (no (unknown) (unknown) MDM Narrative (units ( unknown) date) unknown) (unknown) (no (unknown) (unknown) MSK: denies joint (units (unknown) date) pain, muscle unknown) weakness (unknown) (no (unknown) (unknown) MSK: moves all (units ( unknown) date) extremities, unknown) ambulatory w/steady gait, neurovascularly intact, no (unknown) (no (unknown) (unknown) Medical decision (units (unknown) date) making narrative: unknown) (unknown) (no (unknown) (unknown) Meningitis (units (unkn own) date) considered, but unknown) thought unlikely given lack of Miyaki'sCass's (unknown) (no (unknown) (unknown) Methocarbamol (units ( unknown) date) (Methocarbamol 500 unknown) Mg Tablet) 750 mg PO NOW ONE (unknown) (no (unknown) (unknown) Mode of arrival: (units (unknown) date) Ambulatory unknown) (unknown) (no (unknown) (unknown) [place] # (Auto) 200 (units (unknown) date) (0-900) /uL unknown) (unknown) (no (unknown) (unknown) [place] % (Auto) 1.7 (units (unknown) date) L (3-14) % unknown) (unknown) (no (unknown) (unknown) Mouth/Throat: (units ( unknown) date) uvula midline, unknown) moist mucus membranes (unknown) (no (unknown) (unknown) Narrative (units (unkn own) date) unknown) (unknown) (no (unknown) (unknown) Narrative: (units (unk nown) date) unknown) (unknown) (no (unknown) (unknown) Neck: supple, (units ( unknown) date) atraumatic, without unknown) lymphadenopathy. Patient has left trapezius (unknown) (no (unknown) (unknown) Neuro: denies (units ( unknown) date) numbness, tingling unknown) (unknown) (no (unknown) (unknown) Neuro: normal (units ( unknown) date) speech and unknown) cognition, A+O x3, normal tone (unknown) (no (unknown) (unknown) Neut # (Auto) (units ( unknown) date) 01983 H unknown) (5282-2358) /uL (unknown) (no (unknown) (unknown) Neut % (Auto) (units ( unknown) date) 91.5 H (50-75) % unknown) (unknown) (no (unknown) (unknown) New (units (unkno wn) date) unknown) (unknown) (no (unknown) (unknown) Noncontrast 3 mm (units (unknown) date) thick sections unknown) acquired from the skull base to the T4 level.? (unknown) (no (unknown) (unknown) Noncontrast 4.5 mm (units (unknown) date) thick angled axial unknown) sections acquired from the foramen magnum (unknown) (no (unknown) (unknown) Nose: nares (units (un known) date) patent, no unknown) rhinorrhea (unknown) (no (unknown) (unknown) Ordered: (units (unkno wn) date) unknown) (unknown) (no (unknown) (unknown) Orders (units (unkno wn) date) unknown) (unknown) (no (unknown) (unknown) Other serious (units (u nknown) date) diagnoses unknown) considered unlikely given lack of red flag findings such (unknown) (no (unknown) (unknown) Oxycodone/Acetamino (units (unknown) date) phen unknown) (Oxycodone/Acetamin ophen 5/325 Tablet) 1 tab PO NOW ONE (unknown) (no (unknown) (unknown) PROCEDURE:? CT (units (unknown) date) CERVICAL SPINE WO unknown) CON (unknown) (no (unknown) (unknown) PROCEDURE:? CT (units (unknown) date) HEAD/BRAIN WO CON unknown) (unknown) (no (unknown) (unknown) Patient (units (unkno wn) date) Disposition: Home unknown) (unknown) (no (unknown) (unknown) Patient History (units (unknown) date) unknown) (unknown) (no (unknown) (unknown) Patient has been (units (unknown) date) given strict return unknown) to ER precautions for any new or worsening (unknown) (no (unknown) (unknown) Patient is (units (unk nown) date) appropriate and unknown) amenable to discharge home. Vital signs are stable (unknown) (no (unknown) (unknown) Patient states she (units (unknown) date) does not want to unknown) start taking Latuda again because she did (unknown) (no (unknown) (unknown) Patient: (units (unkno wn) date) brittni [address] unknown) MR#: [id number] (unknown) (no (unknown) (unknown) Penicillins (units (un known) date) Allergy Verified unknown) 07/07/21 12:53 (unknown) (no (unknown) (unknown) Percocet, (units (unkn own) date) lidocaine patch for unknown) her pain today. She requested a prescription for (unknown) (no (unknown) (unknown) Peripheral (units (unk nown) date) neuropathy unknown) (unknown) (no (unknown) (unknown) Please see how the (units (unknown) date) gabapentin helps unknown) your pain, there are other interventions (unknown) (no (unknown) (unknown) Please try and (units (unknown) date) stay active as your unknown) body allows, this will help release (unknown) (no (unknown) (unknown) Potassium 4.6 (units (unknown) date) (3.4-5.1) mmol/L unknown) (unknown) (no (unknown) (unknown) Test (units (unknown) date) Results Negative unknown) (unknown) (no (unknown) (unknown) is (units (u nknown) date) negative, CRP ESR unknown) are not elevated. (unknown) (no (unknown) (unknown) Prescriptions: (units (unknown) date) unknown) (unknown) (no (unknown) (unknown) Psych: mental (units ( unknown) date) status is grossly unknown) normal, congruent mood, normal affect, pleasant (unknown) (no (unknown) (unknown) Pulse Oximetry 98 (units (unknown) date) 07/07/21 12:48 unknown) (unknown) (no (unknown) (unknown) Pulse Oximetry 98 (units (unknown) date) unknown) (unknown) (no (unknown) (unknown) Pulse Rate 65 (units (unknown) date) 07/07/21 12:48 unknown) (unknown) (no (unknown) (unknown) Pulse Rate 65 (units ( unknown) date) unknown) (unknown) (no (unknown) (unknown) Qualifiers: (units (un known) date) unknown) (unknown) (no (unknown) (unknown) RDW 13.5 (units (unkn own) date) (11.6-14.8) % unknown) (unknown) (no (unknown) (unknown) Referrals: (units (unk nown) date) unknown) (unknown) (no (unknown) (unknown) Related Data (units (u nknown) date) unknown) (unknown) (no (unknown) (unknown) Respiratory Rate (units (unknown) date) 16 07/07/21 12:48 unknown) (unknown) (no (unknown) (unknown) Respiratory Rate (units (unknown) date) 16 unknown) (unknown) (no (unknown) (unknown) Respiratory: (units (u nknown) date) denies dyspnea, unknown) cough, orthopnea (unknown) (no (unknown) (unknown) Respiratory: (units (u nknown) date) normal effort, able unknown) to speak in complete sentences, no audible (unknown) (no (unknown) (unknown) Result diagrams: (units (unknown) date) unknown) (unknown) (no (unknown) (unknown) Review of Systems (units (unknown) date) unknown) (unknown) (no (unknown) (unknown) Sagittal (units (unkno wn) date) unknown) (unknown) (no (unknown) (unknown) Signed By: (units (unk nown) date) unknown) (unknown) (no (unknown) (unknown) Sinuses:? (units (unkn own) date) Visualized sinuses unknown) and mastoids are clear.? (unknown) (no (unknown) (unknown) Skin: brisk (units (un known) date) capillary refill, unknown) no rash, no erythema (unknown) (no (unknown) (unknown) Skin: denies rash, (units (unknown) date) itching, skin unknown) lesions or other (unknown) (no (unknown) (unknown) Skull and face:? (units (unknown) date) Calvarium and unknown) visualized facial bones are intact, without (unknown) (no (unknown) (unknown) Smoking Status: (units (unknown) date) Current every day unknown) smoker (unknown) (no (unknown) (unknown) Smoking Status: (units (unknown) date) Current every day unknown) smoker (unknown) (no (unknown) (unknown) Social History (units (unknown) date) (Reviewed 07/07/21 unknown) @ 15:40 by Latonya Mishra [facility]) (unknown) (no (unknown) (unknown) Sodium 138 (units (u nknown) date) (137-145) mmol/L unknown) (unknown) (no (unknown) (unknown) Soft tissues:? (units (unknown) date) Prevertebral soft unknown) tissues are normal in thickness.? No (unknown) (no (unknown) (unknown) Stated Complaint: (units (unknown) date) NECK PAIN TINGLING unknown) OF HAND AND ARMS TIRED (unknown) (no (unknown) (unknown) Subarachnoid (units (u nknown) date) hemorrhage, but unknown) unlikely as patient denies sudden onset of pain, (unknown) (no (unknown) (unknown) Substance Use (units ( unknown) date) Type: does not use unknown) (unknown) (no (unknown) (unknown) Sulfa (Sulfonamide (units (unknown) date) Allergy Verified unknown) 07/07/21 12:53 (unknown) (no (unknown) (unknown) Syndrome, DI for (units (unknown) date) Neck Pain unknown) (unknown) (no (unknown) (unknown) TECHNIQUE:? (units (un known) date) unknown) (unknown) (no (unknown) (unknown) Temperature 98 F (units (unknown) date) 07/07/21 12:48 unknown) (unknown) (no (unknown) (unknown) Temperature 98 F (units (unknown) date) unknown) (unknown) (no (unknown) (unknown) This is a (units (unkno wn) date) 26-year-old female unknown) presents to the emergency department complaining of (unknown) (no (unknown) (unknown) This is a (units (unkn own) date) 26-year-old female unknown) who presents to the emergency department (unknown) (no (unknown) (unknown) This is treated (units (unknown) date) with multi unknown) modalities including SSRIs, complementary therapies (unknown) (no (unknown) (unknown) Tan Nguyen (units (unknown) date) MD Jamison unknown) [Physician] - (unknown) (no (unknown) (unknown) Time Seen by (units (u nknown) date) Provider: 07/07/21 unknown) 14:42 (unknown) (no (unknown) (unknown) Total Bilirubin (units (unknown) date) 0.2 (0.2-1.3) unknown) mg/dL (unknown) (no (unknown) (unknown) Total Protein (units ( unknown) date) 7.2 (6.3-8.2) unknown) g/dL (unknown) (no (unknown) (unknown) Tylenol and states (units (unknown) date) none of that was unknown) very helpful. Patient endorses lidocaine (unknown) (no (unknown) (unknown) Tylenol, (units (unkno wn) date) gabapentin, and a unknown) lidocaine patch in the emergency department she (unknown) (no (unknown) (unknown) UA Complete (units (un known) date) [Urinalysis and unknown) Microscopic] Stat (unknown) (no (unknown) (unknown) Urine Culture Stat (units (unknown) date) unknown) (unknown) (no (unknown) (unknown) Urine Specific (units (unknown) date) [place] 1.010 unknown) (unknown) (no (unknown) (unknown) Ventricles (units (unk nown) date) unknown) (unknown) (no (unknown) (unknown) Visualized (units (unk nown) date) superior ribs are unknown) intact.? (unknown) (no (unknown) (unknown) Vital Signs (units (un known) date) unknown) (unknown) (no (unknown) (unknown) Vital signs: (units (u nknown) date) unknown) (unknown) (no (unknown) (unknown) Voltaren gel, and (units (unknown) date) Robaxin. Encourage unknown) patient to stay active, use the (unknown) (no (unknown) (unknown) [Embedded Image (units (unknown) date) Not Available] unknown) (unknown) (no (unknown) (unknown) activity, stay (units (unknown) date) hydrated, eat food unknown) with ibuprofen so that you do not get an (unknown) (no (unknown) (unknown) alcohol intake (units (unknown) date) frequency: a few unknown) times a week (unknown) (no (unknown) (unknown) already has (units (un known) date) opiates and muscle unknown) relaxers at home but when she was offered (unknown) (no (unknown) (unknown) and cooperative (units (unknown) date) unknown) (unknown) (no (unknown) (unknown) and coronal (units (un known) date) reformats were then unknown) constructed.? For radiation dose reduction, the (unknown) (no (unknown) (unknown) another (units (unkno wn) date) prescription of unknown) steroids, muscle relaxers, and morphine tablets without (unknown) (no (unknown) (unknown) any other testing (units (unknown) date) completed. Patient unknown) states that she has had 2 urine test this (unknown) (no (unknown) (unknown) appointment. Let (units (unknown) date) them know you were unknown) seen in the Emergency Department and that we (unknown) (no (unknown) (unknown) are all normal (units (unknown) date) without suspicion unknown) for abnormality. Great news! (unknown) (no (unknown) (unknown) are normal in size (units (unknown) date) and shape.? unknown) (unknown) (no (unknown) (unknown) asked that you be (units (unknown) date) seen for follow-up. unknown) We will electronically transmit a record (unknown) (no (unknown) (unknown) best, please go to (units (unknown) date) your appointment on unknown) July 16, follow-up with your primary (unknown) (no (unknown) (unknown) brain/head/C-spine. (units (unknown) date) CT head shows no unknown) acute intracranial abnormality, CT C-spine (unknown) (no (unknown) (unknown) care provider for a (units (unknown) date) referral to unknown) physical therapy and /or advanced imaging if you (unknown) (no (unknown) (unknown) chills, (units (unkno wn) date) diaphoresis, unknown) abdominal pain, states that she threw up yesterday a.m. but (unknown) (no (unknown) (unknown) cognitive (units (unkn own) date) dysfunction, and unknown) peripheral neuropathy. These are all symptoms of (unknown) (no (unknown) (unknown) complaining of (units (unknown) date) left-sided neck unknown) pain for the last 3 weeks, peripheral neuropathy (unknown) (no (unknown) (unknown) concerning (units (unk nown) date) symptoms, such as unknown) [fever greater than 101F, chills, worsening pain, (unknown) (no (unknown) (unknown) days, and oxycodone (units (unknown) date) with muscle unknown) relaxers. She states that it did not help much, (unknown) (no (unknown) (unknown) declined and (units (u nknown) date) states that we are unknown) not doing anything for her. Or there was a (unknown) (no (unknown) (unknown) denies any (units (unk nown) date) diarrhea, rash unknown) isolated pain in 1 area. Patient states that she (unknown) (no (unknown) (unknown) diclofenac sodium (units (unknown) date) 1 % topical gel 2 g unknown) TOPICAL QID #100 g 07/07/21 (unknown) (no (unknown) (unknown) docaine patches a (units (unknown) date) little from unknown) oxycodone. She was given Toradol, methocarbamol, (unknown) (no (unknown) (unknown) elevated, patient (units (unknown) date) states that unknown) lidocaine patches were the most helpful in she (unknown) (no (unknown) (unknown) establish care (units (unknown) date) with one of the unknown) [facility] primary care providers. (unknown) (no (unknown) (unknown) evaluation. (units (un known) date) Headache unknown) considerations include, but not limited to: (unknown) (no (unknown) (unknown) fatigue (units (unkno wn) date) unknown) (unknown) (no (unknown) (unknown) feels depressed, (units (unknown) date) she has a unknown) psychiatrist appointment on for July 16, 2021. (unknown) (no (unknown) (unknown) fibromyalgia (units (u nknown) date) symptoms. Opted to unknown) rule out tumor or fracture with a CT (unknown) (no (unknown) (unknown) fibromyalgia which (units (unknown) date) is stemming from unknown) undertreated neurochemicals your brain. (unknown) (no (unknown) (unknown) findings, pain in (units (unknown) date) advent, vision unknown) change (unknown) (no (unknown) (unknown) following (units (unkn own) date) unknown) (unknown) (no (unknown) (unknown) from her neck. (units (unknown) date) She went to [facility] unknown) emergency, was prescribed steroids for 5 (unknown) (no (unknown) (unknown) gabapentin 300 mg (units (unknown) date) capsule 600 mg PO unknown) TID 14 Days #84 caplet 07/07/21 (unknown) (no (unknown) (unknown) groomed (units (unkno wn) date) unknown) (unknown) (no (unknown) (unknown) hand (units (unkno wn) date) unknown) (unknown) (no (unknown) (unknown) hematomas.? No (units (unknown) date) apical unknown) pneumothoraces.? (unknown) (no (unknown) (unknown) in all of her (units ( unknown) date) extremities, unknown) fatigue, depressed mood, and difficulty completing (unknown) (no (unknown) (unknown) inability to turn (units (unknown) date) her head, to return unknown) to the emergency department for another (unknown) (no (unknown) (unknown) include prozac and (units (unknown) date) gabapentin if not unknown) improved on prozac. Your CT brain shows no (unknown) (no (unknown) (unknown) incontinence, (units ( unknown) date) dizziness, vision unknown) changes. (unknown) (no (unknown) (unknown) interface is (units (u nknown) date) normal.? unknown) (unknown) (no (unknown) (unknown) lesions.? (units (unkn own) date) unknown) (unknown) (no (unknown) (unknown) lidocaine 5 % (units ( unknown) date) topical patch 1 unknown) patch TOPICAL BID PRN #15 ea 07/07/21 (unknown) (no (unknown) (unknown) like cognitive (units (unknown) date) behavioral therapy, unknown) other oral medications which may work for (unknown) (no (unknown) (unknown) like exercise, (units (unknown) date) yoga, acupuncture, unknown) talk therapy, and first line medications (unknown) (no (unknown) (unknown) likely (units (unkno wn) date) contributing to her unknown) mild leukocytosis of 13.1. CRP and ESR were not (unknown) (no (unknown) (unknown) lordosis.? (units (unk nown) date) unknown) (unknown) (no (unknown) (unknown) matter (units (unkno wn) date) unknown) (unknown) (no (unknown) (unknown) medications as (units (unknown) date) needed, in addition unknown) to Tylenol and ibuprofen, heat and ice is (unknown) (no (unknown) (unknown) medications for (units (unknown) date) this neck pain and unknown) neuropathy without any improvement in her (unknown) (no (unknown) (unknown) medications or (units (unknown) date) stopping them unknown) altogether. Please continue taking the Prozac as (unknown) (no (unknown) (unknown) methocarbamol 750 (units (unknown) date) mg tablet 750 mg PO unknown) Q8H PRN #20 tab 07/07/21 (unknown) (no (unknown) (unknown) muscle relaxers as (units (unknown) date) necessary for unknown) muscle spasms. Please use heat, light (unknown) (no (unknown) (unknown) muscle tension to (units (unknown) date) palpation, no rash, unknown) no masses no tenderness over C-spine (unknown) (no (unknown) (unknown) mutual decision (units (unknown) date) making between unknown) patient and myself to start her on gabapentin (unknown) (no (unknown) (unknown) no other vomiting. (units (unknown) date) States that she unknown) had a negative COVID test at home, she (unknown) (no (unknown) (unknown) none of those have (units (unknown) date) helped at all. unknown) Patient denies any lower extremity weakness, (unknown) (no (unknown) (unknown) normal cervical (units (unknown) date) curvature but no unknown) fracture, stenosis, masses, and soft tissues (unknown) (no (unknown) (unknown) not think it (units (u nknown) date) helped her. unknown) Patient has been using lidocaine patches which she (unknown) (no (unknown) (unknown) not worst of life, (units (unknown) date) or neck pain, CT unknown) ruled this out. (unknown) (no (unknown) (unknown) of today's note if (units (unknown) date) your PCP is in our unknown) system (unknown) (no (unknown) (unknown) on repeat (units (unkn own) date) examination is unknown) unremarkable. Patient has been informed of results. (unknown) (no (unknown) (unknown) pain started on (units (unknown) date) 06/20/2021 with unknown) neuropathy symptoms down into her fingertips (unknown) (no (unknown) (unknown) pain, and has (units ( unknown) date) tried opiates, unknown) muscle relaxers, lidocaine patches, incident (unknown) (no (unknown) (unknown) paravertebral (units ( unknown) date) unknown) (unknown) (no (unknown) (unknown) patches as being (units (unknown) date) the most helpful. unknown) She states she stopped taking Latuda cold (unknown) (no (unknown) (unknown) patient (units (unkno wn) date) unknown) (unknown) (no (unknown) (unknown) persistent (units (unk nown) date) vomiting or other unknown) bothersome symptoms] (unknown) (no (unknown) (unknown) prescriber. She (units (unknown) date) states that she unknown) still is taking Prozac 20 mg daily, she states (unknown) (no (unknown) (unknown) questions and (units ( unknown) date) concerns answered unknown) at this time. 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 Patient states that she stop taking (unknown) (no (unknown) (unknown) size.? (units (unkno wn) date) unknown) (unknown) (no (unknown) (unknown) something less (units (unknown) date) strong and was unknown) given tramadol, gabapentin, lidocaine patches, (unknown) (no (unknown) (unknown) starting (units (unkno wn) date) approximately 2 unknown) weeks ago. Patient states that her left-sided neck (unknown) (no (unknown) (unknown) states are the (units (unknown) date) most helpful, unknown) taking morphine tabs, muscle relaxers, and states (unknown) (no (unknown) (unknown) states that the (units (unknown) date) morphine was too unknown) strong for her, she had some relief from li (unknown) (no (unknown) (unknown) suspicious (units (unk nown) date) unknown) (unknown) (no (unknown) (unknown) symptoms. Patient (units (unknown) date) understands to unknown) follow up closely with outpatient providers as (unknown) (no (unknown) (unknown) symptoms. She has (units (unknown) date) been afebrile, unknown) completed 2 courses of steroids, this is (unknown) (no (unknown) (unknown) tenderness with (units (unknown) date) exam, without unknown) guarding or rebound. (unknown) (no (unknown) (unknown) that she has been (units (unknown) date) to would be unknown) emergency department 2 times for this neck pain (unknown) (no (unknown) (unknown) thinners, etc. (units (unknown) date) unknown) (unknown) (no (unknown) (unknown) to the (units (unkno wn) date) unknown) (unknown) (no (unknown) (unknown) tramadol 50 mg (units (unknown) date) tablet (Ultram) 50 unknown) mg PO BID PRN #20 tab 07/07/21 (unknown) (no (unknown) (unknown) turkey 2 months (units (unknown) date) ago, she is on 20 unknown) mg of Prozac daily, has been using all these (unknown) (no (unknown) (unknown) ulcer. I wish you (units (unknown) date) the best with your unknown) follow-up. (unknown) (no (unknown) (unknown) until she sees her (units (unknown) date) psychiatrist in 9 unknown) days to help treat her for her likely (unknown) (no (unknown) (unknown) vancomycin AdvReac (units (unknown) date) Redness of unknown) Verified 07/07/21 12:53 (unknown) (no (unknown) (unknown) vertex, with (units (u nknown) date) coronal and unknown) sagittal reformats.? For radiation dose reduction, the (unknown) (no (unknown) (unknown) was used:? (units (unk nown) date) automated exposure unknown) control, adjustment of mA and/or kV according to (unknown) (no (unknown) (unknown) weakness (units (unkno wn) date) unknown) (unknown) (no (unknown) (unknown) week for (units (unknown) date) and they were both unknown) negative. Patient endorses a headache, (unknown) (no (unknown) (unknown) wheezing, stridor, (units (unknown) date) or rales. No unknown) retractions or tachypnea. (unknown) (no (unknown) (unknown) you are, take (units ( unknown) date) ibuprofen or unknown) Tylenol with food and water as needed for your pain, (unknown) (no (unknown) (unknown) you, and there is (units (unknown) date) no evidence that unknown) opioids are effective treatment of this. Result panel 10 (unknown) (no date) (unknown) (unknown) 0.2 E.U./dL (unkn own) (unknown) (no date) (unknown) (unknown) 1.015 (units (unkn own) unknown) (unknown) (no date) (unknown) (unknown) 7.5 (units (unkn own) unknown) (unknown) (no date) (unknown) (unknown) CLOUDY (units (unkn own) unknown) (unknown) (no date) (unknown) (unknown) NEGATIVE (units (unkn own) unknown) (unknown) (no date) (unknown) (unknown) NEGATIVE g/dL (unkn own) (unknown) (no date) (unknown) (unknown) TRACE-LYSED (units (u nknown) unknown) (unknown) (no date) (unknown) (unknown) YELLOW (units (unkn own) unknown) Result panel 11 (unknown) (no date) (unknown) (unknown) 0-1 /HPF (units (unkn own) unknown) (unknown) (no date) (unknown) (unknown) 0-1/HPF (units (unkn own) unknown) (unknown) (no date) (unknown) (unknown) 0.2 E.U./dL (unkn own) (unknown) (no date) (unknown) (unknown) 1.015 (units (unkn own) unknown) (unknown) (no date) (unknown) (unknown) 4+ (units (unkn own) unknown) (unknown) (no date) (unknown) (unknown) 7.5 (units (unkn own) unknown) (unknown) (no date) (unknown) (unknown) CLOUDY (units (unkn own) unknown) (unknown) (no date) (unknown) (unknown) NEGATIVE (units (unkn own) unknown) (unknown) (no date) (unknown) (unknown) NEGATIVE g/dL (unkn own) (unknown) (no date) (unknown) (unknown) None Seen (units (unk nown) unknown) (unknown) (no date) (unknown) (unknown) TRACE-LYSED (units (u nknown) unknown) (unknown) (no date) (unknown) (unknown) YELLOW (units (unkn own) unknown) Result panel 12 (unknown) (no (unknown) (unknown) (no value) (units (unk nown) date) unknown) (unknown) (no (unknown) (unknown) Radiologist's (units ( unknown) date) Impression: unknown) (unknown) (no (unknown) (unknown) *Please continue (units (unknown) date) to take your unknown) regular medications as directed. 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> (unknown) (no (unknown) (unknown) 07/07/21 14:12 (units (unknown) date) unknown) (unknown) (no (unknown) (unknown) 07/07/21 1654 (units ( unknown) date) unknown) (unknown) (no (unknown) (unknown) 1 patch topical (units (unknown) date) BID PRN (Reason: unknown) pain) Qty: 15 0RF (unknown) (no (unknown) (unknown) 2 g topical QID (units (unknown) date) Qty: 100 0RF unknown) (unknown) (no (unknown) (unknown) 50 mg PO BID PRN (units (unknown) date) (Reason: pain) Qty: unknown) 20 0RF (unknown) (no (unknown) (unknown) 600 mg PO TID 14 (units (unknown) date) Days Qty: 84 0RF unknown) (unknown) (no (unknown) (unknown) 750 mg PO Q8H PRN (units (unknown) date) (Reason: muscle unknown) spasm, insomnia) Qty: 20 0RF (unknown) (no (unknown) (unknown) Allergies (units (unkn own) date) unknown) (unknown) (no (unknown) (unknown) Documented by: (units (unknown) date) unknown) (unknown) (no (unknown) (unknown) Documented by: (units (unknown) date) KWOYSKI unknown) (unknown) (no (unknown) (unknown) ED Orders (units (unkn own) date) unknown) (unknown) (no (unknown) (unknown) Emergency Report (units (unknown) date) unknown) (unknown) (no (unknown) (unknown) [facility] (units (unknown) date) [address] unknown) [place] [address] (unknown) (no (unknown) (unknown) Lab Results (units (un known) date) unknown) (unknown) (no (unknown) (unknown) Last Admin: (units (un known) date) 07/07/21 15:36 unknown) Dose: 300 mg (unknown) (no (unknown) (unknown) Last Admin: (units (un known) date) 07/07/21 15:36 unknown) Dose: 975 mg (unknown) (no (unknown) (unknown) Last Admin: (units (un known) date) 07/07/21 15:37 unknown) Dose: 1 each (unknown) (no (unknown) (unknown) Last Admin: (units (un known) date) 07/07/21 16:39 unknown) Dose: 15 mg (unknown) (no (unknown) (unknown) Last Admin: (units (un known) date) 07/07/21 16:40 unknown) Dose: 750 mg (unknown) (no (unknown) (unknown) Last Admin: (units (un known) date) 07/07/21 16:41 unknown) Dose: 1 tab (unknown) (no (unknown) (unknown) Point of Care (units ( unknown) date) Testing unknown) (unknown) (no (unknown) (unknown) Previous Rx's (units ( unknown) date) unknown) (unknown) (no (unknown) (unknown) Rx Instructions: (units (unknown) date) unknown) (unknown) (no (unknown) (unknown) Skin (units (unkno wn) date) unknown) (unknown) (no (unknown) (unknown) Stop: 07/07/21 (units (unknown) date) 15:19 unknown) (unknown) (no (unknown) (unknown) Stop: 07/07/21 (units (unknown) date) 16:31 unknown) (unknown) (no (unknown) (unknown) Stop: 07/07/21 (units (unknown) date) 16:32 unknown) (unknown) (no (unknown) (unknown) Urine Dip (units (unkn own) date) unknown) (unknown) (no (unknown) (unknown) Vital Signs - 8 hr (units (unknown) date) unknown) (unknown) (no (unknown) (unknown) [ ] New medication (units (unknown) date) written as a paper unknown) prescription (unknown) (no (unknown) (unknown) [ ] No new (units (unk nown) date) medications given unknown) (unknown) (no (unknown) (unknown) [ x] New (units (unkno wn) date) medication unknown) prescriptions sent to your pharmacy: [ [facility] (unknown) (no (unknown) (unknown) apply to single (units (unknown) date) elbow, wrist or unknown) hand; for hand includes palm/fingers/back of (unknown) (no (unknown) (unknown) leave on most (units ( unknown) date) painful area for up unknown) to 12 hrs (unknown) (no (unknown) (unknown) (no value) (units (unk nown) date) unknown) (unknown) (no (unknown) (unknown) 07/07/21 07/07/21 (units (unknown) date) 07/07/21 unknown) Range/Units (unknown) (no (unknown) (unknown) 14:12 14:12 16:24 (units (unknown) date) unknown) (unknown) (no (unknown) (unknown) diclofenac sodium (units (unknown) date) [Voltaren Arthritis unknown) Pain] 1 % gel (unknown) (no (unknown) (unknown) gabapentin 300 mg (units (unknown) date) capsule unknown) (unknown) (no (unknown) (unknown) lidocaine (units (unkn own) date) [Lidoderm] 5 % unknown) adhesive patch,medicated (unknown) (no (unknown) (unknown) methocarbamol 750 (units (unknown) date) mg tablet unknown) (unknown) (no (unknown) (unknown) tramadol [Ultram] (units (unknown) date) 50 mg tablet unknown) (unknown) (no (unknown) (unknown) 07/07/21 (units (unkno wn) date) unknown) (unknown) (no (unknown) (unknown) Acute neck pain, (units (unknown) date) Fatigue unknown) (unknown) (no (unknown) (unknown) Farson] (units (unkno wn) date) unknown) (unknown) (no (unknown) (unknown) Medication (units (unk nown) date) Instructions unknown) Recorded (unknown) (no (unknown) (unknown) Peripheral (units (unk nown) date) neuropathy type: unknown) polyneuropathy, unspecified Qualified Code(s): (unknown) (no (unknown) (unknown) acute intracranial (units (unknown) date) abnormality, your unknown) CT of your cervical spine shows loss of (unknown) (no (unknown) (unknown) as sudden onset, (units (unknown) date) increasing unknown) frequency, immunocompromise, systemic signs (fever, (unknown) (no (unknown) (unknown) chills, stiff (units ( unknown) date) neck, or rash), unknown) focal neurologic findings, trauma, blood (unknown) (no (unknown) (unknown) continue to have (units (unknown) date) symptoms. Please unknown) follow-up with a specialist before changing (unknown) (no (unknown) (unknown) instructed. (units (un known) date) Patient understands unknown) plan and agrees to discharge home. All (unknown) (no (unknown) (unknown) shows loss of (units ( unknown) date) cervical lordosis unknown) without any stenosis or acute abnormality. (unknown) (no (unknown) (unknown) sign, altered (units ( unknown) date) mental status or unknown) fever. (unknown) (no (unknown) (unknown) use the (units (unkno wn) date) medications as unknown) needed, in addition to Tylenol and ibuprofen, heat and (unknown) (no (unknown) (unknown) (Lidoderm) (units (unk nown) date) unknown) (unknown) (no (unknown) (unknown) (Voltaren (units (unkn own) date) Arthritis Pain) unknown) (unknown) (no (unknown) (unknown) *If you do not (units (unknown) date) have a primary care unknown) provider please contact [phone] to (unknown) (no (unknown) (unknown) *Please follow up (units (unknown) date) with your primary unknown) care provider in 2-3 days, call for an (unknown) (no (unknown) (unknown) *Return to (units (unk nown) date) Emergency unknown) Department if you should have any new, worsening or (unknown) (no (unknown) (unknown) *What to do: (units (u nknown) date) unknown) (unknown) (no (unknown) (unknown) *You have been (units (unknown) date) diagnosed with pain unknown) in multiple locations, fatigue, insomnia, (unknown) (no (unknown) (unknown) 07/07/21 14:12 (units (unknown) date) unknown) (unknown) (no (unknown) (unknown) 07/07/21 15:33 (units (unknown) date) unknown) (unknown) (no (unknown) (unknown) 07/07/21 16:24 (units (unknown) date) unknown) (unknown) (no (unknown) (unknown) 1. No acute (units (un known) date) intracranial unknown) abnormalities. (unknown) (no (unknown) (unknown) 12:48 (units (unkno wn) date) unknown) (unknown) (no (unknown) (unknown) 9601 (units (unkno wn) date) unknown) (unknown) (no (unknown) (unknown) ? (units (unkno wn) date) unknown) (unknown) (no (unknown) (unknown) ALT 53 H (<35) (units (unknown) date) IU/L unknown) (unknown) (no (unknown) (unknown) AST 26 (14-36) (units (unknown) date) IU/L unknown) (unknown) (no (unknown) (unknown) Acetaminophen (units ( unknown) date) (Acetaminophen 325 unknown) Mg Tablet) 975 mg PO NOW ONE (unknown) (no (unknown) (unknown) Activity (units (unkno wn) date) Restrictions/Additi unknown) onal Instructions: (unknown) (no (unknown) (unknown) Age/Sex: 26 / F (units (unknown) date) unknown) (unknown) (no (unknown) (unknown) Albumin 4.7 (units ( unknown) date) (3.5-5.0) g/dL unknown) (unknown) (no (unknown) (unknown) Albumin/Globulin (units (unknown) date) Ratio 1.9 unknown) (1.0-2.8) (unknown) (no (unknown) (unknown) Alkaline (units (unkno wn) date) Phosphatase 55 unknown) (38-126) U/L (unknown) (no (unknown) (unknown) Allergy/AdvReac (units (unknown) date) Type Severity unknown) Reaction Status Date / Time (unknown) (no (unknown) (unknown) Antibiotics) (units (u nknown) date) unknown) (unknown) (no (unknown) (unknown) Approved by: Paul (units (unknown) date) Concetta Aranda on unknown) 07/07/2021 at 14:59 ? (unknown) (no (unknown) (unknown) Approved by: Paul (units (unknown) date) Concetta Aranda on unknown) 07/07/2021 at 15:05 ? (unknown) (no (unknown) (unknown) BUN 19 H (units (unk nown) date) (7-17) mg/dL unknown) (unknown) (no (unknown) (unknown) BUN/Creatinine (units (unknown) date) Ratio 20.7 unknown) (6-22) (unknown) (no (unknown) (unknown) Baso # (Auto) 0 (units (unknown) date) (0-100) /uL unknown) (unknown) (no (unknown) (unknown) Baso % (Auto) 0.2 (units (unknown) date) (0-2) % unknown) (unknown) (no (unknown) (unknown) Bedside Urine (units ( unknown) date) Bilirubin - unknown) Negative (unknown) (no (unknown) (unknown) Bedside Urine (units ( unknown) date) Glucose Negative unknown) (unknown) (no (unknown) (unknown) Bedside Urine (units ( unknown) date) Ketone - unknown) Negative (unknown) (no (unknown) (unknown) Bedside Urine (units ( unknown) date) Leukocytes - unknown) Negative (unknown) (no (unknown) (unknown) Bedside Urine (units ( unknown) date) Nitrite - unknown) Negative (unknown) (no (unknown) (unknown) Bedside Urine (units ( unknown) date) Occult Blood - unknown) Negative (unknown) (no (unknown) (unknown) Bedside Urine (units ( unknown) date) Protein - unknown) Negative (unknown) (no (unknown) (unknown) Bedside Urine (units ( unknown) date) Urobilinogen - unknown) Negative (unknown) (no (unknown) (unknown) Bedside Urine pH (units (unknown) date) 7.5 unknown) (unknown) (no (unknown) (unknown) Blood Pressure (units (unknown) date) 143/72 H 07/07/21 unknown) 12:48 (unknown) (no (unknown) (unknown) Blood Pressure (units (unknown) date) 143/72 H unknown) (unknown) (no (unknown) (unknown) Bones:? No (units (unk nown) date) fractures or unknown) dislocations.? There is loss of normal cervical (unknown) (no (unknown) (unknown) Brain:? No midline (units (unknown) date) shift.? No unknown) intracranial masses or hemorrhage.? Wood-white (unknown) (no (unknown) (unknown) C-Reactive Protein (units (unknown) date) < 0.5 (<1.0) unknown) mg/dL (unknown) (no (unknown) (unknown) CBC Auto Diff (units ( unknown) date) [Complete Blood unknown) Count AUTO DIFF] Stat (unknown) (no (unknown) (unknown) CMP [Comprehensive (units (unknown) date) Metabolic Panel] unknown) Stat (unknown) (no (unknown) (unknown) COMPARISON:? None. (units (unknown) date) unknown) (unknown) (no (unknown) (unknown) CRP [C-Reactive (units (unknown) date) Protein Quant] Stat unknown) (unknown) (no (unknown) (unknown) CSF spaces:? Basal (units (unknown) date) cisterns are unknown) patent.? No extra-axial fluid collections.? (unknown) (no (unknown) (unknown) CT - cervical (units ( unknown) date) spine: unknown) (unknown) (no (unknown) (unknown) CT cervical spine (units (unknown) date) wo con Stat unknown) (unknown) (no (unknown) (unknown) CT head/brain wo (units (unknown) date) con Stat unknown) (unknown) (no (unknown) (unknown) CT scan - head: (units (unknown) date) unknown) (unknown) (no (unknown) (unknown) Calcium 9.2 (units ( unknown) date) (8.4-10.2) mg/dL unknown) (unknown) (no (unknown) (unknown) Carbon Dioxide (units (unknown) date) 32 (22-32) unknown) mmol/L (unknown) (no (unknown) (unknown) Cardio: denies (units (unknown) date) chest pain, unknown) palpitations, edema (unknown) (no (unknown) (unknown) Cardiovascular: (units (unknown) date) regular rate and unknown) rhythm, no peripheral edema, warm extremities (unknown) (no (unknown) (unknown) Chief Complaint: (units (unknown) date) Neck Pain/Injury unknown) (unknown) (no (unknown) (unknown) Chloride 100 (units (unknown) date) (98-107) mmol/L unknown) (unknown) (no (unknown) (unknown) Clinical (units (unkno wn) date) Impression: unknown) (unknown) (no (unknown) (unknown) Course (units (unkno wn) date) unknown) (unknown) (no (unknown) (unknown) Creatinine 0.92 (units (unknown) date) (0.52-1.04) mg/dL unknown) (unknown) (no (unknown) (unknown) : 1995 (units (unknown) date) Acct:[id number] unknown) (unknown) (no (unknown) (unknown) Departure (units (unkn own) date) unknown) (unknown) (no (unknown) (unknown) Dictated by: Paul (units (unknown) date) Concetta Aranda on unknown) 07/07/2021 at 14:58 ? ? (unknown) (no (unknown) (unknown) Dictated by: Paul (units (unknown) date) Concetta Aranda on unknown) 07/07/2021 at 15:00 ? ? 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 I wish you the (unknown) (no (unknown) (unknown) Eos # (Auto) 0 (units (unknown) date) (0-450) /uL unknown) (unknown) (no (unknown) (unknown) Eos % (Auto) 0.1 (units (unknown) date) L (2-4) % unknown) (unknown) (no (unknown) (unknown) Erythrocyte (units (un known) date) Sedimentation Rate unknown) Stat (unknown) (no (unknown) (unknown) Esterase (units (unkno wn) date) unknown) (unknown) (no (unknown) (unknown) Estimated GFR > (units (unknown) date) 60 (>60) mL/min unknown) (unknown) (no (unknown) (unknown) Evidence suggests (units (unknown) date) that opiates have unknown) adverse effects on chronic pain syndromes. (unknown) (no (unknown) (unknown) Exam (units (unkno wn) date) unknown) (unknown) (no (unknown) (unknown) Exam Narrative: (units (unknown) date) unknown) (unknown) (no (unknown) (unknown) Eyes: denies (units (u nknown) date) visual changes, eye unknown) pain (unknown) (no (unknown) (unknown) Eyes: pupils equal (units (unknown) date) round and reactive, unknown) EOMI, conjunctiva normal (unknown) (no (unknown) (unknown) FINDINGS:? (units (unk n) date) unknown) (unknown) (no (unknown) (unknown) G62.9 - (units (o wn) date) Polyneuropathy, unknown) unspecified (unknown) (no (unknown) (unknown) GI: abdomen soft, (units (unknown) date) nontender to unknown) palpation, nondistended, no masses, no exquisite (unknown) (no (unknown) (unknown) GI: denies (units (unk n) date) abdominal pain, unknown) nausea, vomiting, or diarrhea (unknown) (no (unknown) (unknown) : denies (units (unk n) date) dysuria, hematuria, unknown) urinary retention, frequency or incontinence (unknown) (no (unknown) (unknown) Gabapentin (units (unk n) date) (Gabapentin 300 Mg unknown) Capsule) 300 mg PO NOW ONE (unknown) (no (unknown) (unknown) General (units (unkno wn) date) unknown) (unknown) (no (unknown) (unknown) General: (units (unkno wn) date) cooperative, unknown) comfortable, in no acute distress, well developed and well (unknown) (no (unknown) (unknown) General: denies (units (unknown) date) fever, chills, unknown) malaise, sweats, endorses daily and crippling (unknown) (no (unknown) (unknown) GenericComposite[P (units (unknown) date) lt Count 290 unknown) (150-400) X10^3/uL ] (unknown) (no (unknown) (unknown) GenericComposite[R (units (unknown) date) BC 4.27 unknown) (4.0-5.2) X10^6/uL ] (unknown) (no (unknown) (unknown) GenericComposite[W (units (unknown) date) BC 13.1 H unknown) (4.5-11.0) X10^3/uL ] (unknown) (no (unknown) (unknown) Giant cell (units (unk nown) date) arteritis unknown) considered, but thought unlikely given lack of unilateral (unknown) (no (unknown) (unknown) Globulin 2.5 (units (unknown) date) (1.7-4.1) g/dL unknown) (unknown) (no (unknown) (unknown) Glucose 142 H (units (unknown) date) (70-100) mg/dL unknown) (unknown) (no (unknown) (unknown) HPI - Neck (units (unk nown) date) Pain/Injury unknown) (unknown) (no (unknown) (unknown) HPI Narrative: (units (unknown) date) unknown) (unknown) (no (unknown) (unknown) HTN Emergency (units ( unknown) date) considered, but unknown) thought unlikely given normal vitals (unknown) (no (unknown) (unknown) Hct 40.4 (units (unkn own) date) (36-46) % unknown) (unknown) (no (unknown) (unknown) Head/Neck: denies (units (unknown) date) headache, neck unknown) pain, dizziness (unknown) (no (unknown) (unknown) Head: atraumatic, (units (unknown) date) symmetrical facial unknown) expressions (unknown) (no (unknown) (unknown) Hgb 13.6 (units (unkn own) date) (12.0-16.0) g/dL unknown) (unknown) (no (unknown) (unknown) History of Present (units (unknown) date) Illness unknown) (unknown) (no (unknown) (unknown) IMPRESSION:? (units (u nknown) date) unknown) (unknown) (no (unknown) (unknown) IMPRESSION:? Loss (units (unknown) date) of normal cervical unknown) lordosis.? No fracture. (unknown) (no (unknown) (unknown) INDICATIONS:? head (units (unknown) date) and neck pain x3 unknown) weeks (unknown) (no (unknown) (unknown) Image quality:? (units (unknown) date) Excellent.? unknown) (unknown) (no (unknown) (unknown) Imaging Data (units (u nknown) date) unknown) (unknown) (no (unknown) (unknown) Independently (units ( unknown) date) reviewed vitals unknown) signs and nursing notes. (unknown) (no (unknown) (unknown) Initial Vital (units ( unknown) date) Signs unknown) (unknown) (no (unknown) (unknown) Initial Vital (units ( unknown) date) Signs: unknown) (unknown) (no (unknown) (unknown) Ketorolac (units (unkn own) date) Tromethamine unknown) (Ketorolac 30 Mg/Ml Vial) 15 mg IM NOW ONE (unknown) (no (unknown) (unknown) Lab Data (units (unkno wn) date) unknown) (unknown) (no (unknown) (unknown) Labs: (units (unkno wn) date) unknown) (unknown) (no (unknown) (unknown) Latuda 2 months (units (unknown) date) ago cold turkey unknown) because she ran out and did not have a (unknown) (no (unknown) (unknown) Lidocaine (units (unkn own) date) (Lidocaine Patch 1 unknown) Each Adh..Patch) 1 each TOP NOW ONE (unknown) (no (unknown) (unknown) Lymph # (Auto) (units (unknown) date) 800 L unknown) (5512-3466) /uL (unknown) (no (unknown) (unknown) Lymph % (Auto) (units (unknown) date) 6.5 L (25-40) % unknown) (unknown) (no (unknown) (unknown) MCH 31.9 (units (unkn own) date) (26-34) PG unknown) (unknown) (no (unknown) (unknown) MCHC 33.7 (units (unk nown) date) (30-36) % unknown) (unknown) (no (unknown) (unknown) MCV 94.6 (units (unkn own) date) (80-100) fL unknown) (unknown) (no (unknown) (unknown) MDM - Neck (units (unk nown) date) Pain/Injury unknown) (unknown) (no (unknown) (unknown) MDM Narrative (units ( unknown) date) unknown) (unknown) (no (unknown) (unknown) MSK: denies joint (units (unknown) date) pain, muscle unknown) weakness (unknown) (no (unknown) (unknown) MSK: moves all (units ( unknown) date) extremities, unknown) ambulatory w/steady gait, neurovascularly intact, no (unknown) (no (unknown) (unknown) Medical decision (units (unknown) date) making narrative: unknown) (unknown) (no (unknown) (unknown) Meningitis (units (unkn own) date) considered, but unknown) thought unlikely given lack of Brudzinski's Kernig's (unknown) (no (unknown) (unknown) Methocarbamol (units ( unknown) date) (Methocarbamol 500 unknown) Mg Tablet) 750 mg PO NOW ONE (unknown) (no (unknown) (unknown) Mode of arrival: (units (unknown) date) Ambulatory unknown) (unknown) (no (unknown) (unknown) [place] # (Auto) 200 (units (unknown) date) (0-900) /uL unknown) (unknown) (no (unknown) (unknown) [place] % (Auto) 1.7 (units (unknown) date) L (3-14) % unknown) (unknown) (no (unknown) (unknown) Mouth/Throat: (units ( unknown) date) uvula midline, unknown) moist mucus membranes (unknown) (no (unknown) (unknown) Narrative (units (unkn own) date) unknown) (unknown) (no (unknown) (unknown) Narrative: (units (unk nown) date) unknown) (unknown) (no (unknown) (unknown) Neck: supple, (units ( unknown) date) atraumatic, without unknown) lymphadenopathy. Patient has left trapezius (unknown) (no (unknown) (unknown) Neuro: denies (units ( unknown) date) numbness, tingling unknown) (unknown) (no (unknown) (unknown) Neuro: normal (units ( unknown) date) speech and unknown) cognition, A+O x3, normal tone (unknown) (no (unknown) (unknown) Neut # (Auto) (units ( unknown) date) 42447 H unknown) (6412-8376) /uL (unknown) (no (unknown) (unknown) Neut % (Auto) (units ( unknown) date) 91.5 H (50-75) unknown) % (unknown) (no (unknown) (unknown) New (units (unkno wn) date) unknown) (unknown) (no (unknown) (unknown) Noncontrast 3 mm (units (unknown) date) thick sections unknown) acquired from the skull base to the T4 level.? (unknown) (no (unknown) (unknown) Noncontrast 4.5 mm (units (unknown) date) thick angled axial unknown) sections acquired from the foramen magnum (unknown) (no (unknown) (unknown) Nose: nares (units (un known) date) patent, no unknown) rhinorrhea (unknown) (no (unknown) (unknown) Ordered: (units (unkno wn) date) unknown) (unknown) (no (unknown) (unknown) Orders (units (unkno wn) date) unknown) (unknown) (no (unknown) (unknown) Other serious (units (u nknown) date) diagnoses unknown) considered unlikely given lack of red flag findings such (unknown) (no (unknown) (unknown) Oxycodone/Acetamino (units (unknown) date) phen unknown) (Oxycodone/Acetamin ophen 5/325 Tablet) 1 tab PO NOW ONE (unknown) (no (unknown) (unknown) PROCEDURE:? CT (units (unknown) date) CERVICAL SPINE WO unknown) CON (unknown) (no (unknown) (unknown) PROCEDURE:? CT (units (unknown) date) HEAD/BRAIN WO CON unknown) (unknown) (no (unknown) (unknown) Patient (units (unkno wn) date) Disposition: Home unknown) (unknown) (no (unknown) (unknown) Patient History (units (unknown) date) unknown) (unknown) (no (unknown) (unknown) Patient has been (units (unknown) date) given strict return unknown) to ER precautions for any new or worsening (unknown) (no (unknown) (unknown) Patient is (units (unk nown) date) appropriate and unknown) amenable to discharge home. Vital signs are stable (unknown) (no (unknown) (unknown) Patient states she (units (unknown) date) does not want to unknown) start taking Latuda again because she did (unknown) (no (unknown) (unknown) Patient: (units (unkno wn) date) brittni Lane unknown) MR#: [id number] (unknown) (no (unknown) (unknown) Penicillins (units (un known) date) Allergy Verified unknown) 07/07/21 12:53 (unknown) (no (unknown) (unknown) Peripheral (units (unk nown) date) neuropathy unknown) (unknown) (no (unknown) (unknown) Please see how the (units (unknown) date) gabapentin helps unknown) your pain, there are other interventions (unknown) (no (unknown) (unknown) Please try and (units (unknown) date) stay active as your unknown) body allows, this will help release (unknown) (no (unknown) (unknown) Potassium 4.6 (units (unknown) date) (3.4-5.1) mmol/L unknown) (unknown) (no (unknown) (unknown) Test (units (unknown) date) Results Negative unknown) (unknown) (no (unknown) (unknown) is (units (u nknown) date) negative, CRP ESR unknown) are not elevated. UA shows a trace of blood, (unknown) (no (unknown) (unknown) Prescriptions: (units (unknown) date) unknown) (unknown) (no (unknown) (unknown) Psych: mental (units ( unknown) date) status is grossly unknown) normal, congruent mood, normal affect, pleasant (unknown) (no (unknown) (unknown) Pulse Oximetry 98 (units (unknown) date) 07/07/21 12:48 unknown) (unknown) (no (unknown) (unknown) Pulse Oximetry 98 (units (unknown) date) unknown) (unknown) (no (unknown) (unknown) Pulse Rate 65 (units (unknown) date) 07/07/21 12:48 unknown) (unknown) (no (unknown) (unknown) Pulse Rate 65 (units ( unknown) date) unknown) (unknown) (no (unknown) (unknown) Qualifiers: (units (un known) date) unknown) (unknown) (no (unknown) (unknown) RDW 13.5 (units (unkn own) date) (11.6-14.8) % unknown) (unknown) (no (unknown) (unknown) Referrals: (units (unk nown) date) unknown) (unknown) (no (unknown) (unknown) Related Data (units (u nknown) date) unknown) (unknown) (no (unknown) (unknown) Respiratory Rate (units (unknown) date) 16 07/07/21 12:48 unknown) (unknown) (no (unknown) (unknown) Respiratory Rate (units (unknown) date) 16 unknown) (unknown) (no (unknown) (unknown) Respiratory: (units (u nknown) date) denies dyspnea, unknown) cough, orthopnea (unknown) (no (unknown) (unknown) Respiratory: (units (u nknown) date) normal effort, able unknown) to speak in complete sentences, no audible (unknown) (no (unknown) (unknown) Result diagrams: (units (unknown) date) unknown) (unknown) (no (unknown) (unknown) Review of Systems (units (unknown) date) unknown) (unknown) (no (unknown) (unknown) Sagittal (units (unkno wn) date) unknown) (unknown) (no (unknown) (unknown) Signed By: (units (unk nown) date) unknown) (unknown) (no (unknown) (unknown) Sinuses:? (units (unkn own) date) Visualized sinuses unknown) and mastoids are clear.? (unknown) (no (unknown) (unknown) Skin: brisk (units (un known) date) capillary refill, unknown) no rash, no erythema (unknown) (no (unknown) (unknown) Skin: denies rash, (units (unknown) date) itching, skin unknown) lesions or other (unknown) (no (unknown) (unknown) Skull and face:? (units (unknown) date) Calvarium and unknown) visualized facial bones are intact, without (unknown) (no (unknown) (unknown) Smoking Status: (units (unknown) date) Current every day unknown) smoker (unknown) (no (unknown) (unknown) Smoking Status: (units (unknown) date) Current every day unknown) smoker (unknown) (no (unknown) (unknown) Social History (units (unknown) date) (Reviewed 07/07/21 unknown) @ 15:40 by Latonya Mishra [facility]) (unknown) (no (unknown) (unknown) Sodium 138 (units (u nknown) date) (137-145) mmol/L unknown) (unknown) (no (unknown) (unknown) Soft tissues:? (units (unknown) date) Prevertebral soft unknown) tissues are normal in thickness.? No (unknown) (no (unknown) (unknown) Stated Complaint: (units (unknown) date) NECK PAIN TINGLING unknown) OF HAND AND ARMS TIRED (unknown) (no (unknown) (unknown) Subarachnoid (units (u nknown) date) hemorrhage, but unknown) unlikely as patient denies sudden onset of pain, (unknown) (no (unknown) (unknown) Substance Use (units ( unknown) date) Type: does not use unknown) (unknown) (no (unknown) (unknown) Sulfa (Sulfonamide (units (unknown) date) Allergy Verified unknown) 07/07/21 12:53 (unknown) (no (unknown) (unknown) TECHNIQUE:? (units (un known) date) unknown) (unknown) (no (unknown) (unknown) Temperature 98 F (units (unknown) date) 07/07/21 12:48 unknown) (unknown) (no (unknown) (unknown) Temperature 98 F (units (unknown) date) unknown) (unknown) (no (unknown) (unknown) This is a (units (unkn own) date) 26-year-old female unknown) who presents to the emergency department (unknown) (no (unknown) (unknown) This is a (units (unkn own) date) 26-year-old female unknown) with 5 children, history of anxiety, depression, (unknown) (no (unknown) (unknown) This is treated (units (unknown) date) with multi unknown) modalities including SSRIs, complementary therapies (unknown) (no (unknown) (unknown) Tan Nguyen (units (unknown) date) MD Jamison unknown) [Physician] - (unknown) (no (unknown) (unknown) Time Seen by (units (u nknown) date) Provider: 07/07/21 unknown) 14:42 (unknown) (no (unknown) (unknown) Total Bilirubin (units (unknown) date) 0.2 (0.2-1.3) unknown) mg/dL (unknown) (no (unknown) (unknown) Total Protein (units ( unknown) date) 7.2 (6.3-8.2) unknown) g/dL (unknown) (no (unknown) (unknown) Tylenol and states (units (unknown) date) none of that was unknown) very helpful. Patient endorses lidocaine (unknown) (no (unknown) (unknown) Tylenol, (units (unkno wn) date) gabapentin, and a unknown) lidocaine patch in the emergency department she (unknown) (no (unknown) (unknown) UA Complete (units (un known) date) [Urinalysis and unknown) Microscopic] Stat (unknown) (no (unknown) (unknown) Ur Leukocyte (units (u nknown) date) Esterase unknown) Negative (NEGATIVE) (unknown) (no (unknown) (unknown) Ur Specific (units (un known) date) [place] 1.015 unknown) (1.000-1.035) (unknown) (no (unknown) (unknown) Urine Appearance (units (unknown) date) Cloudy unknown) (unknown) (no (unknown) (unknown) Urine Bilirubin (units (unknown) date) Negative unknown) (NEGATIVE) (unknown) (no (unknown) (unknown) Urine Color (units (un known) date) Yellow unknown) (unknown) (no (unknown) (unknown) Urine Culture Stat (units (unknown) date) unknown) (unknown) (no (unknown) (unknown) Urine Glucose (UA) (units (unknown) date) Negative unknown) (Negative) g/dL (unknown) (no (unknown) (unknown) Urine Ketones (units ( unknown) date) Negative unknown) (NEGATIVE) (unknown) (no (unknown) (unknown) Urine Nitrate (units ( unknown) date) Negative unknown) (Negative) (unknown) (no (unknown) (unknown) Urine Occult Blood (units (unknown) date) Trace-lysed unknown) (Negative) (unknown) (no (unknown) (unknown) Urine Protein (units ( unknown) date) Negative unknown) (Negative) (unknown) (no (unknown) (unknown) Urine Specific (units (unknown) date) [place] 1.010 unknown) (unknown) (no (unknown) (unknown) Urine Urobilinogen (units (unknown) date) 0.2 (0.2) unknown) E.U./dL (unknown) (no (unknown) (unknown) Urine pH 7.5 (units (unknown) date) (4.5-8.0) unknown) (unknown) (no (unknown) (unknown) Ventricles (units (unk nown) date) unknown) (unknown) (no (unknown) (unknown) Visualized (units (unk nown) date) superior ribs are unknown) intact.? (unknown) (no (unknown) (unknown) Vital Signs (units (un known) date) unknown) (unknown) (no (unknown) (unknown) Vital signs: (units (u nknown) date) unknown) (unknown) (no (unknown) (unknown) [Embedded Image (units (unknown) date) Not Available] unknown) (unknown) (no (unknown) (unknown) activity, stay (units (unknown) date) hydrated, eat food unknown) with ibuprofen so that you do not get an (unknown) (no (unknown) (unknown) alcohol intake (units (unknown) date) frequency: a few unknown) times a week (unknown) (no (unknown) (unknown) already has (units (un known) date) opiates and muscle unknown) relaxers at home but when she was offered (unknown) (no (unknown) (unknown) and cooperative (units (unknown) date) unknown) (unknown) (no (unknown) (unknown) and coronal (units (un known) date) reformats were then unknown) constructed.? For radiation dose reduction, the (unknown) (no (unknown) (unknown) another (units (unkno wn) date) evaluation. unknown) Headache considerations include, but not limited to: (unknown) (no (unknown) (unknown) another (units (unkno wn) date) prescription of unknown) steroids, muscle relaxers, and morphine tablets without (unknown) (no (unknown) (unknown) any other testing (units (unknown) date) completed. Patient unknown) states that she has had 2 urine test this (unknown) (no (unknown) (unknown) appointment. Let (units (unknown) date) them know you were unknown) seen in the Emergency Department and that we (unknown) (no (unknown) (unknown) are all normal (units (unknown) date) without suspicion unknown) for abnormality. Great news! (unknown) (no (unknown) (unknown) are normal in size (units (unknown) date) and shape.? unknown) (unknown) (no (unknown) (unknown) asked that you be (units (unknown) date) seen for follow-up. unknown) We will electronically transmit a record (unknown) (no (unknown) (unknown) best, please go to (units (unknown) date) your appointment on unknown) July 16, follow-up with your primary (unknown) (no (unknown) (unknown) brain/head/C-spine. (units (unknown) date) CT head shows no unknown) acute intracranial abnormality, CT C-spine (unknown) (no (unknown) (unknown) care provider for a (units (unknown) date) referral to unknown) physical therapy and /or advanced imaging if you (unknown) (no (unknown) (unknown) changes, inability (units (unknown) date) to turn her head, unknown) to return to the emergency department for (unknown) (no (unknown) (unknown) chills, (units (unkno wn) date) diaphoresis, unknown) abdominal pain, states that she threw up yesterday a.m. but (unknown) (no (unknown) (unknown) cognitive (units (unkn own) date) dysfunction, and unknown) peripheral neuropathy. These are all symptoms of (unknown) (no (unknown) (unknown) complaining of (units (unknown) date) left-sided neck unknown) pain for the last 3 weeks, peripheral neuropathy (unknown) (no (unknown) (unknown) concerning (units (unk nown) date) symptoms, such as unknown) [fever greater than 101F, chills, worsening pain, (unknown) (no (unknown) (unknown) days, and oxycodone (units (unknown) date) with muscle unknown) relaxers. She states that it did not help much, (unknown) (no (unknown) (unknown) declined and (units (u nknown) date) states that we are unknown) not doing anything for her. Or there was a (unknown) (no (unknown) (unknown) denies any (units (unk nown) date) diarrhea, rash unknown) isolated pain in 1 area. Patient states that she (unknown) (no (unknown) (unknown) diclofenac sodium (units (unknown) date) 1 % topical gel 2 g unknown) TOPICAL QID #100 g 07/07/21 (unknown) (no (unknown) (unknown) elevated, patient (units (unknown) date) states that unknown) lidocaine patches were the most helpful in she (unknown) (no (unknown) (unknown) establish care (units (unknown) date) with one of the unknown) [facility] primary care providers. (unknown) (no (unknown) (unknown) fatigue (units (unkno wn) date) unknown) (unknown) (no (unknown) (unknown) feels depressed, (units (unknown) date) she has a unknown) psychiatrist appointment on for July 16, 2021. (unknown) (no (unknown) (unknown) fibromyalgia (units (u nknown) date) symptoms. Opted to unknown) rule out tumor or fracture with a CT (unknown) (no (unknown) (unknown) fibromyalgia which (units (unknown) date) is stemming from unknown) undertreated neurochemicals your brain. (unknown) (no (unknown) (unknown) findings, pain in (units (unknown) date) advent, vision unknown) change (unknown) (no (unknown) (unknown) following (units (unkn own) date) unknown) (unknown) (no (unknown) (unknown) from her neck. (units (unknown) date) She went to [facility] unknown) emergency, was prescribed steroids for 5 (unknown) (no (unknown) (unknown) gabapentin 300 mg (units (unknown) date) capsule 600 mg PO unknown) TID 14 Days #84 caplet 07/07/21 (unknown) (no (unknown) (unknown) groomed (units (unkno wn) date) unknown) (unknown) (no (unknown) (unknown) hand (units (unkno wn) date) unknown) (unknown) (no (unknown) (unknown) hematomas.? No (units (unknown) date) apical unknown) pneumothoraces.? (unknown) (no (unknown) (unknown) ice is safe, if (units (unknown) date) she develops any unknown) worsening of her symptoms, weakness, vision (unknown) (no (unknown) (unknown) in all of her (units ( unknown) date) extremities, unknown) fatigue, depressed mood, and difficulty completing (unknown) (no (unknown) (unknown) include prozac and (units (unknown) date) gabapentin if not unknown) improved on prozac. Your CT brain shows no (unknown) (no (unknown) (unknown) incontinence, (units ( unknown) date) dizziness, vision unknown) changes. (unknown) (no (unknown) (unknown) interface is (units (u nknown) date) normal.? unknown) (unknown) (no (unknown) (unknown) lesions.? (units (unkn own) date) unknown) (unknown) (no (unknown) (unknown) lidocaine 5 % (units ( unknown) date) topical patch 1 unknown) patch TOPICAL BID PRN #15 ea 07/07/21 (unknown) (no (unknown) (unknown) lidocaine patches (units (unknown) date) a little from unknown) oxycodone. She was given Toradol, (unknown) (no (unknown) (unknown) lidocaine patches, (units (unknown) date) Voltaren gel, and unknown) Robaxin. Encourage patient to stay active, (unknown) (no (unknown) (unknown) like cognitive (units (unknown) date) behavioral therapy, unknown) other oral medications which may work for (unknown) (no (unknown) (unknown) like exercise, (units (unknown) date) yoga, acupuncture, unknown) talk therapy, and first line medications (unknown) (no (unknown) (unknown) likely (units (unkno wn) date) contributing to her unknown) mild leukocytosis of 13.1. CRP and ESR were not (unknown) (no (unknown) (unknown) lordosis.? (units (unk nown) date) unknown) (unknown) (no (unknown) (unknown) matter (units (unkno wn) date) unknown) (unknown) (no (unknown) (unknown) medications for (units (unknown) date) this neck pain and unknown) neuropathy without any improvement in her (unknown) (no (unknown) (unknown) medications or (units (unknown) date) stopping them unknown) altogether. Please continue taking the Prozac as (unknown) (no (unknown) (unknown) methocarbamol 750 (units (unknown) date) mg tablet 750 mg PO unknown) Q8H PRN #20 tab 07/07/21 (unknown) (no (unknown) (unknown) methocarbamol, (units (unknown) date) Percocet, lidocaine unknown) patch for her pain today. She requested a (unknown) (no (unknown) (unknown) muscle relaxers as (units (unknown) date) necessary for unknown) muscle spasms. Please use heat, light (unknown) (no (unknown) (unknown) muscle tension to (units (unknown) date) palpation, no rash, unknown) no masses no tenderness over C-spine (unknown) (no (unknown) (unknown) mutual decision (units (unknown) date) making between unknown) patient and myself to start her on gabapentin (unknown) (no (unknown) (unknown) no other vomiting. (units (unknown) date) States that she unknown) had a negative COVID test at home, she (unknown) (no (unknown) (unknown) none of those have (units (unknown) date) helped at all. unknown) Patient denies any lower extremity weakness, (unknown) (no (unknown) (unknown) normal cervical (units (unknown) date) curvature but no unknown) fracture, stenosis, masses, and soft tissues (unknown) (no (unknown) (unknown) not think it (units (u nknown) date) helped her. unknown) Patient has been using lidocaine patches which she (unknown) (no (unknown) (unknown) not worst of life, (units (unknown) date) or neck pain, CT unknown) ruled this out. (unknown) (no (unknown) (unknown) of 3 weeks of (units ( unknown) date) left-sided neck unknown) pain, neuropathy, fatigue, multiple locations of (unknown) (no (unknown) (unknown) of today's note if (units (unknown) date) your PCP is in our unknown) system (unknown) (no (unknown) (unknown) on repeat (units (unkn own) date) examination is unknown) unremarkable. Patient has been informed of results. (unknown) (no (unknown) (unknown) pain started on (units (unknown) date) 06/20/2021 with unknown) neuropathy symptoms down into her fingertips (unknown) (no (unknown) (unknown) pain, and has (units ( unknown) date) tried opiates, unknown) muscle relaxers, lidocaine patches, incident (unknown) (no (unknown) (unknown) pancreatitis, and (units (unknown) date) leukemia who unknown) presents to the emergency department complaining (unknown) (no (unknown) (unknown) paravertebral (units ( unknown) date) unknown) (unknown) (no (unknown) (unknown) patches as being (units (unknown) date) the most helpful. unknown) She states she stopped taking Latuda cold (unknown) (no (unknown) (unknown) patient (units (unkno wn) date) unknown) (unknown) (no (unknown) (unknown) patient states she (units (unknown) date) is on her menses. unknown) No leukocytes, bacteria, or nitrites. (unknown) (no (unknown) (unknown) persistent (units (unk nown) date) vomiting or other unknown) bothersome symptoms] (unknown) (no (unknown) (unknown) prescriber. She (units (unknown) date) states that she unknown) still is taking Prozac 20 mg daily, she states (unknown) (no (unknown) (unknown) prescription for (units (unknown) date) something less unknown) strong and was given tramadol, gabapentin, (unknown) (no (unknown) (unknown) questions and (units ( unknown) date) concerns answered unknown) at this time. 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 Patient states that she stop taking (unknown) (no (unknown) (unknown) size.? (units (unkno wn) date) unknown) (unknown) (no (unknown) (unknown) starting (units (unkno wn) date) approximately 2 unknown) weeks ago. Patient states that her left-sided neck (unknown) (no (unknown) (unknown) states are the (units (unknown) date) most helpful, unknown) taking morphine tabs, muscle relaxers, and states (unknown) (no (unknown) (unknown) states that the (units (unknown) date) morphine was too unknown) strong for her, she had some relief from (unknown) (no (unknown) (unknown) suspicious (units (unk nown) date) unknown) (unknown) (no (unknown) (unknown) symptoms. Patient (units (unknown) date) understands to unknown) follow up closely with outpatient providers as (unknown) (no (unknown) (unknown) symptoms. She has (units (unknown) date) been afebrile, unknown) completed 2 courses of steroids, this is (unknown) (no (unknown) (unknown) tenderness with (units (unknown) date) exam, without unknown) guarding or rebound. (unknown) (no (unknown) (unknown) that she has been (units (unknown) date) to would be unknown) emergency department 2 times for this neck pain (unknown) (no (unknown) (unknown) thinners, etc. (units (unknown) date) unknown) (unknown) (no (unknown) (unknown) to the (units (unkno wn) date) unknown) (unknown) (no (unknown) (unknown) tramadol 50 mg (units (unknown) date) tablet (Ultram) 50 unknown) mg PO BID PRN #20 tab 07/07/21 (unknown) (no (unknown) (unknown) turkey 2 months (units (unknown) date) ago, she is on 20 unknown) mg of Prozac daily, has been using all these (unknown) (no (unknown) (unknown) ulcer. I wish you (units (unknown) date) the best with your unknown) follow-up. (unknown) (no (unknown) (unknown) until she sees her (units (unknown) date) psychiatrist in 9 unknown) days to help treat her for her likely (unknown) (no (unknown) (unknown) vancomycin AdvReac (units (unknown) date) Redness of unknown) Verified 07/07/21 12:53 (unknown) (no (unknown) (unknown) vertex, with (units (u nknown) date) coronal and unknown) sagittal reformats.? For radiation dose reduction, the (unknown) (no (unknown) (unknown) was used:? (units (unk nown) date) automated exposure unknown) control, adjustment of mA and/or kV according to (unknown) (no (unknown) (unknown) weakness (units (unkno wn) date) unknown) (unknown) (no (unknown) (unknown) week for (units (unknown) date) and they were both unknown) negative. Patient endorses a headache, (unknown) (no (unknown) (unknown) wheezing, stridor, (units (unknown) date) or rales. No unknown) retractions or tachypnea. (unknown) (no (unknown) (unknown) you are, take (units ( unknown) date) ibuprofen or unknown) Tylenol with food and water as needed for your pain, (unknown) (no (unknown) (unknown) you, and there is (units (unknown) date) no evidence that unknown) opioids are effective treatment of this. Result panel 13 (unknown) (no (unknown) (unknown) (no value) (units (unk nown) date) unknown) (unknown) (no (unknown) (unknown) Radiologist's (units ( unknown) date) Impression: unknown) (unknown) (no (unknown) (unknown) *Please continue (units (unknown) date) to take your unknown) regular medications as directed. (unknown) (no (unknown) (unknown) Date of Service: (units (unknown) date) 07/07/21 unknown) (unknown) (no (unknown) (unknown) (no value) (units (unk nown) date) unknown) (unknown) (no (unknown) (unknown) <Electronically (units (unknown) date) signed by Vanna unknown) Destiny Hayward> (unknown) (no (unknown) (unknown) <Electronically (units (unknown) date) signed by Latonya unknown) Skye HUITRON Crew> (unknown) (no (unknown) (unknown) 07/07/21 14:12 (units (unknown) date) unknown) (unknown) (no (unknown) (unknown) 07/07/21 1654 (units ( unknown) date) unknown) (unknown) (no (unknown) (unknown) 07/08/21 0717 (units ( unknown) date) unknown) (unknown) (no (unknown) (unknown) 1 patch topical (units (unknown) date) BID PRN (Reason: unknown) pain) Qty: 15 0RF (unknown) (no (unknown) (unknown) 2 g topical QID (units (unknown) date) Qty: 100 0RF unknown) (unknown) (no (unknown) (unknown) 50 mg PO BID PRN (units (unknown) date) (Reason: pain) Qty: unknown) 20 0RF (unknown) (no (unknown) (unknown) 600 mg PO TID 14 (units (unknown) date) Days Qty: 84 0RF unknown) (unknown) (no (unknown) (unknown) 750 mg PO Q8H PRN (units (unknown) date) (Reason: muscle unknown) spasm, insomnia) Qty: 20 0RF (unknown) (no (unknown) (unknown) Allergies (units (unkn own) date) unknown) (unknown) (no (unknown) (unknown) Documented by: (units (unknown) date) ARIAN unknown) (unknown) (no (unknown) (unknown) Emergency Report (units (unknown) date) unknown) (unknown) (no (unknown) (unknown) [facility] (units (unknown) date) [address] [place] [address] unknown) [place] [address] (unknown) (no (unknown) (unknown) Lab Results (units (un known) date) unknown) (unknown) (no (unknown) (unknown) Last Admin: (units (un known) date) 07/07/21 15:36 unknown) Dose: 300 mg (unknown) (no (unknown) (unknown) Last Admin: (units (un known) date) 07/07/21 15:36 unknown) Dose: 975 mg (unknown) (no (unknown) (unknown) Last Admin: (units (un known) date) 07/07/21 15:37 unknown) Dose: 1 each (unknown) (no (unknown) (unknown) Last Admin: (units (un known) date) 07/07/21 16:39 unknown) Dose: 15 mg (unknown) (no (unknown) (unknown) Last Admin: (units (un known) date) 07/07/21 16:40 unknown) Dose: 750 mg (unknown) (no (unknown) (unknown) Last Admin: (units (un known) date) 07/07/21 16:41 unknown) Dose: 1 tab (unknown) (no (unknown) (unknown) Point of Care (units ( unknown) date) Testing unknown) (unknown) (no (unknown) (unknown) Previous Rx's (units ( unknown) date) unknown) (unknown) (no (unknown) (unknown) Rx Instructions: (units (unknown) date) unknown) (unknown) (no (unknown) (unknown) Skin (units (unkno wn) date) unknown) (unknown) (no (unknown) (unknown) Stop: 07/07/21 (units (unknown) date) 15:19 unknown) (unknown) (no (unknown) (unknown) Stop: 07/07/21 (units (unknown) date) 16:31 unknown) (unknown) (no (unknown) (unknown) Stop: 07/07/21 (units (unknown) date) 16:32 unknown) (unknown) (no (unknown) (unknown) Urine Dip (units (unkn own) date) unknown) (unknown) (no (unknown) (unknown) Vital Signs - 8 hr (units (unknown) date) unknown) (unknown) (no (unknown) (unknown) [ ] New medication (units (unknown) date) written as a paper unknown) prescription (unknown) (no (unknown) (unknown) [ ] No new (units (unk nown) date) medications given unknown) (unknown) (no (unknown) (unknown) [ x] New (units (unkno wn) date) medication unknown) prescriptions sent to your pharmacy: [ [facility] (unknown) (no (unknown) (unknown) apply to single (units (unknown) date) elbow, wrist or unknown) hand; for hand includes palm/fingers/back of (unknown) (no (unknown) (unknown) leave on most (units ( unknown) date) painful area for up unknown) to 12 hrs (unknown) (no (unknown) (unknown) (no value) (units (unk nown) date) unknown) (unknown) (no (unknown) (unknown) 07/07/21 07/07/21 (units (unknown) date) 07/07/21 unknown) Range/Units (unknown) (no (unknown) (unknown) 14:12 14:12 16:24 (units (unknown) date) unknown) (unknown) (no (unknown) (unknown) diclofenac sodium (units (unknown) date) [Voltaren Arthritis unknown) Pain] 1 % gel (unknown) (no (unknown) (unknown) gabapentin 300 mg (units (unknown) date) capsule unknown) (unknown) (no (unknown) (unknown) lidocaine (units (unkn own) date) [Lidoderm] 5 % unknown) adhesive patch,medicated (unknown) (no (unknown) (unknown) methocarbamol 750 (units (unknown) date) mg tablet unknown) (unknown) (no (unknown) (unknown) tramadol [Ultram] (units (unknown) date) 50 mg tablet unknown) (unknown) (no (unknown) (unknown) 07/07/21 (units (unkno wn) date) unknown) (unknown) (no (unknown) (unknown) Acute neck pain, (units (unknown) date) Fatigue unknown) (unknown) (no (unknown) (unknown) Farson] (units (unkno wn) date) unknown) (unknown) (no (unknown) (unknown) Medication (units (unk nown) date) Instructions unknown) Recorded (unknown) (no (unknown) (unknown) Peripheral (units (unk nown) date) neuropathy type: unknown) polyneuropathy, unspecified Qualified Code(s): (unknown) (no (unknown) (unknown) acute intracranial (units (unknown) date) abnormality, your unknown) CT of your cervical spine shows loss of (unknown) (no (unknown) (unknown) as sudden onset, (units (unknown) date) increasing unknown) frequency, immunocompromise, systemic signs (fever, (unknown) (no (unknown) (unknown) chills, stiff (units ( unknown) date) neck, or rash), unknown) focal neurologic findings, trauma, blood (unknown) (no (unknown) (unknown) continue to have (units (unknown) date) symptoms. Please unknown) follow-up with a specialist before changing (unknown) (no (unknown) (unknown) instructed. (units (un known) date) Patient understands unknown) plan and agrees to discharge home. All (unknown) (no (unknown) (unknown) shows loss of (units ( unknown) date) cervical lordosis unknown) without any stenosis or acute abnormality. (unknown) (no (unknown) (unknown) sign, altered (units ( unknown) date) mental status or unknown) fever. (unknown) (no (unknown) (unknown) use the (units (unkno wn) date) medications as unknown) needed, in addition to Tylenol and ibuprofen, heat and (unknown) (no (unknown) (unknown) <Vanna Hayward, (units (unknown) date) DO - Last Filed: unknown) 07/08/21 07:17> (unknown) (no (unknown) (unknown) <Latonya Mishra, (units (unknown) date) [employer] ATTENDANT - Last Filed: unknown) 07/07/21 16:54> (unknown) (no (unknown) (unknown) (Lidoderm) (units (unk nown) date) unknown) (unknown) (no (unknown) (unknown) (Voltaren (units (unkn own) date) Arthritis Pain) unknown) (unknown) (no (unknown) (unknown) *If you do not (units (unknown) date) have a primary care unknown) provider please contact [phone] to (unknown) (no (unknown) (unknown) *Please follow up (units (unknown) date) with your primary unknown) care provider in 2-3 days, call for an (unknown) (no (unknown) (unknown) *Return to (units (unk nown) date) Emergency unknown) Department if you should have any new, worsening or (unknown) (no (unknown) (unknown) *What to do: (units (u nknown) date) unknown) (unknown) (no (unknown) (unknown) *You have been (units (unknown) date) diagnosed with pain unknown) in multiple locations, fatigue, insomnia, (unknown) (no (unknown) (unknown) 1. No acute (units (un known) date) intracranial unknown) abnormalities. (unknown) (no (unknown) (unknown) 12:48 (units (unkno wn) date) unknown) (unknown) (no (unknown) (unknown) 9601 (units (unkno wn) date) unknown) (unknown) (no (unknown) (unknown) ? (units (unkno wn) date) unknown) (unknown) (no (unknown) (unknown) ALT 53 H (<35) (units (unknown) date) IU/L unknown) (unknown) (no (unknown) (unknown) AST 26 (14-36) (units (unknown) date) IU/L unknown) (unknown) (no (unknown) (unknown) Acetaminophen (units ( unknown) date) (Acetaminophen 325 unknown) Mg Tablet) 975 mg PO NOW ONE (unknown) (no (unknown) (unknown) Activity (units (unkno wn) date) Restrictions/Additi unknown) onal Instructions: (unknown) (no (unknown) (unknown) Age/Sex: 26 / F (units (unknown) date) unknown) (unknown) (no (unknown) (unknown) Albumin 4.7 (units ( unknown) date) (3.5-5.0) g/dL unknown) (unknown) (no (unknown) (unknown) Albumin/Globulin (units (unknown) date) Ratio 1.9 unknown) (1.0-2.8) (unknown) (no (unknown) (unknown) Alkaline (units (unkno wn) date) Phosphatase 55 unknown) (38-126) U/L (unknown) (no (unknown) (unknown) Allergy/AdvReac (units (unknown) date) Type Severity unknown) Reaction Status Date / Time (unknown) (no (unknown) (unknown) Amorphous Sediment (units (unknown) date) 4+ unknown) (unknown) (no (unknown) (unknown) Antibiotics) (units (u nknown) date) unknown) (unknown) (no (unknown) (unknown) Approved by: Paul (units (unknown) date) Concetta Aranda on unknown) 07/07/2021 at 14:59 ? (unknown) (no (unknown) (unknown) Approved by: Paul (units (unknown) date) Concetta Aranda on unknown) 07/07/2021 at 15:05 ? (unknown) (no (unknown) (unknown) BUN 19 H (units (unk nown) date) (7-17) mg/dL unknown) (unknown) (no (unknown) (unknown) BUN/Creatinine (units (unknown) date) Ratio 20.7 unknown) (6-22) (unknown) (no (unknown) (unknown) Baso # (Auto) 0 (units (unknown) date) (0-100) /uL unknown) (unknown) (no (unknown) (unknown) Baso % (Auto) 0.2 (units (unknown) date) (0-2) % unknown) (unknown) (no (unknown) (unknown) Bedside Urine (units ( unknown) date) Bilirubin - unknown) Negative (unknown) (no (unknown) (unknown) Bedside Urine (units ( unknown) date) Glucose Negative unknown) (unknown) (no (unknown) (unknown) Bedside Urine (units ( unknown) date) Ketone - unknown) Negative (unknown) (no (unknown) (unknown) Bedside Urine (units ( unknown) date) Leukocytes - unknown) Negative (unknown) (no (unknown) (unknown) Bedside Urine (units ( unknown) date) Nitrite - unknown) Negative (unknown) (no (unknown) (unknown) Bedside Urine (units ( unknown) date) Occult Blood - unknown) Negative (unknown) (no (unknown) (unknown) Bedside Urine (units ( unknown) date) Protein - unknown) Negative (unknown) (no (unknown) (unknown) Bedside Urine (units ( unknown) date) Urobilinogen - unknown) Negative (unknown) (no (unknown) (unknown) Bedside Urine pH (units (unknown) date) 7.5 unknown) (unknown) (no (unknown) (unknown) Blood Pressure (units (unknown) date) 143/72 H 07/07/21 unknown) 12:48 (unknown) (no (unknown) (unknown) Blood Pressure (units (unknown) date) 143/72 H unknown) (unknown) (no (unknown) (unknown) Bones:? No (units (unk nown) date) fractures or unknown) dislocations.? There is loss of normal cervical (unknown) (no (unknown) (unknown) Brain:? No midline (units (unknown) date) shift.? No unknown) intracranial masses or hemorrhage.? Wood-white (unknown) (no (unknown) (unknown) C-Reactive Protein (units (unknown) date) < 0.5 (<1.0) unknown) mg/dL (unknown) (no (unknown) (unknown) COMPARISON:? None. (units (unknown) date) unknown) (unknown) (no (unknown) (unknown) CSF spaces:? Basal (units (unknown) date) cisterns are unknown) patent.? No extra-axial fluid collections.? (unknown) (no (unknown) (unknown) CT - cervical (units ( unknown) date) spine: unknown) (unknown) (no (unknown) (unknown) CT scan - head: (units (unknown) date) unknown) (unknown) (no (unknown) (unknown) Calcium 9.2 (units ( unknown) date) (8.4-10.2) mg/dL unknown) (unknown) (no (unknown) (unknown) Carbon Dioxide (units (unknown) date) 32 (22-32) unknown) mmol/L (unknown) (no (unknown) (unknown) Cardio: denies (units (unknown) date) chest pain, unknown) palpitations, edema (unknown) (no (unknown) (unknown) Cardiovascular: (units (unknown) date) regular rate and unknown) rhythm, no peripheral edema, warm extremities (unknown) (no (unknown) (unknown) Chief Complaint: (units (unknown) date) Neck Pain/Injury unknown) (unknown) (no (unknown) (unknown) Chloride 100 (units (unknown) date) (98-107) mmol/L unknown) (unknown) (no (unknown) (unknown) Clinical (units (unkno wn) date) Impression: unknown) (unknown) (no (unknown) (unknown) Cosign (units (unkno wn) date) unknown) (unknown) (no (unknown) (unknown) Course (units (unkno wn) date) unknown) (unknown) (no (unknown) (unknown) Creatinine 0.92 (units (unknown) date) (0.52-1.04) mg/dL unknown) (unknown) (no (unknown) (unknown) : 1995 (units (unknown) date) Acct:[id number] unknown) (unknown) (no (unknown) (unknown) Departure (units (unkn own) date) unknown) (unknown) (no (unknown) (unknown) Dictated by: Paul (units (unknown) date) Concetta Aranda on unknown) 07/07/2021 at 14:58 ? ? (unknown) (no (unknown) (unknown) Dictated by: Paul (units (unknown) date) Concetta Aranda on unknown) 07/07/2021 at 15:00 ? ? (unknown) (no (unknown) (unknown) Discharge Plan (units (unknown) date) unknown) (unknown) (no (unknown) (unknown) Discontinued (units (u nknown) date) Medications unknown) (unknown) (no (unknown) (unknown) Discussion patient (units (unknown) date) her symptoms, she unknown) states that she is out muscle relaxers, (unknown) (no (unknown) (unknown) ED Attending (units (u nknown) date) Cosignature unknown) Attestation: (unknown) (no (unknown) (unknown) ER Physician: (units ( unknown) date) Latonya Mishra unknown) [employer] ATTENDANT (unknown) (no (unknown) (unknown) ESR 2 (0-20) (units (unknown) date) MM/HR unknown) (unknown) (no (unknown) (unknown) Endocannabinoids (units (unknown) date) which will treat unknown) your pain from your brain. I wish you the (unknown) (no (unknown) (unknown) Eos # (Auto) 0 (units (unknown) date) (0-450) /uL unknown) (unknown) (no (unknown) (unknown) Eos % (Auto) 0.1 (units (unknown) date) L (2-4) % unknown) (unknown) (no (unknown) (unknown) Esterase (units (unkno wn) date) unknown) (unknown) (no (unknown) (unknown) Estimated GFR > (units (unknown) date) 60 (>60) mL/min unknown) (unknown) (no (unknown) (unknown) Evidence suggests (units (unknown) date) that opiates have unknown) adverse effects on chronic pain syndromes. (unknown) (no (unknown) (unknown) Exam (units (unkno wn) date) unknown) (unknown) (no (unknown) (unknown) Exam Narrative: (units (unknown) date) unknown) (unknown) (no (unknown) (unknown) Eyes: denies (units (u nknown) date) visual changes, eye unknown) pain (unknown) (no (unknown) (unknown) Eyes: pupils equal (units (unknown) date) round and reactive, unknown) EOMI, conjunctiva normal (unknown) (no (unknown) (unknown) FINDINGS:? (units (unk nown) date) unknown) (unknown) (no (unknown) (unknown) G62.9 - (units (unkno wn) date) Polyneuropathy, unknown) unspecified (unknown) (no (unknown) (unknown) GI: abdomen soft, (units (unknown) date) nontender to unknown) palpation, nondistended, no masses, no exquisite (unknown) (no (unknown) (unknown) GI: denies (units (unk n) date) abdominal pain, unknown) nausea, vomiting, or diarrhea (unknown) (no (unknown) (unknown) : denies (units (unk n) date) dysuria, hematuria, unknown) urinary retention, frequency or incontinence (unknown) (no (unknown) (unknown) Gabapentin (units () date) (Gabapentin 300 Mg unknown) Capsule) 300 mg PO NOW ONE (unknown) (no (unknown) (unknown) General (units (unkno wn) date) unknown) (unknown) (no (unknown) (unknown) General: (units (o wn) date) cooperative, unknown) comfortable, in no acute distress, well developed and well (unknown) (no (unknown) (unknown) General: denies (units (unknown) date) fever, chills, unknown) malaise, sweats, endorses daily and crippling (unknown) (no (unknown) (unknown) GenericComposite[P (units (unknown) date) lt Count 290 unknown) (150-400) X10^3/uL ] (unknown) (no (unknown) (unknown) GenericComposite[R (units (unknown) date) BC 4.27 unknown) (4.0-5.2) X10^6/uL ] (unknown) (no (unknown) (unknown) GenericComposite[W (units (unknown) date) BC 13.1 H unknown) (4.5-11.0) X10^3/uL ] (unknown) (no (unknown) (unknown) Giant cell (units (unk nown) date) arteritis unknown) considered, but thought unlikely given lack of unilateral (unknown) (no (unknown) (unknown) Globulin 2.5 (units (unknown) date) (1.7-4.1) g/dL unknown) (unknown) (no (unknown) (unknown) Glucose 142 H (units (unknown) date) (70-100) mg/dL unknown) (unknown) (no (unknown) (unknown) HPI - Neck (units (unk nown) date) Pain/Injury unknown) (unknown) (no (unknown) (unknown) HPI Narrative: (units (unknown) date) unknown) (unknown) (no (unknown) (unknown) HTN Emergency (units ( unknown) date) considered, but unknown) thought unlikely given normal vitals (unknown) (no (unknown) (unknown) Hct 40.4 (units (unkn own) date) (36-46) % unknown) (unknown) (no (unknown) (unknown) Head/Neck: denies (units (unknown) date) headache, neck unknown) pain, dizziness (unknown) (no (unknown) (unknown) Head: atraumatic, (units (unknown) date) symmetrical facial unknown) expressions (unknown) (no (unknown) (unknown) Hgb 13.6 (units (unkn own) date) (12.0-16.0) g/dL unknown) (unknown) (no (unknown) (unknown) History of Present (units (unknown) date) Illness unknown) (unknown) (no (unknown) (unknown) I was immediately (units (unknown) date) available in the unknown) department for consultation. Documentation (unknown) (no (unknown) (unknown) IMPRESSION:? (units (u nknown) date) unknown) (unknown) (no (unknown) (unknown) IMPRESSION:? Loss (units (unknown) date) of normal cervical unknown) lordosis.? No fracture. (unknown) (no (unknown) (unknown) INDICATIONS:? head (units (unknown) date) and neck pain x3 unknown) weeks (unknown) (no (unknown) (unknown) Image quality:? (units (unknown) date) Excellent.? unknown) (unknown) (no (unknown) (unknown) Imaging Data (units (u nknown) date) unknown) (unknown) (no (unknown) (unknown) Independently (units ( unknown) date) reviewed vitals unknown) signs and nursing notes. (unknown) (no (unknown) (unknown) Initial Vital (units ( unknown) date) Signs unknown) (unknown) (no (unknown) (unknown) Initial Vital (units ( unknown) date) Signs: unknown) (unknown) (no (unknown) (unknown) Instructions: (units ( unknown) date) Fibromyalgia unknown) (Alternative Therapy), Complex Regional Pain (unknown) (no (unknown) (unknown) Ketorolac (units (unkn own) date) Tromethamine unknown) (Ketorolac 30 Mg/Ml Vial) 15 mg IM NOW ONE (unknown) (no (unknown) (unknown) Lab Data (units (unkno wn) date) unknown) (unknown) (no (unknown) (unknown) Labs: (units (unkno wn) date) unknown) (unknown) (no (unknown) (unknown) Latuda 2 months (units (unknown) date) ago cold turkey unknown) because she ran out and did not have a (unknown) (no (unknown) (unknown) Lidocaine (units (unkn own) date) (Lidocaine Patch 1 unknown) Each Adh..Patch) 1 each TOP NOW ONE (unknown) (no (unknown) (unknown) Lymph # (Auto) (units (unknown) date) 800 L unknown) (5322-7111) /uL (unknown) (no (unknown) (unknown) Lymph % (Auto) (units (unknown) date) 6.5 L (25-40) % unknown) (unknown) (no (unknown) (unknown) MCH 31.9 (units (unkn own) date) (26-34) PG unknown) (unknown) (no (unknown) (unknown) MCHC 33.7 (units (unk nown) date) (30-36) % unknown) (unknown) (no (unknown) (unknown) MCV 94.6 (units (unkn own) date) (80-100) fL unknown) (unknown) (no (unknown) (unknown) MDM - Neck (units (unk nown) date) Pain/Injury unknown) (unknown) (no (unknown) (unknown) MDM Narrative (units ( unknown) date) unknown) (unknown) (no (unknown) (unknown) MSK: denies joint (units (unknown) date) pain, muscle unknown) weakness (unknown) (no (unknown) (unknown) MSK: moves all (units ( unknown) date) extremities, unknown) ambulatory w/steady gait, neurovascularly intact, no (unknown) (no (unknown) (unknown) Medical decision (units (unknown) date) making narrative: unknown) (unknown) (no (unknown) (unknown) Meningitis (units (unkn own) date) considered, but unknown) thought unlikely given lack of Neelima'sCass's (unknown) (no (unknown) (unknown) Methocarbamol (units ( unknown) date) (Methocarbamol 500 unknown) Mg Tablet) 750 mg PO NOW ONE (unknown) (no (unknown) (unknown) Mode of arrival: (units (unknown) date) Ambulatory unknown) (unknown) (no (unknown) (unknown) [place] # (Auto) 200 (units (unknown) date) (0-900) /uL unknown) (unknown) (no (unknown) (unknown) [place] % (Auto) 1.7 (units (unknown) date) L (3-14) % unknown) (unknown) (no (unknown) (unknown) Mouth/Throat: (units ( unknown) date) uvula midline, unknown) moist mucus membranes (unknown) (no (unknown) (unknown) Narrative (units (unkn own) date) unknown) (unknown) (no (unknown) (unknown) Narrative: (units (unk nown) date) unknown) (unknown) (no (unknown) (unknown) Neck: supple, (units ( unknown) date) atraumatic, without unknown) lymphadenopathy. Patient has left trapezius (unknown) (no (unknown) (unknown) Neuro: denies (units ( unknown) date) numbness, tingling unknown) (unknown) (no (unknown) (unknown) Neuro: normal (units ( unknown) date) speech and unknown) cognition, A+O x3, normal tone (unknown) (no (unknown) (unknown) Neut # (Auto) (units ( unknown) date) 84520 H unknown) (4393-1004) /uL (unknown) (no (unknown) (unknown) Neut % (Auto) (units ( unknown) date) 91.5 H (50-75) unknown) % (unknown) (no (unknown) (unknown) New (units (unkno wn) date) unknown) (unknown) (no (unknown) (unknown) Noncontrast 3 mm (units (unknown) date) thick sections unknown) acquired from the skull base to the T4 level.? (unknown) (no (unknown) (unknown) Noncontrast 4.5 mm (units (unknown) date) thick angled axial unknown) sections acquired from the foramen magnum (unknown) (no (unknown) (unknown) Nose: nares (units (un known) date) patent, no unknown) rhinorrhea (unknown) (no (unknown) (unknown) Ordered: (units (unkno wn) date) unknown) (unknown) (no (unknown) (unknown) Orders (units (unkno wn) date) unknown) (unknown) (no (unknown) (unknown) Other serious (units (u nknown) date) diagnoses unknown) considered unlikely given lack of red flag findings such (unknown) (no (unknown) (unknown) Oxycodone/Acetamino (units (unknown) date) phen unknown) (Oxycodone/Acetamin ophen 5/325 Tablet) 1 tab PO NOW ONE (unknown) (no (unknown) (unknown) PROCEDURE:? CT (units (unknown) date) CERVICAL SPINE WO unknown) CON (unknown) (no (unknown) (unknown) PROCEDURE:? CT (units (unknown) date) HEAD/BRAIN WO CON unknown) (unknown) (no (unknown) (unknown) Patient (units (unkno wn) date) Disposition: Home unknown) (unknown) (no (unknown) (unknown) Patient History (units (unknown) date) unknown) (unknown) (no (unknown) (unknown) Patient has been (units (unknown) date) given strict return unknown) to ER precautions for any new or worsening (unknown) (no (unknown) (unknown) Patient is (units (unk nown) date) appropriate and unknown) amenable to discharge home. Vital signs are stable (unknown) (no (unknown) (unknown) Patient states she (units (unknown) date) does not want to unknown) start taking Latuda again because she did (unknown) (no (unknown) (unknown) Patient: (units (unkno wn) date) brittni [address] unknown) MR#: [id number] (unknown) (no (unknown) (unknown) Penicillins (units (un known) date) Allergy Verified unknown) 07/07/21 12:53 (unknown) (no (unknown) (unknown) Peripheral (units (unk nown) date) neuropathy unknown) (unknown) (no (unknown) (unknown) Please see how the (units (unknown) date) gabapentin helps unknown) your pain, there are other interventions (unknown) (no (unknown) (unknown) Please try and (units (unknown) date) stay active as your unknown) body allows, this will help release (unknown) (no (unknown) (unknown) Potassium 4.6 (units (unknown) date) (3.4-5.1) mmol/L unknown) (unknown) (no (unknown) (unknown) Test (units (unknown) date) Results Negative unknown) (unknown) (no (unknown) (unknown) is (units (u nknown) date) negative, CRP ESR unknown) are not elevated. UA shows a trace of blood, (unknown) (no (unknown) (unknown) Prescriptions: (units (unknown) date) unknown) (unknown) (no (unknown) (unknown) Psych: mental (units ( unknown) date) status is grossly unknown) normal, congruent mood, normal affect, pleasant (unknown) (no (unknown) (unknown) Pulse Oximetry 98 (units (unknown) date) 07/07/21 12:48 unknown) (unknown) (no (unknown) (unknown) Pulse Oximetry 98 (units (unknown) date) unknown) (unknown) (no (unknown) (unknown) Pulse Rate 65 (units (unknown) date) 07/07/21 12:48 unknown) (unknown) (no (unknown) (unknown) Pulse Rate 65 (units ( unknown) date) unknown) (unknown) (no (unknown) (unknown) Qualifiers: (units (un known) date) unknown) (unknown) (no (unknown) (unknown) RDW 13.5 (units (unkn own) date) (11.6-14.8) % unknown) (unknown) (no (unknown) (unknown) Referrals: (units (unk nown) date) unknown) (unknown) (no (unknown) (unknown) Related Data (units (u nknown) date) unknown) (unknown) (no (unknown) (unknown) Respiratory Rate (units (unknown) date) 16 07/07/21 12:48 unknown) (unknown) (no (unknown) (unknown) Respiratory Rate (units (unknown) date) 16 unknown) (unknown) (no (unknown) (unknown) Respiratory: (units (u nknown) date) denies dyspnea, unknown) cough, orthopnea (unknown) (no (unknown) (unknown) Respiratory: (units (u nknown) date) normal effort, able unknown) to speak in complete sentences, no audible (unknown) (no (unknown) (unknown) Result diagrams: (units (unknown) date) unknown) (unknown) (no (unknown) (unknown) Review of Systems (units (unknown) date) unknown) (unknown) (no (unknown) (unknown) Sagittal (units (unkno wn) date) unknown) (unknown) (no (unknown) (unknown) Signed By: (units (unk nown) date) unknown) (unknown) (no (unknown) (unknown) Sinuses:? (units (unkn own) date) Visualized sinuses unknown) and mastoids are clear.? (unknown) (no (unknown) (unknown) Skin: brisk (units (un known) date) capillary refill, unknown) no rash, no erythema (unknown) (no (unknown) (unknown) Skin: denies rash, (units (unknown) date) itching, skin unknown) lesions or other (unknown) (no (unknown) (unknown) Skull and face:? (units (unknown) date) Calvarium and unknown) visualized facial bones are intact, without (unknown) (no (unknown) (unknown) Smoking Status: (units (unknown) date) Current every day unknown) smoker (unknown) (no (unknown) (unknown) Smoking Status: (units (unknown) date) Current every day unknown) smoker (unknown) (no (unknown) (unknown) Social History (units (unknown) date) (Reviewed 07/07/21 unknown) @ 15:40 by Latonya Mishra [facility]) (unknown) (no (unknown) (unknown) Sodium 138 (units (u nknown) date) (137-145) mmol/L unknown) (unknown) (no (unknown) (unknown) Soft tissues:? (units (unknown) date) Prevertebral soft unknown) tissues are normal in thickness.? No (unknown) (no (unknown) (unknown) Stated Complaint: (units (unknown) date) NECK PAIN TINGLING unknown) OF HAND AND ARMS TIRED (unknown) (no (unknown) (unknown) Subarachnoid (units (u nknown) date) hemorrhage, but unknown) unlikely as patient denies sudden onset of pain, (unknown) (no (unknown) (unknown) Substance Use (units ( unknown) date) Type: does not use unknown) (unknown) (no (unknown) (unknown) Sulfa (Sulfonamide (units (unknown) date) Allergy Verified unknown) 07/07/21 12:53 (unknown) (no (unknown) (unknown) Syndrome, DI for (units (unknown) date) Neck Pain unknown) (unknown) (no (unknown) (unknown) TECHNIQUE:? (units (un known) date) unknown) (unknown) (no (unknown) (unknown) Temperature 98 F (units (unknown) date) 07/07/21 12:48 unknown) (unknown) (no (unknown) (unknown) Temperature 98 F (units (unknown) date) unknown) (unknown) (no (unknown) (unknown) This is a (units (unkn own) date) 26-year-old female unknown) who presents to the emergency department (unknown) (no (unknown) (unknown) This is a (units (unkn own) date) 26-year-old female unknown) with 5 children, history of anxiety, depression, (unknown) (no (unknown) (unknown) This is treated (units (unknown) date) with multi unknown) modalities including SSRIs, complementary therapies (unknown) (no (unknown) (unknown) Tan Nguyen (units (unknown) date) MD Jamison unknown) [Physician] - (unknown) (no (unknown) (unknown) Time Seen by (units (u nknown) date) Provider: 07/07/21 unknown) 14:42 (unknown) (no (unknown) (unknown) Total Bilirubin (units (unknown) date) 0.2 (0.2-1.3) unknown) mg/dL (unknown) (no (unknown) (unknown) Total Protein (units ( unknown) date) 7.2 (6.3-8.2) unknown) g/dL (unknown) (no (unknown) (unknown) Tylenol and states (units (unknown) date) none of that was unknown) very helpful. Patient endorses lidocaine (unknown) (no (unknown) (unknown) Tylenol, (units (unkno wn) date) gabapentin, and a unknown) lidocaine patch in the emergency department she (unknown) (no (unknown) (unknown) Ur Culture (units (unk nown) date) Indicated? unknown) Culture not indicate (unknown) (no (unknown) (unknown) Ur Leukocyte (units (u nknown) date) Esterase unknown) Negative (NEGATIVE) (unknown) (no (unknown) (unknown) Ur Specific (units (un known) date) [place] 1.015 unknown) (1.000-1.035) (unknown) (no (unknown) (unknown) Ur Squamous Epith (units (unknown) date) Cells 0-1 /hpf unknown) (0-5/HPF) (unknown) (no (unknown) (unknown) Urine Appearance (units (unknown) date) Cloudy unknown) (unknown) (no (unknown) (unknown) Urine Bacteria (units (unknown) date) None seen (None) unknown) (unknown) (no (unknown) (unknown) Urine Bilirubin (units (unknown) date) Negative unknown) (NEGATIVE) (unknown) (no (unknown) (unknown) Urine Color (units (un known) date) Yellow unknown) (unknown) (no (unknown) (unknown) Urine Glucose (UA) (units (unknown) date) Negative unknown) (Negative) g/dL (unknown) (no (unknown) (unknown) Urine Ketones (units ( unknown) date) Negative unknown) (NEGATIVE) (unknown) (no (unknown) (unknown) Urine Nitrate (units ( unknown) date) Negative unknown) (Negative) (unknown) (no (unknown) (unknown) Urine Occult Blood (units (unknown) date) Trace-lysed unknown) (Negative) (unknown) (no (unknown) (unknown) Urine Protein (units ( unknown) date) Negative unknown) (Negative) (unknown) (no (unknown) (unknown) Urine RBC (units (unkn own) date) 0-1/hpf (0-5/HPF) unknown) (unknown) (no (unknown) (unknown) Urine Specific (units (unknown) date) [place] 1.010 unknown) (unknown) (no (unknown) (unknown) Urine Urobilinogen (units (unknown) date) 0.2 (0.2) unknown) E.U./dL (unknown) (no (unknown) (unknown) Urine WBC (units (unkn own) date) 0-1/hpf (0-5/HPF) unknown) (unknown) (no (unknown) (unknown) Urine pH 7.5 (units (unknown) date) (4.5-8.0) unknown) (unknown) (no (unknown) (unknown) Ventricles (units (unk nown) date) unknown) (unknown) (no (unknown) (unknown) Visualized (units (unk nown) date) superior ribs are unknown) intact.? (unknown) (no (unknown) (unknown) Vital Signs (units (un known) date) unknown) (unknown) (no (unknown) (unknown) Vital signs: (units (u nknown) date) unknown) (unknown) (no (unknown) (unknown) [Embedded Image (units (unknown) date) Not Available] unknown) (unknown) (no (unknown) (unknown) activity, stay (units (unknown) date) hydrated, eat food unknown) with ibuprofen so that you do not get an (unknown) (no (unknown) (unknown) alcohol intake (units (unknown) date) frequency: a few unknown) times a week (unknown) (no (unknown) (unknown) already has (units (un known) date) opiates and muscle unknown) relaxers at home but when she was offered (unknown) (no (unknown) (unknown) and cooperative (units (unknown) date) unknown) (unknown) (no (unknown) (unknown) and coronal (units (un known) date) reformats were then unknown) constructed.? For radiation dose reduction, the (unknown) (no (unknown) (unknown) another (units (unkno wn) date) evaluation. unknown) Headache considerations include, but not limited to: (unknown) (no (unknown) (unknown) another (units (unkno wn) date) prescription of unknown) steroids, muscle relaxers, and morphine tablets without (unknown) (no (unknown) (unknown) any other testing (units (unknown) date) completed. Patient unknown) states that she has had 2 urine test this (unknown) (no (unknown) (unknown) appointment. Let (units (unknown) date) them know you were unknown) seen in the Emergency Department and that we (unknown) (no (unknown) (unknown) are all normal (units (unknown) date) without suspicion unknown) for abnormality. Great news! (unknown) (no (unknown) (unknown) are normal in size (units (unknown) date) and shape.? unknown) (unknown) (no (unknown) (unknown) asked that you be (units (unknown) date) seen for follow-up. unknown) We will electronically transmit a record (unknown) (no (unknown) (unknown) best, please go to (units (unknown) date) your appointment on unknown) July 16, follow-up with your primary (unknown) (no (unknown) (unknown) brain/head/C-spine. (units (unknown) date) CT head shows no unknown) acute intracranial abnormality, CT C-spine (unknown) (no (unknown) (unknown) care provider for a (units (unknown) date) referral to unknown) physical therapy and /or advanced imaging if you (unknown) (no (unknown) (unknown) changes, inability (units (unknown) date) to turn her head, unknown) to return to the emergency department for (unknown) (no (unknown) (unknown) chills, (units (unkno wn) date) diaphoresis, unknown) abdominal pain, states that she threw up yesterday a.m. but (unknown) (no (unknown) (unknown) cognitive (units (unkn own) date) dysfunction, and unknown) peripheral neuropathy. These are all symptoms of (unknown) (no (unknown) (unknown) complaining of (units (unknown) date) left-sided neck unknown) pain for the last 3 weeks, peripheral neuropathy (unknown) (no (unknown) (unknown) concerning (units (unk nown) date) symptoms, such as unknown) [fever greater than 101F, chills, worsening pain, (unknown) (no (unknown) (unknown) days, and oxycodone (units (unknown) date) with muscle unknown) relaxers. She states that it did not help much, (unknown) (no (unknown) (unknown) declined and (units (u nknown) date) states that we are unknown) not doing anything for her. Or there was a (unknown) (no (unknown) (unknown) denies any (units (unk nown) date) diarrhea, rash unknown) isolated pain in 1 area. Patient states that she (unknown) (no (unknown) (unknown) diclofenac sodium (units (unknown) date) 1 % topical gel 2 g unknown) TOPICAL QID #100 g 07/07/21 (unknown) (no (unknown) (unknown) elevated, patient (units (unknown) date) states that unknown) lidocaine patches were the most helpful in she (unknown) (no (unknown) (unknown) establish care (units (unknown) date) with one of the unknown) [facility] primary care providers. (unknown) (no (unknown) (unknown) fatigue (units (unkno wn) date) unknown) (unknown) (no (unknown) (unknown) feels depressed, (units (unknown) date) she has a unknown) psychiatrist appointment on for July 16, 2021. (unknown) (no (unknown) (unknown) fibromyalgia (units (u nknown) date) symptoms. Opted to unknown) rule out tumor or fracture with a CT (unknown) (no (unknown) (unknown) fibromyalgia which (units (unknown) date) is stemming from unknown) undertreated neurochemicals your brain. (unknown) (no (unknown) (unknown) findings, pain in (units (unknown) date) advent, vision unknown) change (unknown) (no (unknown) (unknown) following (units (unkn own) date) unknown) (unknown) (no (unknown) (unknown) from her neck. (units (unknown) date) She went to [facility] unknown) emergency, was prescribed steroids for 5 (unknown) (no (unknown) (unknown) gabapentin 300 mg (units (unknown) date) capsule 600 mg PO unknown) TID 14 Days #84 caplet 07/07/21 (unknown) (no (unknown) (unknown) groomed (units (unkno wn) date) unknown) (unknown) (no (unknown) (unknown) hand (units (unkno wn) date) unknown) (unknown) (no (unknown) (unknown) has been reviewed. (units (unknown) date) I agree with unknown) assessment and plan. (unknown) (no (unknown) (unknown) hematomas.? No (units (unknown) date) apical unknown) pneumothoraces.? (unknown) (no (unknown) (unknown) ice is safe, if (units (unknown) date) she develops any unknown) worsening of her symptoms, weakness, vision (unknown) (no (unknown) (unknown) in all of her (units ( unknown) date) extremities, unknown) fatigue, depressed mood, and difficulty completing (unknown) (no (unknown) (unknown) include prozac and (units (unknown) date) gabapentin if not unknown) improved on prozac. Your CT brain shows no (unknown) (no (unknown) (unknown) incontinence, (units ( unknown) date) dizziness, vision unknown) changes. (unknown) (no (unknown) (unknown) interface is (units (u nknown) date) normal.? unknown) (unknown) (no (unknown) (unknown) lesions.? (units (unkn own) date) unknown) (unknown) (no (unknown) (unknown) lidocaine 5 % (units ( unknown) date) topical patch 1 unknown) patch TOPICAL BID PRN #15 ea 07/07/21 (unknown) (no (unknown) (unknown) lidocaine patches (units (unknown) date) a little from unknown) oxycodone. She was given Toradol, (unknown) (no (unknown) (unknown) lidocaine patches, (units (unknown) date) Voltaren gel, and unknown) Robaxin. Encourage patient to stay active, (unknown) (no (unknown) (unknown) like cognitive (units (unknown) date) behavioral therapy, unknown) other oral medications which may work for (unknown) (no (unknown) (unknown) like exercise, (units (unknown) date) yoga, acupuncture, unknown) talk therapy, and first line medications (unknown) (no (unknown) (unknown) likely (units (unkno wn) date) contributing to her unknown) mild leukocytosis of 13.1. CRP and ESR were not (unknown) (no (unknown) (unknown) lordosis.? (units (unk nown) date) unknown) (unknown) (no (unknown) (unknown) matter (units (unkno wn) date) unknown) (unknown) (no (unknown) (unknown) medications for (units (unknown) date) this neck pain and unknown) neuropathy without any improvement in her (unknown) (no (unknown) (unknown) medications or (units (unknown) date) stopping them unknown) altogether. Please continue taking the Prozac as (unknown) (no (unknown) (unknown) methocarbamol 750 (units (unknown) date) mg tablet 750 mg PO unknown) Q8H PRN #20 tab 07/07/21 (unknown) (no (unknown) (unknown) methocarbamol, (units (unknown) date) Percocet, lidocaine unknown) patch for her pain today. She requested a (unknown) (no (unknown) (unknown) muscle relaxers as (units (unknown) date) necessary for unknown) muscle spasms. Please use heat, light (unknown) (no (unknown) (unknown) muscle tension to (units (unknown) date) palpation, no rash, unknown) no masses no tenderness over C-spine (unknown) (no (unknown) (unknown) mutual decision (units (unknown) date) making between unknown) patient and myself to start her on gabapentin (unknown) (no (unknown) (unknown) no other vomiting. (units (unknown) date) States that she unknown) had a negative COVID test at home, she (unknown) (no (unknown) (unknown) none of those have (units (unknown) date) helped at all. unknown) Patient denies any lower extremity weakness, (unknown) (no (unknown) (unknown) normal cervical (units (unknown) date) curvature but no unknown) fracture, stenosis, masses, and soft tissues (unknown) (no (unknown) (unknown) not think it (units (u nknown) date) helped her. unknown) Patient has been using lidocaine patches which she (unknown) (no (unknown) (unknown) not worst of life, (units (unknown) date) or neck pain, CT unknown) ruled this out. (unknown) (no (unknown) (unknown) of 3 weeks of (units ( unknown) date) left-sided neck unknown) pain, neuropathy, fatigue, multiple locations of (unknown) (no (unknown) (unknown) of today's note if (units (unknown) date) your PCP is in our unknown) system (unknown) (no (unknown) (unknown) on repeat (units (unkn own) date) examination is unknown) unremarkable. Patient has been informed of results. (unknown) (no (unknown) (unknown) pain started on (units (unknown) date) 06/20/2021 with unknown) neuropathy symptoms down into her fingertips (unknown) (no (unknown) (unknown) pain, and has (units ( unknown) date) tried opiates, unknown) muscle relaxers, lidocaine patches, incident (unknown) (no (unknown) (unknown) pancreatitis, and (units (unknown) date) leukemia who unknown) presents to the emergency department complaining (unknown) (no (unknown) (unknown) paravertebral (units ( unknown) date) unknown) (unknown) (no (unknown) (unknown) patches as being (units (unknown) date) the most helpful. unknown) She states she stopped taking Latuda cold (unknown) (no (unknown) (unknown) patient (units (unkno wn) date) unknown) (unknown) (no (unknown) (unknown) patient states she (units (unknown) date) is on her menses. unknown) No leukocytes, bacteria, or nitrites. (unknown) (no (unknown) (unknown) persistent (units (unk nown) date) vomiting or other unknown) bothersome symptoms] (unknown) (no (unknown) (unknown) prescriber. She (units (unknown) date) states that she unknown) still is taking Prozac 20 mg daily, she states (unknown) (no (unknown) (unknown) prescription for (units (unknown) date) something less unknown) strong and was given tramadol, gabapentin, (unknown) (no (unknown) (unknown) questions and (units ( unknown) date) concerns answered unknown) at this time. 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 Patient states that she stop taking (unknown) (no (unknown) (unknown) size.? (units (unkno wn) date) unknown) (unknown) (no (unknown) (unknown) starting (units (unkno wn) date) approximately 2 unknown) weeks ago. Patient states that her left-sided neck (unknown) (no (unknown) (unknown) states are the (units (unknown) date) most helpful, unknown) taking morphine tabs, muscle relaxers, and states (unknown) (no (unknown) (unknown) states that the (units (unknown) date) morphine was too unknown) strong for her, she had some relief from (unknown) (no (unknown) (unknown) suspicious (units (unk nown) date) unknown) (unknown) (no (unknown) (unknown) symptoms. Patient (units (unknown) date) understands to unknown) follow up closely with outpatient providers as (unknown) (no (unknown) (unknown) symptoms. She has (units (unknown) date) been afebrile, unknown) completed 2 courses of steroids, this is (unknown) (no (unknown) (unknown) tenderness with (units (unknown) date) exam, without unknown) guarding or rebound. (unknown) (no (unknown) (unknown) that she has been (units (unknown) date) to would be unknown) emergency department 2 times for this neck pain (unknown) (no (unknown) (unknown) thinners, etc. (units (unknown) date) unknown) (unknown) (no (unknown) (unknown) to the (units (unkno wn) date) unknown) (unknown) (no (unknown) (unknown) tramadol 50 mg (units (unknown) date) tablet (Ultram) 50 unknown) mg PO BID PRN #20 tab 07/07/21 (unknown) (no (unknown) (unknown) turkey 2 months (units (unknown) date) ago, she is on 20 unknown) mg of Prozac daily, has been using all these (unknown) (no (unknown) (unknown) ulcer. I wish you (units (unknown) date) the best with your unknown) follow-up. (unknown) (no (unknown) (unknown) until she sees her (units (unknown) date) psychiatrist in 9 unknown) days to help treat her for her likely (unknown) (no (unknown) (unknown) vancomycin AdvReac (units (unknown) date) Redness of unknown) Verified 07/07/21 12:53 (unknown) (no (unknown) (unknown) vertex, with (units (u nknown) date) coronal and unknown) sagittal reformats.? For radiation dose reduction, the (unknown) (no (unknown) (unknown) was used:? (units (unk nown) date) automated exposure unknown) control, adjustment of mA and/or kV according to (unknown) (no (unknown) (unknown) weakness (units (unkno wn) date) unknown) (unknown) (no (unknown) (unknown) week for (units (unknown) date) and they were both unknown) negative. Patient endorses a headache, (unknown) (no (unknown) (unknown) wheezing, stridor, (units (unknown) date) or rales. No unknown) retractions or tachypnea. (unknown) (no (unknown) (unknown) you are, take (units ( unknown) date) ibuprofen or unknown) Tylenol with food and water as needed for your pain, (unknown) (no (unknown) (unknown) you, and there is (units (unknown) date) no evidence that unknown) opioids are effective treatment of this. Result panel 14 (unknown) (no date) (unknown) (unknown) (no value) (units (un known) unknown) (unknown) (no date) (unknown) (unknown) Mixed gram + (units ( unknown) aureliano. Deemed unknown) unsuitable for further studies. Social History date description facility (no date) Smokes tobacco daily ([facility] Vital Signs date measurement value units +0000 BMI BMI 22.6 kg/m2 +0000 BP_diastolic BP_diastolic 59 mm[H g] +0000 BP_systolic BP_systolic 116 mm[Hg] +0000 heart_rate heart_rate 65 /min +0000 height_metric height_metric 167.64 cm +0000 height_standard height_standard 66 in +0000 respiration_rate respiration_rate 16 /min +0000 temperature_metric temperature_metric 37.06 C +0000 temperature_standard temperature_standard 9 8.7 F +0000 weight_metric weight_metric 63.5 kg +0000 weight_standard weight_standard 139.99 lb
[2021-09-10 19:02] LABS: BILIRUBIN,URINE NEGATIVE (NEGATIVE); GLUCOSE, URINE (UA) NEGATIVE (NEGATIVE); KETONES,URINE (UA) TRACE mg/dL (NEGATIVE); LEUKOCYTE ESTERASE, URINE NEGATIVE (NEGATIVE); NITRITE,URINE NEGATIVE (NEGATIVE); OCCULT BLOOD,URINE NEGATIVE (NEGATIVE); PROTEIN,URINE TRACE mg/dL (NEGATIVE); UROBILINOGEN,URINE 1 (NORMAL) E.U./dL (NORMAL)
[2021-09-10 19:03] LABS: CLARITY,URINE CLEAR (CLEAR)
[2021-09-10 19:04] LABS: HCG UR QUAL NEGATIVE
[2021-09-10 19:19] LABS: ALBUMIN/GLOBULIN RATIO 2.2 (1.0-2.2); ALKALINE PHOSPHATASE 42 IU/L (42-121); ALT ALANINE AMINOTRANSFERASE 14 IU/L (10-60); AST ASPARTATE AMINOTRANSFERASE 16 IU/L (10-42); BILIRUBIN,TOTAL 0.9 mg/dL (0.2-1.0); BUN - BLOOD UREA NITROGEN 11 mg/dL (6-20); CALCIUM 9.8 mg/dL (8.5-10.3); CARBON DIOXIDE - CO2 28 mmol/L (21-32); CHLORIDE 103 mmol/L (101-111); CREATININE 0.7 mg/dL (0.4-1.0); GFR - MDRD 100 (>89); GLUCOSE 93 mg/dL (70-100); POTASSIUM 3.4 mmol/L (3.5-5.0); SODIUM 141 mmol/L (135-145); TOTAL PROTEIN 7.3 g/dL (6.7-8.2)
[2021-09-10 19:24] LABS: CRP - C-REACTIVE PROTEIN < 1.0 mg/dL (0-1.0)
[2021-09-10 20:39] VITALS: BP 119/84
== END 2021-09-10 20:38 | disposition home or self-care (01) ==
LOC: ED 18:12
DX: G43.909 Migraine, unspecified, not intractable, without status migrainosus (principal); R21 Rash and other nonspecific skin eruption
CPT/HCPCS: 36415; 80053; 81003; 81025; 85025; 85651; 86140; 86780; 96374; 99282; 99283; J2765; 81001; 87086

== ENCOUNTER 2022-03-16 08:00 | Outpatient (CLI) | payer OTHER ==
[2022-03-16 18:01] LABS: BASOPHILS # (AUTO) 0.1 10^3/uL (0.0-0.1); BASOPHILS % (AUTO) 0.9 %; EOSINOPHILS # (AUTO) 0.6 10^3/uL (0.0-0.7); EOSINOPHILS % (AUTO) 9.4 %; HCT - HEMATOCRIT 39.7 % (37.0-47.0); LYMPHOCYTES # (AUTO) 2.1 10^3/uL (1.5-3.5); LYMPHOCYTES % (AUTO) 31.2 %; MEAN CORPUSCULAR HEMOGLOBIN 31.1 pg (27.0-31.0); MEAN CORPUSCULAR HGB CONC 32.7 g/dL (32.0-36.0); MONOCYTES # (AUTO) 0.4 10^3/uL (0.0-1.0); MONOCYTES % (AUTO) 5.3 %; NEUTROPHILS # (AUTO) 3.6 10^3/uL (1.5-6.6); NEUTROPHILS % (AUTO) 53.1 %; PLT - PLATELET COUNT 250 10^3/uL (130-450); RED BLOOD COUNT 4.18 10^6/uL (4.20-5.40); RED CELL DISTRIBUTION WIDTH 12.3 % (12.0-15.0); WHITE BLOOD COUNT 6.8 x10^3/uL (4.8-10.8)
[2022-03-16 18:12] LABS: ALBUMIN 4.7 g/dL (3.2-5.5); ALBUMIN/GLOBULIN RATIO 1.7 (1.0-2.2); BILIRUBIN,TOTAL 0.6 mg/dL (0.2-1.0); CALCIUM 9.4 mg/dL (8.5-10.3); CREATININE 0.8 mg/dL (0.4-1.0); POTASSIUM 3.9 mmol/L (3.5-5.0); TOTAL PROTEIN 7.4 g/dL (6.7-8.2)
[2022-03-16 18:33] LABS: BILIRUBIN,URINE NEGATIVE (NEGATIVE); GLUCOSE, URINE (UA) NEGATIVE (NEGATIVE); KETONES,URINE (UA) NEGATIVE (NEGATIVE); LEUKOCYTE ESTERASE, URINE NEGATIVE (NEGATIVE); NITRITE,URINE NEGATIVE (NEGATIVE); OCCULT BLOOD,URINE NEGATIVE (NEGATIVE); PH,URINE 6.5 PH (5.0-7.5); PROTEIN,URINE NEGATIVE (NEGATIVE); UROBILINOGEN,URINE 0.2 (NORMAL) E.U./dL (NORMAL)
[2022-03-16 18:35] LABS: CLARITY,URINE CLEAR (CLEAR)
[2022-03-16 19:02] LABS: BACTERIA,URINE None Seen /HPF (None Seen); RBC,URINE 0-5 /HPF (0-5); SQUAMOUS EPITHELIAL CELL,UR RARE Squamous (<= Few); WBC,URINE 0-3 /HPF (0-5)
[2022-03-16 19:39] LABS: HCG,QUALITATIVE BLOOD NEGATIVE
== END 2022-03-16 23:59 | disposition home or self-care (01) ==
LOC: LAB.N 08:00
PROVIDERS: ATTEND Nurse Practitioner
DX: K52.9 Noninfective gastroenteritis and colitis, unspecified (principal)
CPT/HCPCS: 36415; 80053; 81001; 81003; 82150; 83690; 84703; 85025; 87086

== ENCOUNTER 2022-06-28 18:50 | Emergency (ER) | payer OTHER ==
[2022-06-28 19:46] LABS: BASOPHILS % (AUTO) 0.8 %; EOSINOPHILS % (AUTO) 9.6 %; HCT - HEMATOCRIT 42.7 % (37.0-47.0); HGB - HEMOGLOBIN 14.8 g/dL (12.0-16.0); LYMPHOCYTES % (AUTO) 20.4 %; MEAN CORPUSCULAR HEMOGLOBIN 32.5 pg (27.0-31.0); MEAN CORPUSCULAR HGB CONC 34.7 g/dL (32.0-36.0); MEAN CORPUSCULAR VOLUME 93.6 fL (81.0-99.0); MEAN PLATELET VOLUME 10.6 fL (7.9-10.8); MONOCYTES % (AUTO) 4.6 %; NEUTROPHILS % (AUTO) 64.4 %; PLT - PLATELET COUNT 330 10^3/uL (130-450); RED BLOOD COUNT 4.56 10^6/uL (4.20-5.40); RED CELL DISTRIBUTION WIDTH 12.3 % (12.0-15.0); WHITE BLOOD COUNT 12.3 x10^3/uL (4.8-10.8)
[2022-06-28 19:48] LABS: ABNORMAL LYMPHS % (MANUAL) 0 %; BAND NEUTROPHILS % (MANUAL) 0 %
[2022-06-28 20:11] LABS: BILIRUBIN,URINE NEGATIVE (NEGATIVE); GLUCOSE, URINE (UA) NEGATIVE (NEGATIVE); KETONES,URINE (UA) NEGATIVE (NEGATIVE); LEUKOCYTE ESTERASE, URINE NEGATIVE (NEGATIVE); NITRITE,URINE NEGATIVE (NEGATIVE); OCCULT BLOOD,URINE NEGATIVE (NEGATIVE); PH,URINE 6.5 PH (5.0-7.5); PROTEIN,URINE NEGATIVE (NEGATIVE); UROBILINOGEN,URINE 0.2 (NORMAL) E.U./dL (NORMAL)
[2022-06-28 20:16] LABS: CLARITY,URINE CLEAR (CLEAR)
[2022-06-28 20:17] LABS: HCG UR QUAL NEGATIVE
[2022-06-28] MEDS ORDERED: PROMETHAZINE 25 MG/1 ML VIAL ONE (20:25)
[2022-06-28 20:27] LABS: DIFFERENTIAL COMMENT MANUAL DIFFERENTIAL; EOSINOPHILS # (MANUAL) 0.5 10^3/uL (0-0.7); LYMPHOCYTES # (MANUAL) 2.3 10^3/uL (1.5-3.5); LYMPHOCYTES % (MANUAL) 19 %; MONOCYTES # (MANUAL) 0.4 10^3/uL (0.0-1.0); NEUTROPHILS # (MANUAL) 9.1 10^3/uL (1.5-6.6); PLATELET ESTIMATE, MANUAL NORMAL (130-450,000) (NORMAL); PLATELET MORPHOLOGY NORMAL APPEARANCE (NORMAL); RBC MORPHOLOGY (MULTIPLE) NORMAL APPEARANCE (NORMAL)
[2022-06-28 20:30] LABS: ALBUMIN 4.5 g/dL (3.2-5.5); ALBUMIN/GLOBULIN RATIO 1.7 (1.0-2.2); BILIRUBIN,TOTAL 0.4 mg/dL (0.2-1.0); CALCIUM 9.2 mg/dL (8.5-10.3); CREATININE 0.8 mg/dL (0.4-1.0); POTASSIUM 3.6 mmol/L (3.5-5.0); TOTAL PROTEIN 7.1 g/dL (6.7-8.2)
[2022-06-28] MEDS: IBUPROFEN 800 MG TABLET PO STA (20:32)
[2022-06-28] MEDS: SODIUM CHLORIDE 0.9% 1,000 ML IV STA (20:33)
[2022-06-28] MEDS: PROMETHAZINE INJ 25 MG in SODIUM CHLORIDE 0.9% 50 ML IV STA (20:40)
[2022-06-28 21:01] LABS: B. PARAPERTUSSIS- RESP PCR PAN NOT DETECTED; B. PERTUSSIS- RESP PCR PANEL NOT DETECTED; C. PNEUMONIAE- RESP PCR PANEL NOT DETECTED; CORONAVIRUS 229E-RESP PCR NOT DETECTED; CORONAVIRUS HKU1-RESP PCR NOT DETECTED; CORONAVIRUS NL63-RESP PCR NOT DETECTED; CORONAVIRUS OC43-RESP PCR NOT DETECTED; HUMAN METAPNEUMOVIRUS NOT DETECTED; INFLUENZA A- RESP PCR PANEL NOT DETECTED; INFLUENZA B - RESP PCR PANEL NOT DETECTED; M. PNEUMONIAE- RESP PCR PANEL NOT DETECTED; PARAINFLUENZA VIRUS 1 NOT DETECTED; PARAINFLUENZA VIRUS 2 NOT DETECTED; PARAINFLUENZA VIRUS 3 NOT DETECTED; PARAINFLUENZA VIRUS 4 NOT DETECTED; RHINOVIRUS/ENTEROVIRUS NOT DETECTED; RSV- RESP PCR PANEL NOT DETECTED; SARS-CoV-2 -RESP PCR PANEL NOT DETECTED
[2022-06-28 21:12] VITALS: BP 122/77
[2022-06-28] MEDS: CLINDAMYCIN 900 MG/50 ML 50 ML IV ONE (21:21)
[2022-06-28] MEDS: ACETAMINOPHEN 1,000 MG/100 ML 1,000 MG/100 ML BAG IV ONE (21:38)
--- NOTE | 2022-06-28 22:14 | ED Physician Documentation ---
History of Present Illness - Stated complaint Stated Complaint: BODY ACHES/VOMITTING - Chief complaint Chief Complaint: General - History obtained from History obtained from: Patient, Family - History of Present Illness Timing: How many days ago (4-5) Pain level max: 5 Pain level now: 5 - Additonal information Additional information: Patient is a 27-year-old female who has been sick for the past several days. She states that she has had vomiting, diarrhea, chills. Unknown if she has had fevers or not. She states that she had a lost tampon for about 2 weeks. She states she had malodorous discharge, removed it about 3 days ago. She states the foul-smelling discharge have resolved. No urinary symptoms. Nothing makes it better or worse. She states that she had been on Dilaudid for headaches in the past. She is mainly complaining of generalized body aches. Denies any rash. No pelvic pain. No abdominal pain. Review of Systems Constitutional: reports: Chills. denies: Fever Nose: denies: Rhinorrhea / runny nose, Congestion Respiratory: denies: Cough GI: reports: Nausea, Vomiting, Diarrhea. denies: Abdominal Pain, Hematemesis, Bloody / black stool : denies: Dysuria, Frequency, Hesitancy, Discharge, Now EGA Skin: denies: Rash Musculoskeletal: denies: Neck pain, Back pain Neurologic: denies: Headache PD PAST MEDICAL HISTORY - Past Medical History Past Medical History: Yes Cardiovascular: None Respiratory: None Neuro: Migraines - Past Surgical History Past Surgical History: No - Present Medications Home Medications: Ambulatory Orders Medication Instructions Recorded Confirmed Acetaminophen [Acetaminophen Extra 500 mg PO QID PRN #50 tablet 06/28/21 Strength] Fluoxetine HCl [Prozac] 20 mg PO DAILY 06/28/21 06/28/21 dexAMETHasone [Decadron] 4 mg PO DAILY #5 tablet 06/28/21 oxyCODONE [Roxicodone] 5 mg PO Q6H PRN #15 tablet 06/28/21 tiZANidine [Zanaflex] 4 mg PO Q8H PRN #20 tablet 06/28/21 Morphine Ir [Ms Ir] 15 mg PO Q6H PRN #20 tablet 07/03/21 predniSONE [Deltasone] 20 mg PO [id number] #21 tab 07/03/21 Promethazine [Phenergan] 25 mg PO Q6H PRN #10 tablet 03/17/22 HYDROcod/ACETAM 5/325 [[place] 5/325] 1 - 2 ea PO Q6H PRN #14 tablet 06/28/22 clindamycin HCL [Cleocin HCl] 300 mg PO Q6H #40 cap 06/28/22 - Allergies Allergies/Adverse Reactions: Allergies Allergy/AdvReac Type Severity Reaction Status Date / Time Penicillins Allergy Unknown Verified 06/28/22 19:03 Sulfa (Sulfonamide Allergy Unknown Verified 06/28/22 19:03 Antibiotics) vancomycin Allergy Unknown Verified 06/28/22 19:03 morphine AdvReac Anxiety Verified 06/28/22 19:03 - Social History Does the pt smoke?: No Smoking Status: Never smoker Does the pt drink ETOH?: No Does the pt have substance abuse?: No - Immunizations Immunizations are current?: Yes PD ED PE NORMAL - Vitals Vital signs reviewed: Yes - General General: Alert and oriented X 3, No acute distress, Well developed/nourished - HEENT HEENT: PERRL, Moist mucous membranes - Neck Neck: Supple, no meningeal sign - Cardiac Cardiac: RRR, Strong equal pulses - Respiratory Respiratory: No respiratory distress, Clear bilaterally - Abdomen Abdomen: Soft, Non tender, Non distended - Female Female : Pt declined - Back Back: No CVA TTP, No spinal TTP - Derm Derm: Warm and dry - Extremities Extremities: No edema, No calf tenderness / cord - Neuro Neuro: Alert and oriented X 3 - Psych Psych: Normal mood, Normal affect Results - Vitals Vitals: Vital Signs - 24 hr 06/28/22 06/28/22 06/28/22 19:00 21:06 22:27 Temperature 37.2 C Heart Rate 87 85 89 Respiratory 18 15 12 Rate Blood Pressure 140/85 H 122/77 122/77 O2 Saturation 99 98 100 Oxygen O2 Source Room air - Labs Labs: Laboratory Tests 06/28/22 06/28/22 06/28/22 19:39 19:39 19:52 WBC 12.3 H RBC 4.56 Hgb 14.8 Hct 42.7 MCV 93.6 MCH 32.5 H MCHC 34.7 RDW 12.3 Plt Count 330 MPV 10.6 Neut # (Auto) Not Reportable Lymph # (Auto) Not Reportable [place] # (Auto) Not Reportable Eos # (Auto) Not Reportable Baso # (Auto) Not Reportable Absolute Nucleated RBC Not Reportable Total Counted 100 Band Neuts % (Manual) 0 Abnorm Lymph % (Manual) 0 Nucleated RBC % Not Reportable Neutrophils # (Manual) 9.1 H Lymphocytes # (Manual) 2.3 Monocytes # (Manual) 0.4 Eosinophils # (Manual) 0.5 Basophils # (Manual) 0.0 Differential Comment MANUAL DIFFERENTIAL Platelet Estimate NORMAL (130-450,000) Platelet Morphology NORMAL APPEARANCE RBC Morph Micro Appear NORMAL APPEARANCE Sodium Potassium Chloride Carbon Dioxide Anion Gap BUN Creatinine Estimated GFR (MDRD) Glucose Lactic Acid 0.8 Calcium Total Bilirubin AST ALT Alkaline Phosphatase Total Protein Albumin Globulin Albumin/Globulin Ratio Lipase Urine Color YELLOW Urine Clarity CLEAR Urine pH 6.5 Ur Specific [place] 1.010 Urine Protein NEGATIVE Urine Glucose (UA) NEGATIVE Urine Ketones NEGATIVE Urine Occult Blood NEGATIVE Urine Nitrite NEGATIVE Urine Bilirubin NEGATIVE Urine Urobilinogen 0.2 (NORMAL) Ur Leukocyte Esterase NEGATIVE Ur Microscopic Review NOT INDICATED Urine Culture Comments NOT INDICATED Urine HCG, Qual Nasal Adenovirus (PCR) Nasal B. parapertussis DNA (PCR) Nasal Coronavir 229E PCR Nasal Coronavir HKU1 PCR Nasal Coronavir NL63 PCR Nasal Coronavir OC43 PCR Nasal Enterovir/Rhinovir PCR Nasal Influenza B PCR Nasal Influenza A PCR Nasal Parainfluen 1 PCR Nasal Parainfluen 2 PCR Nasal Parainfluen 3 PCR Nasal Parainfluen 4 PCR Nasal RSV (PCR) Nasal B.pertussis DNA PCR Nasal C.pneumoniae (PCR) Oscar Human Metapneumo PCR Nasal M.pneumoniae (PCR) Nasal SARS-CoV-2 (PCR) 06/28/22 06/28/22 06/28/22 19:52 19:56 20:12 WBC RBC Hgb Hct MCV MCH MCHC RDW Plt Count MPV Neut # (Auto) Lymph # (Auto) [place] # (Auto) Eos # (Auto) Baso # (Auto) Absolute Nucleated RBC Total Counted Band Neuts % (Manual) Abnorm Lymph % (Manual) Nucleated RBC % Neutrophils # (Manual) Lymphocytes # (Manual) Monocytes # (Manual) Eosinophils # (Manual) Basophils # (Manual) Differential Comment Platelet Estimate Platelet Morphology RBC Morph Micro Appear Sodium 138 Potassium 3.6 Chloride 102 Carbon Dioxide 28 Anion Gap 8.0 BUN 19 Creatinine 0.8 Estimated GFR (MDRD) 85 L Glucose 93 Lactic Acid Calcium 9.2 Total Bilirubin 0.4 AST 19 ALT 22 Alkaline Phosphatase 48 Total Protein 7.1 Albumin 4.5 Globulin 2.6 Albumin/Globulin Ratio 1.7 Lipase 29 Urine Color Urine Clarity Urine pH Ur Specific [place] Urine Protein Urine Glucose (UA) Urine Ketones Urine Occult Blood Urine Nitrite Urine Bilirubin Urine Urobilinogen Ur Leukocyte Esterase Ur Microscopic Review Urine Culture Comments Urine HCG, Qual NEGATIVE Nasal Adenovirus (PCR) NOT DETECTED Nasal B. parapertussis DNA (PCR) NOT DETECTED Nasal Coronavir 229E PCR NOT DETECTED Nasal Coronavir HKU1 PCR NOT DETECTED Nasal Coronavir NL63 PCR NOT DETECTED Nasal Coronavir OC43 PCR NOT DETECTED Nasal Enterovir/Rhinovir PCR NOT DETECTED Nasal Influenza B PCR NOT DETECTED Nasal Influenza A PCR NOT DETECTED Nasal Parainfluen 1 PCR NOT DETECTED Nasal Parainfluen 2 PCR NOT DETECTED Nasal Parainfluen 3 PCR NOT DETECTED Nasal Parainfluen 4 PCR NOT DETECTED Nasal RSV (PCR) NOT DETECTED Nasal B.pertussis DNA PCR NOT DETECTED Nasal C.pneumoniae (PCR) NOT DETECTED Oscar Human Metapneumo PCR NOT DETECTED Nasal M.pneumoniae (PCR) NOT DETECTED Nasal SARS-CoV-2 (PCR) NOT DETECTED PD Medical Decision Making - ED course Complexity details: reviewed results, re-evaluated patient, considered differential, d/w patient, d/w family, d/w corporate learning consultant ED course: Patient is well-appearing, nontoxic. Afebrile. No hypotension. No tachycardia. White blood cell count minimally elevated at 12.3. 9.1 neutrophils. Chemistry is unremarkable. Lactate is normal. Urinalysis is negative. Respiratory PCR is negative. Abdomen remains soft, nontender nondistended on serial exam. Patient refuses pelvic at this time. She denies any vaginal bleeding, discharge or odor at this time. I did discuss the case with OB, Dr. Mann, feels that toxic shock would be unlikely given the patient's current symptoms. I agree given her normal vital signs and lactate. However will cover the patient with clindamycin due to her multiple allergies. Given a dose of IV clindamycin. Her pain did improve with IV Dilaudid. She has been on Dilaudid several times in the past for headaches and took Dilaudid at home for headaches. She states that she does well with hydrocodone as well, therefore we will prescribe hydrocodone for a few days. Likely that this is a viral syndrome, there are several similar viral syndromes in the community currently. Patient is very well-appearing. Tolerating p.o. without difficulty. Ambulating well. Patient counseled regarding signs and symptoms for which I believe and urgent re-evaluation would be necessary. Patient with good understanding of and agreement to plan and is comfortable going home at this time This document was made in part using voice recognition software. While efforts are made to proofread this document, sound alike and grammatical errors may occur. Patient will return in 24 to 36 hours if she fails to improve as expected. Departure - Departure Disposition: Home, Self Care Clinical Impression: Body aches, Viral syndrome Condition: Good Instructions: ED Viral Syndrome Follow-Up: Tan Nguyen [Primary Care Provider] - Within 1 week Prescriptions: clindamycin HCL [Cleocin HCl] 300 mg PO Q6H #40 cap HYDROcod/ACETAM 5/325 [[place] 5/325] 1 - 2 ea PO Q6H PRN #14 tablet PRN Reason: Pain Comments: Your prescriptions were sent to [facility] in [place]. Please drink plenty of fluids. Please follow-up with your doctor for further care. If you are not improved in the next 24 to 36 hours, please return for repeat evaluation. You had blood cultures drawn tonight as well, we will call you if these are positive. Take all antibiotics until gone I am prescribing a short course of narcotic pain medication for you. These are potentially dangerous and addictive medications that should be used carefully. These medications may constipate you. Take an [id number] stool softener (docusate) twice daily with plenty of water while taking these medications. If you go 24 hours without a bowel movement, take [id number] miralax, per package instructions. Do not drink or drive while taking these medications. If you received narcotic or sedating medications while in the emergency department, do not drive for 24 hours. Store this medication in a safe, secure place and out of reach of children. It is a violation of federal law to give or sell this medication to another person or to use in a manner other than prescribed. The ED will not refill narcotic prescriptions, including prescriptions lost or stolen. To dispose of unwanted medications: 1. [facility] at [address] in [place] has a medication drop box. They accept prescription medications (in pill form) Tuesday through Tuesday 9:00 a.m. to 5:00 p.m. 2. The [facility] accepts prescription medications (in pill form only) for disposal year round. Call for more information. 3. Contact the [facility] for the next [facility] sponsored prescription drug collection event. , [phone], or [phone]; Discharge Date/Time: 06/28/22 22:55
[2022-06-28] MEDS: HYDROmorphone 1 MG/ML CARPUJECT IVP STA (22:24)
== END 2022-06-28 22:55 | disposition home or self-care (01) ==
LOC: ED 18:50
DX: B34.9 Viral infection, unspecified (principal); M79.10 Myalgia, unspecified site; Z20.822 Contact with and (suspected) exposure to COVID-19; Z79.899 Other long term (current) drug therapy
CPT/HCPCS: 36415; 80053; 81003; 81025; 83605; 83690; 85025; 87040; 87633; 96365; 96367; 96375; 99284; A9270; J0131; J1170; J7040; 81001; 87086

== ENCOUNTER 2022-12-08 16:34 | Emergency (ER) | payer OTHER ==
[2022-12-08 16:51] VITALS: BP 129/76; O2SAT 100
[2022-12-08] MEDS ORDERED: DROPERIDOL 5 MG/2 ML VIAL IVP STA (17:25)
[2022-12-08] MEDS ORDERED: SODIUM CHLORIDE 0.9% 1,000 ML IV STA (17:25)
[2022-12-08] MEDS ORDERED: KETOROLAC 30 MG/ML VIAL IVP STA (17:25)
--- NOTE | 2022-12-08 17:30 | ED Physician Documentation ---
History of Present Illness - Stated complaint Stated Complaint: MIGRAINE - Chief complaint Chief Complaint: Neuro - History obtained from History obtained from: Patient - History of Present Illness Timing: How many weeks ago (1) Pain level max: 7 Pain level now: 7 - Additonal information Additional information: Patient is a 27-year-old female who presents to the emergency department complaining of a gradual onset headache ongoing for the past 1 week. Has a longstanding history of migraines. Sensitive to light and sound. Has had nausea and vomiting. Has been taking Motrin without relief. Also taking Zofran at home. She states now she feels lightheaded as well when she stands up. Denies any possibility of . Has an IUD. No fevers. No chills. No cough. No congestion. No trauma. No neck or back pain. She states that she had a "migraine surgery" in [facility] and had decompression of her bilateral occipital nerves and left frontal and temporal nerves. Review of Systems Constitutional: denies: Fever, Chills Nose: denies: Rhinorrhea / runny nose, Congestion Throat: denies: Sore throat Cardiac: denies: Chest pain / pressure Respiratory: denies: Cough GI: reports: Nausea, Vomiting. denies: Abdominal Pain, Diarrhea Musculoskeletal: denies: Neck pain, Back pain Neurologic: denies: Focal weakness, Numbness, Seizure, Confused, LOC PD PAST MEDICAL HISTORY - Past Medical History Cardiovascular: None Respiratory: None Neuro: Migraines - Past Surgical History Past Surgical History: No - Present Medications Home Medications: Ambulatory Orders Medication Instructions Recorded Confirmed Promethazine [Phenergan] 25 mg PO Q6H PRN #10 tablet 03/17/22 12/08/22 Fluoxetine HCl [Prozac] 40 mg PO DAILY 12/08/22 12/08/22 Ondansetron [Zuplenz] 8 mg PO Q6HR PRN 12/08/22 12/08/22 Zolpidem [Ambien] 5 mg PO HS PRN 12/08/22 12/08/22 clonazePAM [Clonazepam] 1 mg PO QID PRN 12/08/22 12/08/22 haloperidoL [Haloperidol] 5 mg PO DAILY PRN #5 tablet 12/08/22 - Allergies Allergies/Adverse Reactions: Allergies Allergy/AdvReac Type Severity Reaction Status Date / Time Penicillins Allergy Unknown Verified 12/08/22 16:43 Sulfa (Sulfonamide Allergy Unknown Verified 12/08/22 16:43 Antibiotics) vancomycin Allergy Unknown Verified 12/08/22 16:43 morphine AdvReac Anxiety Verified 12/08/22 16:43 - Social History Does the pt smoke?: No Smoking Status: Never smoker Does the pt drink ETOH?: No Does the pt have substance abuse?: No - Immunizations Immunizations are current?: Yes PD ED PE NORMAL - Vitals Vital signs reviewed: Yes - General General: Alert and oriented X 3, No acute distress - HEENT HEENT: Atraumatic, PERRL, EOMI, Moist mucous membranes - Neck Neck: Supple, no meningeal sign, No bony TTP - Cardiac Cardiac: RRR, Strong equal pulses - Respiratory Respiratory: No respiratory distress, Clear bilaterally - Abdomen Abdomen: Soft, Non tender, Non distended - Derm Derm: Warm and dry - Extremities Extremities: No edema, No calf tenderness / cord - Neuro Neuro: Alert and oriented X 3, brakeshoe repairer 2-12 intact, No motor deficit, No sensory deficit, Normal speech Eye Opening: Spontaneous Motor: Obeys Commands Verbal: Oriented GCS Score: 15 - Psych Psych: Normal mood, Normal affect Results - Vitals Vitals: Oxygen O2 Source Room air - Labs Labs: Laboratory Tests 12/08/22 12/08/22 12/08/22 17:37 17:37 18:48 WBC 10.3 RBC 4.25 Hgb 13.2 Hct 39.3 MCV 92.5 MCH 31.1 H MCHC 33.6 RDW 12.0 Plt Count 261 MPV 10.1 Neut # (Auto) Not Reportable Lymph # (Auto) Not Reportable [place] # (Auto) Not Reportable Eos # (Auto) Not Reportable Baso # (Auto) Not Reportable Absolute Nucleated RBC Not Reportable Total Counted 100 Band Neuts % (Manual) 0 Reactive Lymphs % (Man) 1 Abnorm Lymph % (Manual) 0 Nucleated RBC % Not Reportable Neutrophils # (Manual) 6.5 Lymphocytes # (Manual) 2.2 Monocytes # (Manual) 0.6 Eosinophils # (Manual) 1.0 H Basophils # (Manual) 0.0 Differential Comment MANUAL DIFFERENTIAL Platelet Estimate NORMAL (130-450,000) Platelet Morphology NORMAL APPEARANCE RBC Morph Micro Appear NORMAL APPEARANCE Sodium 140 Potassium 3.6 Chloride 104 Carbon Dioxide 31 Anion Gap 5.0 L BUN 9 Creatinine 0.7 Estimated GFR (MDRD) 99 Glucose 82 Calcium 9.6 Total Bilirubin 0.6 AST 13 ALT 14 Alkaline Phosphatase 49 Total Protein 6.8 Albumin 4.8 Globulin 2.0 L Albumin/Globulin Ratio 2.4 H Lipase 6 L Urine Color YELLOW Urine Clarity CLEAR Urine pH 7.0 Ur Specific [place] 1.010 Urine Protein NEGATIVE Urine Glucose (UA) NEGATIVE Urine Ketones NEGATIVE Urine Occult Blood NEGATIVE Urine Nitrite NEGATIVE Urine Bilirubin NEGATIVE Urine Urobilinogen 0.2 (NORMAL) Ur Leukocyte Esterase NEGATIVE Ur Microscopic Review NOT INDICATED Urine Culture Comments NOT INDICATED Urine HCG, Qual NEGATIVE PD Medical Decision Making - ED course Complexity details: reviewed results, re-evaluated patient, considered differential, d/w patient ED course: Patient with what appears to be her usual migraine headache. She is well appearing, non-toxic. No focal neurological deficits. She did receive a dose of IV droperidol and IV normal saline along with toradol. No significant laboratory abnormalities. No evidence of subarachnoid hemorrhage. No indication for emergent neural imaging. Patient states that triptans do not work for her headaches at home, request to try something different. We will trial her on haloperidol at home as this has been shown to help refractive migraines. Patient counseled regarding signs and symptoms for which I believe an urgent re- evaluation would be necessary. Patient with good understanding of and agreement to plan and is comfortable going home at this time. This document was made in part using voice recognition software. While efforts are made to proofread this document, sound alike and grammatical errors may occur. Departure - Departure Disposition: 01 Home, Self Care Clinical Impression: Migraine Qualifiers: Migraine type: unspecified Status migrainosus presence: without status migr ainosus Intractability: not intractable Qualified Code(s): G43.909 - Migraine, unspecified, not intractable, without status migrainosus Condition: Good Instructions: ED Headache Migraine Follow-Up: Tan Nguyen [Primary Care Provider] - Within 1 week Prescriptions: haloperidoL [Haloperidol] 5 mg PO DAILY PRN #5 tablet PRN Reason: headache Comments: Your medication was sent to the [facility] pharmacy. You did respond well to droperidol tonight, we will trial you on a small dose of haloperidol at home in case you have any further headaches. As we discussed haloperidol is an antipsychotic medication but has been studied in the use of headaches as well. Do not take Zofran with the haloperidol. You can combine it with Benadryl and Motrin. Forms: PCP List Discharge Date/Time: 12/08/22 18:59
[2022-12-08 17:43] LABS: EOSINOPHILS % (AUTO) 10.6 %; HCT - HEMATOCRIT 39.3 % (37.0-47.0); HGB - HEMOGLOBIN 13.2 g/dL (12.0-16.0); LYMPHOCYTES % (AUTO) 21.1 %; MEAN CORPUSCULAR HEMOGLOBIN 31.1 pg (27.0-31.0); MEAN CORPUSCULAR HGB CONC 33.6 g/dL (32.0-36.0); MEAN CORPUSCULAR VOLUME 92.5 fL (81.0-99.0); MEAN PLATELET VOLUME 10.1 fL (7.9-10.8); MONOCYTES % (AUTO) 5.2 %; NEUTROPHILS % (AUTO) 61.8 %; PLT - PLATELET COUNT 261 10^3/uL (130-450); RED BLOOD COUNT 4.25 10^6/uL (4.20-5.40); WHITE BLOOD COUNT 10.3 x10^3/uL (4.8-10.8)
[2022-12-08 17:48] LABS: ABNORMAL LYMPHS % (MANUAL) 0 %; BAND NEUTROPHILS % (MANUAL) 0 %
[2022-12-08 18:02] LABS: ALBUMIN 4.8 g/dL (3.2-5.5); ALBUMIN/GLOBULIN RATIO 2.4 (1.0-2.2); BILIRUBIN,TOTAL 0.6 mg/dL (0.2-1.0); CALCIUM 9.6 mg/dL (8.5-10.3); CREATININE 0.7 mg/dL (0.6-1.3); POTASSIUM 3.6 mmol/L (3.5-4.5); TOTAL PROTEIN 6.8 g/dL (6.4-8.9)
[2022-12-08 18:24] LABS: LYMPHOCYTES # (MANUAL) 2.2 10^3/uL (1.5-3.5); LYMPHOCYTES % (MANUAL) 20 %; MONOCYTES # (MANUAL) 0.6 10^3/uL (0.0-1.0); NEUTROPHILS # (MANUAL) 6.5 10^3/uL (1.5-6.6); REACTIVE LYMPHS % (MANUAL) 1 %
[2022-12-08 18:25] LABS: DIFFERENTIAL COMMENT MANUAL DIFFERENTIAL; PLATELET ESTIMATE, MANUAL NORMAL (130-450,000) (NORMAL); PLATELET MORPHOLOGY NORMAL APPEARANCE (NORMAL); RBC MORPHOLOGY (MULTIPLE) NORMAL APPEARANCE (NORMAL)
[2022-12-08 18:53] LABS: BILIRUBIN,URINE NEGATIVE (NEGATIVE); GLUCOSE, URINE (UA) NEGATIVE (NEGATIVE); KETONES,URINE (UA) NEGATIVE (NEGATIVE); LEUKOCYTE ESTERASE, URINE NEGATIVE (NEGATIVE); NITRITE,URINE NEGATIVE (NEGATIVE); OCCULT BLOOD,URINE NEGATIVE (NEGATIVE); PROTEIN,URINE NEGATIVE (NEGATIVE); UROBILINOGEN,URINE 0.2 (NORMAL) E.U./dL (NORMAL)
[2022-12-08 18:55] LABS: CLARITY,URINE CLEAR (CLEAR); HCG UR QUAL NEGATIVE
== END 2022-12-08 18:59 | disposition home or self-care (01) ==
LOC: ED 16:34
DX: G43.909 Migraine, unspecified, not intractable, without status migrainosus (principal)
CPT/HCPCS: 36415; 80053; 81001; 81003; 81025; 83690; 85025; 87086; 96374; 99283

== ENCOUNTER 2023-02-08 11:45 | Emergency (ER) | payer OTHER ==
[2023-02-08] MEDS ORDERED: KETOROLAC 30 MG/ML VIAL IVP STA (13:04)
[2023-02-08] MEDS ORDERED: SODIUM CHLORIDE 0.9% 1,000 ML IV STA (13:04)
--- NOTE | 2023-02-08 13:07 | ED Physician Documentation ---
PD HPI HEADACHE - Stated complaint Stated Complaint: VOMIT,DIZZY,DISCOMFORT - Chief complaint Chief Complaint: Neuro - History obtained from History obtained from: Patient, Family - History of Present Illness Timing - onset: Yesterday Timing - onset during: Rest Timing - duration: Days (2) Timing - details: Gradual onset Pain level max: 8 Pain level now: 8 Location: Front Quality: Throbbing, Aching Associated symptoms: Nausea, Vomiting. No: Fever, Stiff neck, Weakness, Numbness, Syncope, Seizure, Eye pain, Vision changes Improved by: Rest, Dark room, Quiet Worsened by: Light, Noise Contributing factors: No: Anticoagulated Similar symptoms before: Diagnosis (migraines) - Additional information Additional information: Patient with a headache for the past 2 days. States feels similar to her prior migraine headaches. Took her Nurtec at home without relief. No fevers. No chills. No recent illnesses. Denies any possibility of . Gradual onset headache. No neck or back pain. Nausea but no vomiting. 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1 - Past Surgical History Past Surgical History: Yes HEENT: Tonsil/Adenoidectomy - Present Medications Home Medications: Ambulatory Orders Medication Instructions Recorded Confirmed Promethazine [Phenergan] 25 mg PO Q6H PRN #10 tablet 03/17/22 02/08/23 Ondansetron [Zuplenz] 8 mg PO Q6HR PRN 12/08/22 02/08/23 clonazePAM [Clonazepam] 1 mg PO QID PRN 12/08/22 02/08/23 haloperidoL [Haloperidol] 5 mg PO DAILY PRN #5 tablet 12/08/22 02/08/23 Rimegepant Sulfate [Nurtec Odt] 75 mg SL DAILY PRN 02/08/23 02/08/23 traZODone [Desyrel] 50 mg PO HS PRN 02/08/23 02/08/23 - Allergies Allergies/Adverse Reactions: Allergies Allergy/AdvReac Type Severity Reaction Status Date / Time Penicillins Allergy Unknown Verified 02/08/23 12:17 Sulfa (Sulfonamide Allergy Unknown Verified 02/08/23 12:17 Antibiotics) vancomycin Allergy Unknown Verified 02/08/23 12:17 morphine AdvReac Anxiety Verified 02/08/23 12:17 - Social History Does the pt smoke?: Yes Smoking Status: Current every day smoker Does the pt drink ETOH?: No Does the pt have substance abuse?: No - Immunizations Immunizations are current?: Yes PD ED PE NORMAL - Vitals Vital signs reviewed: Yes - General General: Alert and oriented X 3, No acute distress - HEENT HEENT: PERRL, Moist mucous membranes - Neck Neck: Supple, no meningeal sign - Cardiac Cardiac: RRR, Strong equal pulses - Respiratory Respiratory: No respiratory distress, Clear bilaterally - Abdomen Abdomen: Soft, Non tender, Non distended - Back Back: No spinal TTP - Derm Derm: Warm and dry - Extremities Extremities: No edema, No calf tenderness / cord - Neuro Neuro: Alert and oriented X 3, mate first 2-12 intact, No motor deficit, No sensory deficit, Normal speech Eye Opening: Spontaneous Motor: Obeys Commands Verbal: Oriented GCS Score: 15 - Psych Psych: Normal mood, Normal affect Results - Vitals Vitals: Vital Signs - 24 hr 02/08/23 02/08/23 02/08/23 12:13 13:55 14:16 Temperature 36.4 C L Heart Rate 77 70 82 Respiratory 16 16 14 Rate Blood Pressure 119/78 107/73 113/76 O2 Saturation 99 100 100 Oxygen O2 Source Room air PD Medical Decision Making - ED course Complexity details: re-evaluated patient, considered differential, d/w patient, d/w family ED course: Patient with her usual migraine headache. No evidence of infection or trauma. No indication for emergent neuroimaging. Given Toradol, Compazine and Benadryl. Headache resolved. Patient request to go home. She is well-appearing, nontoxic. Afebrile. No neurological deficits. Patient counseled regarding signs and symptoms for which I believe and urgent re-evaluation would be necessary. Patient with good understanding of and agreement to plan and is comfortable going home at this time This document was made in part using voice recognition software. While efforts are made to proofread this document, sound alike and grammatical errors may occur. Departure - Departure Disposition: 01 Home, Self Care Clinical Impression: Migraine Qualifiers: Migraine type: unspecified Status migrainosus presence: without status migrainosus Intractability: not intractable Qualified Code(s): G43.909 - Migraine, unspecified, not intractable, without status migrainosus Condition: Good Instructions: ED Headache Migraine Follow-Up: your,doctor in 1 week [Other] Comments: Go home and rest today. Please follow-up with your doctor regarding your migraines. Please return if you worsen. Forms: PCP List Discharge Date/Time: 02/08/23 14:24
[2023-02-08] MEDS ORDERED: PROCHLORPERAZINE 10 MG/2 ML VIAL IVP STA (13:24)
[2023-02-08] MEDS ORDERED: diphenhydrAMINE INJ 50 MG/ML VIAL IVP STA (13:24)
[2023-02-08] MEDS: DROPERIDOL 5 MG/2 ML VIAL IVP STA (13:41)
[2023-02-08 13:59] VITALS: O2SAT 100
[2023-02-08 14:19] VITALS: BP 113/76
== END 2023-02-08 14:24 | disposition home or self-care (01) ==
LOC: ED 11:45
DX: G43.909 Migraine, unspecified, not intractable, without status migrainosus (principal); F17.200 Nicotine dependence, unspecified, uncomplicated
CPT/HCPCS: 96374; 96375; 99283; J1200

== ENCOUNTER 2023-05-19 12:50 | Outpatient (CLI) | payer OTHER | END 2023-05-19 23:59 | disposition critical access hospital (66) | LOC: EMS 12:50 | DX: R07.89 Other chest pain (principal) | CPT/HCPCS: A0425; A0429 ==

== ENCOUNTER 2023-05-19 13:20 | Emergency (ER) | payer OTHER ==
--- NOTE | 2023-05-19 13:42 | ED Physician Documentation ---
PD HPI CHEST PAIN - Stated complaint Stated Complaint: CHEST PAIN - Chief complaint Chief Complaint: Cardiac - Additional information Additional information: 28-year-old female presents emergency department for chest pain. Patient has a past medical history of leukemia from age [age] she completed chemo at that time. She also reports that she has had 2 hospitalizations of heart failure in 2009 and 2019 due to anorexia nervosa. Patient says that on Tuesday, May 16 she started to experience panic attacks she said that she has had about 4 episodes of nausea and vomiting at that point in time which is normal for her she is experiencing panic attacks. She feels like the chest pain has not gone away but it has increased in severity and now she is feeling like anytime she takes a deep breath she feels it in her mid sternum area. She has also complaining of new left chest burning sensation. No young cardiac history or disease in her family. PD PAST MEDICAL HISTORY - Past Medical History Past Medical History: Yes Cardiovascular: Congestive heart failure Respiratory: None Neuro: Migraines Psych: Eating disorder - Past Surgical History Past Surgical History: Yes HEENT: Tonsil/Adenoidectomy - Present Medications Home Medications: Ambulatory Orders Medication Instructions Recorded Confirmed clonazePAM [Clonazepam] 1 mg PO QID PRN 12/08/22 05/19/23 Rimegepant Sulfate [Nurtec Odt] 75 mg SL DAILY PRN 02/08/23 05/19/23 traZODone [Desyrel] 50 mg PO HS PRN 02/08/23 05/19/23 - Allergies Allergies/Adverse Reactions: Allergies Allergy/AdvReac Type Severity Reaction Status Date / Time Penicillins Allergy Unknown Verified 05/19/23 13:33 Sulfa (Sulfonamide Allergy Unknown Verified 05/19/23 13:33 Antibiotics) vancomycin Allergy Unknown Verified 05/19/23 13:33 morphine AdvReac Anxiety Verified 05/19/23 13:33 - Social History Does the pt smoke?: Yes Smoking Status: Current every day smoker Does the pt drink ETOH?: No Does the pt have substance abuse?: No - Immunizations Immunizations are current?: Yes PD ED PE NORMAL - Vitals Vital signs reviewed: Yes - General General: Alert and oriented X 3, No acute distress, Well developed/nourished - HEENT HEENT: Atraumatic - Cardiac Cardiac: RRR, No murmur, No gallop, Strong equal pulses - Respiratory Respiratory: No respiratory distress, Clear bilaterally - Abdomen Abdomen: Normal bowel sounds, Non tender - Back Back: No CVA TTP - Derm Derm: Normal color, Warm and dry, No rash - Extremities Extremities: No deformity, No edema, No calf tenderness / cord - Psych Psych: Normal mood, Other (flat affect, poor eye contact) Results - Vitals Vitals: Vital Signs - 24 hr 05/19/23 05/19/23 13:28 16:00 Temperature 36.8 C 36.5 C Heart Rate 77 72 Respiratory 16 16 Rate Blood Pressure 128/75 134/81 H O2 Saturation 99 100 Oxygen O2 Source Room air - EKG (time done) 1331 EKG releavant findings:: EKG personally interpreted by author of this note. Relevant findings are: Rate: Rate (enter#) (69) Rhythm: NSR [place]: LAD Intervals: Normal LA Ischemia: Normal ST segments Computer interpretation: Agree with computer - Labs Labs: Laboratory Tests 05/19/23 05/19/23 05/19/23 13:56 13:56 13:56 WBC 8.6 RBC 4.54 Hgb 14.0 Hct 42.5 MCV 93.6 MCH 30.8 MCHC 32.9 RDW 12.6 Plt Count 281 MPV 10.3 Neut # (Auto) 5.0 Lymph # (Auto) 2.1 [place] # (Auto) 0.5 Eos # (Auto) 0.9 H Baso # (Auto) 0.1 Absolute Nucleated RBC 0.00 Nucleated RBC % 0.0 Sodium 138 Potassium 3.4 L Chloride 102 Carbon Dioxide 30 Anion Gap 6.0 BUN 9 Creatinine 0.7 Estimated GFR (MDRD) 98 Glucose 87 Calcium 9.9 Total Bilirubin 0.5 AST 13 ALT 14 Alkaline Phosphatase 53 Troponin I High Sens < 2.3 L B-Natriuretic Peptide 21 Total Protein 7.2 Albumin 4.8 Globulin 2.4 Albumin/Globulin Ratio 2.0 Lipase < 10 L - Rads (name of study) Chest x-ray Relevant Findings:: Final report received, EMP independent interpretation of test, Other (No acute cardiopulmonary abnormalities) PD Medical Decision Making - ED course ED course: Exam without evidence of volume overload so doubt heart failure. EKG without signs of active ischemia. Given the timing of pain to ER presentation, single troponin negative so doubt NSTEMI. Presentation not consistent with acute PE (PERC negative),pneumothorax (not visualized on chest xr), thoracic aortic dissection, pericarditis, tamponade, pneumonia (no infectious symptoms, clear chest xr), myocarditis (no recent illness, neg trop). HEART score: 0 so plan to discharge patient home with PCP follow up. Patient told to follow-up with primary care provider as well as cardiology she has had thorough workup with cardiology in the past including a Zio patch which has come back unremarkable. She was offered a GI cocktail as well as hydroxyzine here in the emergency department she declined. At this point I believe that she is safe for discharge, return precautions given. Departure - Departure Disposition: Home, Self Care Clinical Impression: Chest pain Qualifiers: Chest pain type: chest pain on breathing Qualified Code(s): R07.1 - Chest pain on breathing Instructions: ED Chest Pain Atypical Unkn Cause Comments: Thank you for trusting us with your care. We have completed labs, EKG, chest x- ray and we are not finding any abnormalities at this point in time. I do not believe that your chest pain is due to a heart attack at this point in time I did strongly encourage you to follow-up with your website programmer for further evaluation. Please come back to the emergency department for chest pain is starting to change or worsen, dizziness, vision changes, or any other concerning worsening symptoms. Forms: PCP List Discharge Date/Time: 05/19/23 16:02
[2023-05-19 14:02] LABS: BASOPHILS # (AUTO) 0.1 10^3/uL (0.0-0.1); EOSINOPHILS # (AUTO) 0.9 10^3/uL (0.0-0.7); EOSINOPHILS % (AUTO) 10.8 %; HCT - HEMATOCRIT 42.5 % (37.0-47.0); LYMPHOCYTES # (AUTO) 2.1 10^3/uL (1.5-3.5); LYMPHOCYTES % (AUTO) 24.4 %; MEAN CORPUSCULAR HEMOGLOBIN 30.8 pg (27.0-31.0); MEAN CORPUSCULAR HGB CONC 32.9 g/dL (32.0-36.0); MEAN CORPUSCULAR VOLUME 93.6 fL (81.0-99.0); MEAN PLATELET VOLUME 10.3 fL (7.9-10.8); MONOCYTES # (AUTO) 0.5 10^3/uL (0.0-1.0); MONOCYTES % (AUTO) 5.8 %; NEUTROPHILS % (AUTO) 57.8 %; PLT - PLATELET COUNT 281 10^3/uL (130-450); RED BLOOD COUNT 4.54 10^6/uL (4.20-5.40); RED CELL DISTRIBUTION WIDTH 12.6 % (12.0-15.0); WHITE BLOOD COUNT 8.6 x10^3/uL (4.8-10.8)
[2023-05-19 14:20] LABS: ALBUMIN 4.8 g/dL (3.2-5.5); ALKALINE PHOSPHATASE 53 IU/L (42-121); ALT ALANINE AMINOTRANSFERASE 14 IU/L (10-60); AST ASPARTATE AMINOTRANSFERASE 13 IU/L (10-42); BILIRUBIN,TOTAL 0.5 mg/dL (0.2-1.0); BUN - BLOOD UREA NITROGEN 9 mg/dL (6-20); CALCIUM 9.9 mg/dL (8.5-10.3); CARBON DIOXIDE - CO2 30 mmol/L (21-32); CHLORIDE 102 mmol/L (101-111); CREATININE 0.7 mg/dL (0.6-1.3); GFR - MDRD 98 (>89); GLUCOSE 87 mg/dL (74-104); LIPASE < 10 U/L (11-82); POTASSIUM 3.4 mmol/L (3.5-4.5); SODIUM 138 mmol/L (135-145); TOTAL PROTEIN 7.2 g/dL (6.4-8.9)
[2023-05-19 14:27] LABS: TROPONIN I HIGH SENSITIVITY < 2.3 ng/L (2.3-14.8)
--- NOTE | 2023-05-19 15:00 | XRAY Report ---
PROCEDURE: Chest 2V INDICATIONS: SOA, CP TECHNIQUE: 2 views of the chest were acquired. COMPARISON: None. FINDINGS: Surgical changes and devices: None. Lungs and pleura: No pleural effusions or pneumothorax. Lungs are clear. Mediastinum: Mediastinal contours appear normal. Heart size is normal. Bones and chest wall: No suspicious bony lesions. Overlying soft tissues appear unremarkable. IMPRESSION: No acute cardiopulmonary process. Reviewed by: Goyo Burton MD on 05/19/2023 2:58 PM PDT Approved by: Goyo Burton MD on 05/19/2023 2:58 PM PDT Station ID: [id number]
[2023-05-19] MEDS: GI COCKTAIL 120 ML BOTTLE PO STA (15:19)
[2023-05-19 16:05] VITALS: BP 134/81; O2SAT 100
== END 2023-05-19 16:02 | disposition home or self-care (01) ==
LOC: EDUNIT# → ED 13:20
DX: R07.1 Chest pain on breathing (principal); I50.9 Heart failure, unspecified; F17.200 Nicotine dependence, unspecified, uncomplicated; Z79.899 Other long term (current) drug therapy
CPT/HCPCS: 36415; 80053; 83690; 83880; 84484; 85025; 93005; 99284

== ENCOUNTER 2023-08-27 09:05 | Outpatient (CLI) | payer OTHER ==
--- NOTE | 2023-08-29 22:51 | MRI Report ---
Elbow LT WO CLINICAL HISTORY: 28 years of age, Female, ULNAR NERVE NEUROPATHY. COMPARISON: None. Technique: Multisequence, multiplanar MRI of the left elbow was performed without contrast. FINDINGS: Tendons: The biceps tendon is intact. Trace radiobicipital bursitis. Brachialis tendon is normal. The triceps tendon is normal. Medial structures: Common flexor tendon is normal. The ulnar collateral ligament is normal. Lateral structures: Common extensor tendon is normal.The lateral collateral ligament, and the lateral ulnar collateral ligament are normal. Bones: Normal bone marrow. No edema or acute fracture. Cartilage is normal. 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 No anconeus epitrochlearis muscle. Others: No elbow effusion. IMPRESSION: 1.Findings suggestive of ulnar neuritis. 2.Trace radiobicipital bursitis. Reviewed by: Debbie Boyce MD on 08/29/2023 10:50 PM PDT Approved by: Debbie Boyce MD on 08/29/2023 10:50 PM PDT Station ID: [id number]
== END 2023-08-27 09:06 | disposition home or self-care (01) ==
LOC: DI 09:05
PROVIDERS: ATTEND Family Medicine
DX: G56.22 Lesion of ulnar nerve, left upper limb (principal); M70.32 Other bursitis of elbow, left elbow; N94.12 Deep dyspareunia; N70.11 Chronic salpingitis; Z97.5 Presence of (intrauterine) contraceptive device

== ENCOUNTER 2023-08-27 09:07 | Outpatient (CLI) | payer OTHER ==
--- NOTE | 2023-08-27 13:10 | Ultrasound Report ---
PROCEDURE: Pelvic w/Transvaginal INDICATIONS: DEEP DYSPAREUNIA TECHNIQUE: Real-time scanning was performed of the pelvic organs, with image documentation. Additional endovagi nal scanning was necessary due to incomplete visualization of the adnexal and endometrial structures by transabdominal scanning. COMPARISON: None. FINDINGS: Uterus: Uterus is retroverted and normal in size at 7.6 x 4.0 x 4.8 cm. The myometrium is homogeneo us. The endometrium measures 3 mm in combined thickness. IUD located within the mid to upper uterin e segment, 5 mm from the superior aspect of the fundus. This is likely within normal limits. Ovaries: The right ovary measures 3.9 x 2.0 x 3.2 cm, with a calculated ovarian volume of 13 cc. Th e left ovary measures 2.9 x 1.7 x 2.5 cm, with a calculated ovarian volume of 6.5 cc. The ovaries kam ve a normal sonographic appearance. Greater than 12 follicles can be seen in each ovary. No adnexal masses are seen. Mild right-sided hydrosalpinx. Other: No pathologic free abdominal or pelvic fluid. IMPRESSION: Greater than 12 follicles can be seen in each ovary, which can be seen in the clinical setting of PCO S. Mild right sided hydrosalpinx. IUD appears appropriately positioned within the endometrial cavity. Reviewed by: Ronal Ferraro MD on 08/27/2023 1:09 PM PDT Approved by: Ronal Ferraro MD on 08/27/2023 1:09 PM PDT Station ID: [id number]
== END 2023-08-27 09:08 | disposition home or self-care (01) ==
LOC: DI 09:07
PROVIDERS: ATTEND Family Medicine
DX: N94.12 Deep dyspareunia (principal); N70.11 Chronic salpingitis; Z97.5 Presence of (intrauterine) contraceptive device

== ENCOUNTER 2024-05-12 20:21 | Inpatient (IN) ==
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
[2024-05-12 20:51] LABS: BASOPHILS # (AUTO) 0.1 10^3/uL (0.0-0.1); BASOPHILS % (AUTO) 0.3 %; EOSINOPHILS # (AUTO) 0.3 10^3/uL (0.0-0.7); EOSINOPHILS % (AUTO) 1.7 %; HGB - HEMOGLOBIN 12.1 g/dL (12.0-16.0); LYMPHOCYTES # (AUTO) 2.5 10^3/uL (1.5-3.5); LYMPHOCYTES % (AUTO) 13.9 %; MEAN CORPUSCULAR HEMOGLOBIN 30.5 pg (27.0-31.0); MEAN CORPUSCULAR HGB CONC 33.6 g/dL (32.0-36.0); MEAN CORPUSCULAR VOLUME 90.7 fL (81.0-99.0); MEAN PLATELET VOLUME 10.8 fL (7.9-10.8); MONOCYTES # (AUTO) 1.1 10^3/uL (0.0-1.0); NEUTROPHILS # (AUTO) 13.9 10^3/uL (1.5-6.6); NEUTROPHILS % (AUTO) 77.5 %; PLT - PLATELET COUNT 231 10^3/uL (130-450); RED BLOOD COUNT 3.97 10^6/uL (4.20-5.40); RED CELL DISTRIBUTION WIDTH 11.8 % (12.0-15.0); WHITE BLOOD COUNT 17.9 x10^3/uL (4.8-10.8)
[2024-05-12] MEDS: SODIUM CHLORIDE 0.9% 1,000 ML IV STA (20:56)
[2024-05-12 21:06] LABS: ALBUMIN/GLOBULIN RATIO 1.9 (1.0-2.2); ALKALINE PHOSPHATASE 54 IU/L (42-121); ALT ALANINE AMINOTRANSFERASE 10 IU/L (10-60); AST ASPARTATE AMINOTRANSFERASE 10 IU/L (10-42); BILIRUBIN,TOTAL 0.6 mg/dL (0.2-1.0); BUN - BLOOD UREA NITROGEN 10 mg/dL (6-20); CALCIUM 8.5 mg/dL (8.5-10.3); CARBON DIOXIDE - CO2 27 mmol/L (21-32); CHLORIDE 107 mmol/L (101-111); CREATININE 0.7 mg/dL (0.6-1.3); ETOH - ETHANOL < 10.0 mg/dL; GFR - MDRD 98 (>89); GLUCOSE 91 mg/dL (74-104); POTASSIUM 3.2 mmol/L (3.5-4.5); SODIUM 139 mmol/L (135-145); TOTAL PROTEIN 6.1 g/dL (6.4-8.9)
[2024-05-12 21:27] LABS: CARBOXYHEMOGLOBIN VENOUS 2.2 % (0-1.5); HEMOGLOBIN TOTAL, VENOUS WB 12.2 g/dL (12.0-15.6); METHEMOGLOBIN VENOUS 0.5 % (<0.3-1.5); OXYHEMOGLOBIN, VENOUS 97 % (94-97)
[2024-05-12] MEDS: POTASSIUM CHLORIDE 20 MEQ TABLET PO STA (21:33)
[2024-05-12 21:36] LABS: LITHIUM < 0.10 mmol/L
[2024-05-12 22:32] LABS: B. PARAPERTUSSIS- RESP PCR PAN NOT DETECTED; B. PERTUSSIS- RESP PCR PANEL NOT DETECTED; C. PNEUMONIAE- RESP PCR PANEL NOT DETECTED; CORONAVIRUS 229E-RESP PCR NOT DETECTED; CORONAVIRUS HKU1-RESP PCR NOT DETECTED; CORONAVIRUS NL63-RESP PCR NOT DETECTED; CORONAVIRUS OC43-RESP PCR NOT DETECTED; HUMAN METAPNEUMOVIRUS NOT DETECTED; INFLUENZA A- RESP PCR PANEL NOT DETECTED; INFLUENZA B - RESP PCR PANEL NOT DETECTED; M. PNEUMONIAE- RESP PCR PANEL NOT DETECTED; PARAINFLUENZA VIRUS 1 NOT DETECTED; PARAINFLUENZA VIRUS 2 NOT DETECTED; PARAINFLUENZA VIRUS 4 NOT DETECTED; RHINOVIRUS/ENTEROVIRUS NOT DETECTED; RSV- RESP PCR PANEL NOT DETECTED; SARS-CoV-2 -RESP PCR PANEL NOT DETECTED
[2024-05-13] MEDS: lidocaine 1% 20 ML MDV SUBQ ONE (00:04)
[2024-05-13 00:59] LABS: BILIRUBIN,URINE NEGATIVE (NEGATIVE); GLUCOSE, URINE (UA) NEGATIVE (NEGATIVE); KETONES,URINE (UA) NEGATIVE (NEGATIVE); LEUKOCYTE ESTERASE, URINE NEGATIVE (NEGATIVE); NITRITE,URINE NEGATIVE (NEGATIVE); OCCULT BLOOD,URINE NEGATIVE (NEGATIVE); PROTEIN,URINE NEGATIVE (NEGATIVE); UROBILINOGEN,URINE 0.2 (NORMAL) E.U./dL (NORMAL)
[2024-05-13 01:07] LABS: CLARITY,URINE CLEAR (CLEAR)
[2024-05-13 01:11] LABS: AMPHETAMINE SCREEN,URINE NEGATIVE (NEGATIVE); BARBITURATE SCREEN,UR NEGATIVE (NEGATIVE); BENZODIAZEPINES SCREEN, URINE POSITIVE (NEGATIVE); BUPRENORPHINE SCREEN, URINE NEGATIVE (NEGATIVE); COCAINE SCREEN URINE NEGATIVE (NEGATIVE); METHADONE SCREEN, URINE NEGATIVE (NEGATIVE); METHAMPHETAMINES SCREEN, URINE NEGATIVE (NEGATIVE); OPIATE SCREEN, URINE NEGATIVE (NEGATIVE); OXYCODONE SCREEN, URINE NEGATIVE (NEGATIVE); THC CANNABINOID SCREEN, URINE POSITIVE (NEGATIVE); TRICYCLIC ANTIDEPRESSANT,URINE POSITIVE (NEGATIVE)
[2024-05-13] MEDS: MIDAZOLAM 2 MG/2 ML VIAL IVP STA ×3 (01:51→02:27)
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
[2024-05-13 04:08] LABS: CSF - GLUCOSE 66 mg/dL (45-70); TOTAL PROTEIN,CSF 43 mg/dL (15-45)
[2024-05-13 04:11] LABS: CLARITY,CSF CLEAR (CLEAR); COLOR,CSF COLORLESS (COLORLESS); CSF TUBE # CSF TUBE# 3; CSF XANTHOCHROMIA ABSENT (ABSENT); RED BLOOD CELL,CSF 0 /mm^3 (0-1); WHITE BLOOD CELL,CSF 3 /mm^3 (0-5)
[2024-05-13] MEDS ORDERED: ONDANSETRON 4 MG/2 ML VIAL IVP PRN (04:46)
[2024-05-13] MEDS ORDERED: SODIUM CHLORIDE FLUSH 0.9% 10 ML SYRINGE IVP PRN (04:46)
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
[2024-05-13] MEDS ORDERED: cefTRIAXone 1 GM VIAL ONE (05:10)
[2024-05-13] MEDS: cefTRIAXone 1 GM in SODIUM CHLORIDE 0.9% MINIBAG 100 ML IV STA (05:23)
[2024-05-13] MEDS: SODIUM CHLORIDE 0.9% 1,000 ML IV SCH (05:23)
[2024-05-13] MEDS: ACETAMINOPHEN 325 MG TABLET PO PRN (06:30)
[2024-05-13 07:39] LABS: HCT - HEMATOCRIT 35.2 % (37.0-47.0); HGB - HEMOGLOBIN 11.6 g/dL (12.0-16.0); MEAN CORPUSCULAR HEMOGLOBIN 30.8 pg (27.0-31.0); MEAN CORPUSCULAR VOLUME 93.4 fL (81.0-99.0); MEAN PLATELET VOLUME 10.6 fL (7.9-10.8); RED BLOOD COUNT 3.77 10^6/uL (4.20-5.40); RED CELL DISTRIBUTION WIDTH 12.1 % (12.0-15.0); WHITE BLOOD COUNT 11.6 x10^3/uL (4.8-10.8)
[2024-05-13 08:02] LABS: CALCIUM 8.8 mg/dL (8.5-10.3); CREATININE 0.9 mg/dL (0.6-1.3); POTASSIUM 3.5 mmol/L (3.5-4.5)
[2024-05-13] MEDS: KETOROLAC 30 MG/ML VIAL IVP SCH (09:40)
[2024-05-13] MEDS: SODIUM CHLORIDE FLUSH 0.9% 10 ML SYRINGE IVP SCH (09:42)
--- NOTE | 2024-05-13 10:06 | PHARMACY PROGRESS NOTE ---
Best Possible Medication History Admit Date and Time: 05/13/24 [id number] Home Medications Medication Instructions Recorded Confirmed Type fluoxetine 20 mg capsule 20 mg PO DAILY 03/08/24 05/13/24 History risperidone 2 mg tablet 6 mg PO QPM 03/08/24 05/13/24 History sumatriptan succinate 6 mg/0.5 mL 6 mg subcut ONCE PRN migraine 03/08/24 05/13/24 History subcutaneous pen injector headache topiramate 50 mg tablet 50 mg PO BID 03/08/24 05/13/24 History clonazepam 1 mg tablet 1 mg PO DAILY 05/13/24 05/13/24 History cyclobenzaprine 10 mg tablet 10 mg PO TID PRN muscle spasm 05/13/24 05/13/24 History diazepam 5 mg tablet 20 mg PO TID 05/13/24 05/13/24 History gabapentin 300 mg capsule 300 mg PO TID 05/13/24 05/13/24 History ketorolac 60 mg/2 mL intramuscular 60 mg IM ONCE PRN headache 05/13/24 05/13/24 History solution lithium carbonate 300 mg 900 mg PO QPM 05/13/24 05/13/24 History tablet,extended release onabotulinumtoxinA 200 unit 155 unit IM [id number] 05/13/24 05/13/24 History solution for injection (Botox) ondansetron 4 mg disintegrating 4 mg PO Q6H PRN nausea and vomiting 05/13/24 05/13/24 History tablet oxycodone 5 mg tablet 5 mg PO DAILY PRN pain 05/13/24 05/13/24 History rimegepant 75 mg disintegrating 75 mg PO ONCE PRN migraine headache 05/13/24 05/13/24 History tablet (Nurtec ODT) trazodone 150 mg tablet 150 mg PO QPM PRN sleep 05/13/24 05/13/24 History Processed by: Pharmacy Medications reviewed in ED?: No Medication History completed: Yes Patient Interview: Completed Secondary Source(s): Pharmacy records and Insurance records [facility] Statement: As the person ultimately responsible for medication therapy, providers are able to order a medication from an existing home medication list in [facility] via the "Reconcile Routine" prior to Confirmation of that medication by business support manager. Such practice is discouraged except when the physician, in their clinical judgment, deems that a medical need exists for a medication without regard to previous use.
[2024-05-13] MEDS ORDERED: IBUPROFEN 400 MG TABLET PO PRN (13:19)
[2024-05-13] MEDS: TOPIRAMATE 25 MG TABLET PO SCH (13:53)
[2024-05-13] MEDS: diazePAM 5 MG TABLET PO SCH (13:53)
[2024-05-13] MEDS: HYDROcod/ACETAM 5/325 MG TABLET PO ONE (13:53)
[2024-05-13] MEDS: KETOROLAC 30 MG/ML VIAL IVP PRN (17:09)
[2024-05-13] MEDS: FLUoxetine 10 MG CAPSULE PO SCH (21:11)
[2024-05-13] MEDS: traZODone 50 MG TABLET PO PRN (22:13)
[2024-05-13] MEDS: LITHIUM ER 300 MG TABLET PO SCH (22:13)
[2024-05-14 08:40] VITALS: O2SAT 97
[2024-05-14] MEDS: HYDROcod/ACETAM 5/325 MG TABLET PO ONE (09:26)
[2024-05-14 09:58] LABS: HCT - HEMATOCRIT 35.8 % (37.0-47.0); HGB - HEMOGLOBIN 12.1 g/dL (12.0-16.0); MEAN CORPUSCULAR HEMOGLOBIN 30.9 pg (27.0-31.0); MEAN CORPUSCULAR HGB CONC 33.8 g/dL (32.0-36.0); MEAN CORPUSCULAR VOLUME 91.6 fL (81.0-99.0); MEAN PLATELET VOLUME 10.6 fL (7.9-10.8); RED BLOOD COUNT 3.91 10^6/uL (4.20-5.40); RED CELL DISTRIBUTION WIDTH 11.9 % (12.0-15.0); WHITE BLOOD COUNT 8.9 x10^3/uL (4.8-10.8)
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
[2024-05-14 10:12] LABS: CALCIUM 8.9 mg/dL (8.5-10.3); CREATININE 0.9 mg/dL (0.6-1.3); POTASSIUM 3.5 mmol/L (3.5-4.5)
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
[2024-05-14] MEDS ORDERED: GADOTERATE MEGLUMINE 10 MMOL/20 ML VIAL ONE (11:50)
[2024-05-14] MEDS: GADOTERATE MEGLUMINE 10 MMOL/20 ML VIAL IVP ONE (12:20)
[2024-05-14 12:43] VITALS: BP 123/77; TEMP 97.5
--- NOTE | 2024-05-14 13:22 | MRI Report ---
PROCEDURE: MRI Brain W/WO INDICATIONS: AMS CONTRAST: clariscan 14ml TECHNIQUE: Noncontrast axial T1 spin echo, axial T2 fast spin echo, sagittal and axial FLAIR, coronal T2 fast sp in echo, axial gradient echo, axial diffusion and ADC through the brain. After the administration of contrast, axial and coronal T1 spin echo with fat saturation through the brain. COMPARISON: CT of brain dated 05/11/2024. FINDINGS: Image quality: Excellent. CSF spaces: Basal cisterns are patent. No extra-axial fluid collections. Ventricles are normal in size and shape. Brain: No midline shift. No intracranial bleeds or masses. No abnormal intracranial enhancement. T he brainstem appears normal. Diffusion-weighted images demonstrate no acute ischemic insults. No ch ronic ischemic insults. Normal intravascular flow voids are present. Skull and face: Calvarial marrow is normal in signal. Orbits appear normal. Sinuses: Sinuses and mastoids appear clear. IMPRESSION: Unremarkable MRI examination of brain with and without contrast. No finding to explain p atient's symptoms. Reviewed by: Goyo Burton MD on 05/14/2024 1:21 PM PDT Approved by: Goyo Burton MD on 05/14/2024 1:21 PM PDT Station ID: [id number]
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
== END 2024-05-14 14:05 | disposition home or self-care (01) | DRG 93 ==
LOC: ED 20:21 → MS3 05-13 05:11
PROVIDERS: ADMIT Internal Medicine; ATTEND Internal Medicine